=== PATIENT | male | born 1960 | race Caucasian/White ===

== ENCOUNTER → 2017-09-28 05:54 | Outpatient (CLI) | payer BC, SELFPAY ==
[2017-09-28 06:43] LABS: Absolute Lymphocyte Count 1.48 X10^3/ul (0.83-4.51); Absolute Neutrophil Count 1.9 X10^3/uL (2.0-7.7); Basophil# 0.04 X10^3/uL; Basophil% 0.9 % (0-1); Eosinophil# 0.52 X10^3/uL; Eosinophils% 11.8 % (0-5); Hematocrit 41.8 % (40-54); Hemoglobin 14.4 g/dl (13.0-16.5); Lymphocyte # 1.48 X10^3/ul (4.0); Lymphocyte % 33.6 % (19-41); Mean Corp Hgb Conc 34.4 g/gl (32-36); Mean Corpuscular Hgb 31.6 pg (27.0-32.0); Mean Corpuscular Volume 91.9 fL (80-94); Mean Platelet Vol. 9.8 fl (6.2-12.0); Monocyte# 0.46 X10^3/uL; Monocyte% 10.4 % (0-10); Neutrophil # 1.91 X10^3/uL (2.7-7.7); Neutrophil % 43.3 % (47-70); Platelet Count 203 K/mm3 (150-450); RBC Distribution Width CV 12.4 % (11.6-14.6); Red Blood Count 4.55 M/mm3 (4.6-6.2); White Blood Count 4.4 K/mm3 (4.4-11.0)
[2017-09-28 06:44] LABS: POSITIVE COUNT NO; POSITIVE DIFFERENTIAL NO; POSITIVE MORPHOLOGY NO
[2017-09-28 06:55] LABS: AST(SGOT) 21 U/L (15-37); Alanine Aminotransfer ALT/SGPT 24 U/L (16-61); Albumin, Serum 3.6 g/dL (3.2-5.0); Alkaline Phosphatase 63 U/L (45-117); Anion Gap 5 (5-15); BUN 13 mg/dL (7-18); BUN/Creat Ratio 14.8 RATIO (10-20); Calcium,Total 8.8 mg/dL (8.5-10.1); Chloride 106 mmol/L (98-107); Cholesterol 185 mg/dL (200); Creatinine, Serum 0.88 mg/dL (0.70-1.30); EST Glomerular Filtration Rate 95 mL/min (>60); Est Glom Filt Rate - Afr Amer 115 mL/min (>60); Globulin 3.7 g/dL (2.2-4.2); Glucose 95 mg/dL (74-106); High Density Lipoprotein 45 mg/dL; Potassium 4.4 mmol/L (3.5-5.1); Protein, Total 7.3 g/dL (6.4-8.2); Sodium Level 140 mmol/L (136-145); Triglycerides 119 mg/dL; Very Low Density Lipoprotein 24 mg/dL (5-40)
[2017-09-28 08:09] LABS: Hemoglobin A1c 5.6 % (4.2-6.3)
== END ==
PROVIDERS: Family Provider Family Medicine; PCP Family Medicine; Visit Provider Family Medicine
DX: E78.5 Hyperlipidemia, unspecified (principal); E11.9 Type 2 diabetes mellitus without complications
CPT/HCPCS: 36415; 80053; 80061; 83036; 85025

== ENCOUNTER → 2018-01-30 07:13 | Outpatient (CLI) | payer BC, SELFPAY ==
[2018-01-30 09:05] LABS: ALB/GLOB Ratio 0.9 RATIO (0.9-2.4); AST(SGOT) 21 U/L (15-37); Alanine Aminotransfer ALT/SGPT 26 U/L (16-61); Albumin, Serum 3.8 g/dL (3.2-5.0); Alkaline Phosphatase 61 U/L (45-117); Anion Gap 8 (5-15); BUN 16 mg/dL (7-18); BUN/Creat Ratio 20.4 RATIO (10-20); Chloride 103 mmol/L (98-107); Cholesterol 227 mg/dL (200); Creatinine, Serum 0.78 mg/dL (0.70-1.30); EST Glomerular Filtration Rate 108 mL/min (>60); Est Glom Filt Rate - Afr Amer 131 mL/min (>60); Globulin 4.4 g/dL (2.2-4.2); Glucose 115 mg/dL (74-106); High Density Lipoprotein 60 mg/dL; Potassium 4.3 mmol/L (3.5-5.1); Protein, Total 8.2 g/dL (6.4-8.2); Sodium Level 141 mmol/L (136-145); Triglycerides 72 mg/dL; Very Low Density Lipoprotein 14 mg/dL (5-40)
[2018-01-30 09:38] LABS: Hemoglobin A1c 5.5 % (4.2-6.3)
== END ==
PROVIDERS: Family Provider Family Medicine; PCP Family Medicine; Visit Provider Family Medicine
DX: E11.9 Type 2 diabetes mellitus without complications (principal); E78.5 Hyperlipidemia, unspecified
CPT/HCPCS: 36415; 80053; 80061; 83036

== ENCOUNTER 2018-05-08 12:10 | Emergency (ER) | payer BC, SELFPAY ==
[2018-05-08 12:13] VITALS: BP 148/70; PULSE 65; RESP 16; TEMP 36.9; O2SAT 100; BMI 29.5
--- NOTE | 2018-05-08 12:23 | EKG12_ITS ---
Test Reason : PALPATATIONS Blood Pressure : / mmHG Vent. Rate : 058 BPM Atrial Rate : 058 BPM P-R Int : 164 ms QRS Dur : 086 ms QT Int : 396 ms P-R-T Axes : 059 041 020 degrees QTc Int : 388 ms Sinus bradycardia with frequent Premature ventricular complexes Otherwise normal ECG Confirmed by RAN SUMNER, ROSARIO ([id number]), communications editor ISRAEL BARAJAS ([id number]) on 05/10/2018 1:41:03 PM Referred By: AUSTIN Confirmed By:ROSARIO TONG MD
--- NOTE | 2018-05-08 12:24 | ED.DCSUM_ITS ---
- ER Visit Summary Date of Service: 05/08/18 Chief Complaint: Palpitations History of Present Illness: The patient is a 57 M who is had 2 weeks of palpitations. He states he feels them intermittently. They have become more symptomatic today. He thinks that they are PVCs as he has had these in the past. He denies any dizziness, shortness of breath or chest pain. He states he gets worse when he is at work. Physical Examination: Vital signs reviewed. HEENT exam unremarkable. Heart is regular rate and rhythm without murmurs. PVCs noted on exam. Lungs are clear to auscultation. Abdomen is soft and nontender. Extremities reveal no edema. Skin exam normal. Neurologic exam normal. Test Results: EKG was sinus rhythm with a rate of 58. No ST changes. Laboratory studies normal Emergency Department Course and Treatment: On the monitor the patient's heart rate is now in the 70s with multiple PVCs. He is symptomatic with this. I will start him on a low dose of metoprolol, 12.5 mg daily for this. He will need to call his PCP for follow-up. He was educated on symptoms to return to the ED or to stop taking his medication. Treatment Plan: [] Disposition: Discharge Impression: PVCs This note was generated with [employer] dictation software. It may contain incorrect words, spelling, and punctuation that were not noted in review of the chart prior to signing ED Disposition - Plan for ED Patient: Chief Complaint: Palpitations Referrals: Aníbal Tapia MD [Primary Care Provider] -
[2018-05-08 12:30] VITALS: BP 145/64; PULSE 60; RESP 13; O2SAT 99
[2018-05-08 12:40] LABS: Absolute Lymphocyte Count 1.91 X10^3/ul (0.83-4.51); Absolute Neutrophil Count 1.8 X10^3/uL (2.0-7.7); Basophil# 0.08 X10^3/uL; Basophil% 1.7 % (0-1); Eosinophil# 0.34 X10^3/uL; Eosinophils% 7.2 % (0-5); Hematocrit 42.3 % (40-54); Hemoglobin 14.4 g/dl (13.0-16.5); Lymphocyte # 1.91 X10^3/ul (4.0); Lymphocyte % 40.6 % (19-41); Mean Corpuscular Hgb 31.6 pg (27.0-32.0); Mean Platelet Vol. 9.2 fl (6.2-12.0); Monocyte# 0.59 X10^3/uL; Monocyte% 12.6 % (0-10); Neutrophil # 1.78 X10^3/uL (2.7-7.7); Neutrophil % 37.9 % (47-70); POSITIVE COUNT NO; POSITIVE DIFFERENTIAL NO; POSITIVE MORPHOLOGY NO; Platelet Count 182 K/mm3 (150-450); RBC Distribution Width CV 12.3 % (11.6-14.6); RBC Distribution Width SD 41.5 fl (35.1-43.9); Red Blood Count 4.55 M/mm3 (4.6-6.2); White Blood Count 4.7 K/mm3 (4.4-11.0)
[2018-05-08 12:56] LABS: Anion Gap 8 (5-15); BUN 17 mg/dL (7-18); Calcium,Total 9.2 mg/dL (8.5-10.1); Chloride 105 mmol/L (98-107); Creatinine, Serum 0.95 mg/dL (0.70-1.30); EST Glomerular Filtration Rate 87 mL/min (>60); Est Glom Filt Rate - Afr Amer 105 mL/min (>60); Estimated Creatinine Clearance 79.24 ml/min; Glucose 103 mg/dL (74-106); Potassium 3.6 mmol/L (3.5-5.1); Sodium Level 142 mmol/L (136-145)
--- NOTE | 2018-05-08 13:26 | ED.DEP ---
ED Disposition - Plan for ED Patient: Disposition: Home or Assisted Living Chief Complaint: Palpitations Instructions: Premature Ventricular Contractions Prescriptions: Metoprolol Tartrate [Lopressor (beta clinton)] 12.5 mg PO DAILY #30 tab Referrals: Aníbal Tapia MD [Primary Care Provider] -
[2018-05-08 13:41] VITALS: BP 122/73; PULSE 60; RESP 14; O2SAT 97
== END 2018-05-08 13:42 | disposition home or self-care (01) ==
PROVIDERS: Emergency Provider Emergency Medicine; Family Provider Family Medicine; PCP Family Medicine
DX: I49.3 Ventricular premature depolarization (principal); E11.9 Type 2 diabetes mellitus without complications
CPT/HCPCS: 80048; 84484; 85025; 93005; 99285; A4216

== ENCOUNTER → 2018-06-07 06:02 | Outpatient (CLI) | payer BC, SELFPAY ==
[2018-06-03 10:14] VITALS: BMI 29.5
[2018-06-07 07:59] LABS: Hemoglobin A1c 5.9 % (4.2-6.3)
[2018-06-07 08:05] LABS: ALB/GLOB Ratio 0.9 RATIO (0.9-2.4); AST(SGOT) 16 U/L (15-37); Alanine Aminotransfer ALT/SGPT 25 U/L (16-61); Albumin, Serum 3.8 g/dL (3.2-5.0); Alkaline Phosphatase 64 U/L (45-117); Anion Gap 7 (5-15); BUN 16 mg/dL (7-18); Calcium,Total 9.1 mg/dL (8.5-10.1); Chloride 103 mmol/L (98-107); Cholesterol 254 mg/dL (200); Creatinine, Serum 0.84 mg/dL (0.70-1.30); EST Glomerular Filtration Rate 99 mL/min (>60); Est Glom Filt Rate - Afr Amer 120 mL/min (>60); Globulin 4.1 g/dL (2.2-4.2); Glucose 113 mg/dL (74-106); High Density Lipoprotein 62 mg/dL; Potassium 4.1 mmol/L (3.5-5.1); Protein, Total 7.9 g/dL (6.4-8.2); Sodium Level 138 mmol/L (136-145); Triglycerides 151 mg/dL; Very Low Density Lipoprotein 30 mg/dL (5-40)
== END ==
PROVIDERS: Family Provider Family Medicine; PCP Family Medicine; Referring Provider Family Medicine; Visit Provider Family Medicine
DX: E78.5 Hyperlipidemia, unspecified (principal); E11.9 Type 2 diabetes mellitus without complications
CPT/HCPCS: 36415; 80053; 80061; 83036

== ENCOUNTER → 2018-06-09 18:21 | Outpatient (CLI) | payer BC, SELFPAY ==
[2018-06-03 10:14] VITALS: BMI 29.5
[2018-06-09 18:41] LABS: Bacteria 0 SEEN /hpf (None Seen); Mucous, Urine 0 SEEN /hpf (<or=2+); Red Blood Cells-Urine 0 SEEN /hpf (0-5); Squamous Epithelial Cells - UA 0 SEEN /hpf (0-5)
[2018-06-09 18:57] LABS: Color, Urine Yellow (Yellow); Glucose, Dipstick Normal (Normal); Ketone-Dipstick Negative (Negative); Leukocyte Esterase-Dipstick 25 /ul (Negative); Nitrite-Dipstick Negative (Negative); Occult Blood-Urine Negative /ul (Negative); Protein-Dipstick Negative (Negative); Urine Bilirubin Dipstick Negative (Negative); Urine Clarity Clear (Clear); Urine Urobilinogen Normal (Normal)
[2018-06-09 19:08] LABS: White Blood Cells 0-5 SEEN /hpf (0-5)
[2018-06-09 21:46] LABS: Chlamydia Trachomatis by PCR POSITIVE (Negative); Neisserai gonorrhoeae by PCR Negative (Negative); Probe Check PASS; Sample Adequacy Control PASS; Specimen Processing Control PASS
== END ==
PROVIDERS: Family Provider Family Medicine; PCP Family Medicine; Referring Provider Family Medicine; Visit Provider Family Medicine
DX: N34.2 Other urethritis (principal)
CPT/HCPCS: 81001; 87086; 87491; 87591

== ENCOUNTER → 2018-06-22 09:42 | Outpatient (CLI) | payer BC, SELFPAY ==
[2018-06-03 10:14] VITALS: BMI 29.5
[2018-06-22 15:00] LABS: Chlamydia Trachomatis by PCR Negative (Negative); Neisserai gonorrhoeae by PCR Negative (Negative); Probe Check PASS; Sample Adequacy Control PASS; Specimen Processing Control PASS
--- OUTSIDE RECORDS SUMMARY | 2018-08-24 11:18 | XMS RPT_ITS ---
:1960 Author Organization OHIP Support Name Relationship Address Phone BENJI NICHOLS Unavailable [address] + [place] [address] TRUPTI MACHINE Unavailable [address] + [place] [address] BENJI NICHOLS Unavailable [address] + [place] [address] TRUPTI MACHINE Unavailable [address] + [place] [address] BENJI NICHOLS Unavailable [address] + [place] [address] TRUPTI MACHINE Unavailable [address] + [place] [address] BENJI NICHOLS Unavailable [address] + [place] [address] TRUPTI MACHINE Unavailable [address] + [place] [address] BENJI NICHOLS Unavailable [address] + [place] [address] TRUPTI MACHINE Unavailable [address] + [place] [address] TRUPTI MACHINE Unavailable [address] + [place] [address] TRUPTI MACHINE Unavailable [address] + [place] [address] BENJI NICHOLS Unavailable [address] + [place] [address] TRUPTI MACHINE Unavailable [address] + [place] [address] BENJI NICHOLS Unavailable [address] + [place] [address] TRUPTI MACHINE Unavailable [address] + [place] [address] BENJI NICHOLS Unavailable [address] + [place] [address] TRUPTI MACHINE Unavailable [address] + [place] [address] JEFFREY NICHOLSARA Unavailable [address] + [place] [address] TRUPTI MACHINE Unavailable [address] + [place] [address] Care Team Providers Name Role Phone Qian Brown Attending Unavailable MoodLul hutchison Attending Unavailable Schinner, Aníbal Martinez Referring Unavailable Schinner, Aníbal Martinez Attending Unavailable Schinner, Aníbal Martinez Referring Unavailable Schinner, Aníbal E Primary Care Unavailable Schinner, Aníbal Martinez Attending Unavailable Schinner, Aníbal Martinez Primary Care Unavailable Schinner, Aníbal Martinez Referring Unavailable Moodispamitchell, Lul Attending Unavailable Moodispaw, Lul Referring Unavailable Schinner, Aníbal Martinez Primary Care Unavailable Schinner, Aníbal Martinez Attending Unavailable Schinner, Aníbal Martinez Primary Care Unavailable Moodisalex, Lul Attending Unavailable Moodispamitchell, Lul Referring Unavailable Schinner, Aníbal Martinez Primary Care Unavailable Lul Chapman Consulting Unavailable Schinner, Aníbal Martinez Attending Unavailable Schinner, Aníbal Martinez Referring Unavailable Schinner, Aníbal Martinez Primary Care Unavailable Schinner, Aníbal Martinez Attending Unavailable Schinner, Aníbal Martinez Referring Unavailable Schinner, Aníbal Martinez Primary Care Unavailable Schinner, Aníbal Martinez Primary Care Unavailable Trenton Ernst Attending Unavailable PROBLEMS PROBLEMS DATE TYPE CONDITION / CODE ATTENDING STATUS SOURCE 06/22/2018 Unknown I49.3 - Ventricular Lul Chapman Active [place] [facility] depolarization / Hospital I49.3(ICD-10) Repository 06/10/2018 Unknown 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 / E Community N34.2(ICD-10) Hospital Repository 06/07/2018 Unknown E78.5 - Aníbal Tapia Hyperlipidemia, E Community unspecified / Hospital E78.5(ICD-10) Repository 06/07/2018 Unknown E11.9 - Type 2 Aníbal Tapia diabetes mellitus E Community without Hospital complications / Repository E11.9(ICD-10) PROCEDURES PROCEDURES No Procedure Records FoundRESULTS RESULTS STRESS REPORT Observed: 06/22/2018 Status: F Source: [place] 8:59 PM [facility] H[facility]PITAL REPOSITORY [facility] Cardiovascular Services [address] [place] [address] MR#: [id number] Acct: [id number] Name: CASEY NICHOLS Rep #: [id number] : 1960 57 From: Lul Chapman MD Primary Care: Aníbal Tapia MD Status: REG CLI Ordering Dr: Sex: M C Stress Test Report Date: 06/22/2018 Procedure: treadmill stress test Indications: Palpitations; PVCs Consent: Per the patient Procedure: The patient exercised on a Casey protocol for 10 minutes 30 seconds completing Stage III and 1 minute 30 seconds of Stage IV achieving a peak heart rate of 179 beats per minute (104% predicted maximal heart rate) with a peak blood pressure of 188/80 mmHg and a peak MET capacity of approximately 12 METS. Deemed baseline ECG demonstrated sinus bradycardia. The peak exercise ECG demonstrated somatic/motion artifact with no obvious ECG changes. There were no cardiac dysrhythmias pretest, during exercise, however, there were occasional PVCs in recovery. The functional status was considered good. The patient had no complaint of chest discomfort during exercise or recovery. The examination was discontinued secondary to dysrhythmia. Impression: 1. Technically adequate (percent predicted maximal heart rate greater than 85%) exercise tolerance test 2. Peak exercise ECG with semantic/motion artifact with no obvious ECG changes 3. Occasional PVCs and recovery This note was generated using a voice recognition system and there may be incorrect words, spelling or punctuation that were not noted when reviewing the office note prior to saving. 06/22/182058 <Electronically signed by Lul Chapman MD> Date Lul Chapman MD CC: Aníbal Tapia MD; Lul Chapman MD Date Dictated: 06/22/181426 Date Transcribed: 06/22/181426 Boating Safety Officer: PM Signed ECHOCARDIOGRAM COMPLETE Observed: 06/22/2018 Status: F Source: [place] 7:38 PM [facility] HOSPITAL REPOSITORY [facility] Cardiovascular Services [address] [place] [address] Echo Complete 06/22/18 1005 MR#: [id number] Acct: [id number] Name: CASEY NICHOLS Rep #: [id number] : 1960 57 From: Lul Chapman MD Attending Dr: Lul Chapman MD Status: REG CLI Ordering Dr: Lul Chapman MD Date: 06/22/18 Location: [facility] Sex: M C Admitted: Reason For Study: PALPITATIONS Procedure This was a 2D Doppler, Color Flow transthoracic echocardiogram. The exam was of adequate technical quality. Exam performed in department. Left Ventricle Normal LV size. Left ventricular systolic function is normal. The estimated ejection fraction is 60 %. No evidence for diastolic dysfunction. No regional wall motion abnormalities noted. Right Ventricle Normal RV size. Normal systolic function. Atria Normal left atrium. Normal right atrium. No doppler evidence for ASD. Mitral Valve There is no mitral annular calcification. Normal mitral valve. Trivial mitral valve insufficiency. Tricuspid Valve Normal tricuspid valve. Mild tricuspid valve insufficiency. Right ventricular systolic pressure estimated to be 25 mmHg. Aortic Valve Trisinus/trileaflet aortic valve. Normal aortic valve. Pulmonic Valve The pulmonic valve is not well visualized. Mild (1+) pulmonic valve insufficiency. Great Vessels Normal sized aortic root. Pericardium/Pleural No pericardial effusion. MMode/2D Measurements AND Calculations LVIDd: 4.6 cm IVSd: 1.1 cm Ao root diam: 2.9 cm LVIDs: 2.8 cm LVPWd: 1.1 cm RVDd: 3.5 cm FS: 40.3 % LAV(MOD-bp): 58.3 ml LA A4 area: 19.8 cm2 LA dimension(2D): 3.8 cm LAV(MOD-bp) Indexed: 29.8 ml/m2 LAV(MOD-sp2): 59.7 ml LAV(MOD-sp4): 56.9 ml RA A4 area: 16.7 cm2 Doppler Measurements AND Calculations MV E max umang: 97.8 cm/sec Lat Peak E' Umang: 11.2 cm/sec Med Peak E' Umang: 9.3 cm/sec MV A max umang: 58.5 cm/sec E/E' lat: 8.7 E/E' med: 10.5 MV E/A: 1.7 Ao V2 max: 116.2 cm/sec LV V1 max: 96.1 cm/sec PA V2 max: 99.2 cm/sec Ao max P.4 mmHg LV V1 max P.7 mmHg TR max umang: 234.0 cm/sec TR max P.9 mmHg Interpretation Summary Left ventricular systolic function is normal. The estimated ejection fraction is 60 %. Trivial mitral valve insufficiency. Mild tricuspid valve insufficiency. Mild (1+) pulmonic valve insufficiency. Right ventricular systolic pressure estimated to be 25 mmHg. No evidence for diastolic dysfunction. Ordering Physician: Lul Chapman Referring Physician: Aníbal Tapia Performed By: Lauren Reynolds, RDCS, RVT 06/22/181937 Date Lul Chapman MD CC: Aníbal Tapia MD; Lul Chapman MD Date Dictated: 06/22/18 1005 Date Transcribed: 06/22/181937 Boating Safety Officer: Signed CT/NG [facility] BY PCR Collected: 06/22/2018 Status: F Source: [place] 9:43 AM [facility] REPOSITORY TYPE CODE TESTS RESULT OUT OF RANGE REFERENCE UNITS LAB L8200.2100 Negative Normal Chlam Negative Trac PCR LAB L8200.2200 Negative Normal NG by Negative PCR Performed By: #### L8200.2000 #### [facility] [address] [place], [address] URINALYSIS, COMPLETE Collected: 06/09/2018 Status: F Source: [place] 6:39 PM [facility] REPOSITORY Order Comment: How was Urine Obtained? Urine, Random TYPE CODE TESTS RESULT OUT OF RANGE REFERENCE UNITS LAB L400.3000 Yellow COLOR Normal Yellow LAB L400.3050 Clear Normal CLARITY Clear LAB L400.3200 Normal mg/dl Normal GLUCOSE, UR Normal LAB L400.3300 Negative mg/dL Normal BILIRUBIN URINE Negative LAB L400.3400 Negative mg/dl Normal KETONE UR Negative LAB L400.3465 1.002-1.030 Normal SP.GR. DIPSTX 1.010 LAB L400.3550 5.0 - 8.0 pH UR Normal 6.0 LAB L400.3600 Negative mg/dl PROT Normal DIPSTX Negative LAB L400.3700 Normal mg/dl Normal UROBILI Normal LAB L400.3750 Negative Normal NITRITE UR Negative LAB L400.3780 Negative /ul Normal OCCULT BLOOD-UR Negative LAB L400.3800 Negative /ul High LEUK 25 ESTERASE LAB L400.4050 0-5 /hpf WBC Normal 0-5 SEEN LAB L400.4100 0-5 /hpf 0 Normal RBC-UA SEEN LAB L400.4150 0-5 /hpf SQUAM 0 Normal EPI SEEN LAB L400.4300 None Seen /hpf 0 Normal BACTERIA SEEN LAB L400.4350 <or=2+ /hpf 0 Normal MUCUS, URINE SEEN Performed By: #### L400.0001 #### [facility] [address] [place], [address] CT/NG [facility] BY PCR Collected: 06/09/2018 Status: F Source: [place] 6:39 PM [facility] REPOSITORY TYPE CODE TESTS RESULT OUT OF RANGE REFERENCE UNITS LAB L8200.2100 Negative High Chlam POSITIVE Trac PCR LAB L8200.2200 Negative Normal NG by Negative PCR Performed By: #### L8200.2000 #### [facility] [facility] [place], [address] Observed: 06/09/2018 Status: F Source: [place] CULTURE, URINE 6:39 PM [facility] REPOSITORY Urine Culture Culture exhibits no growth. Performed By: #### M100.0650 #### [facility] [address] [facility] [place], [address] HEMOGLOBIN A1C Collected: 06/07/2018 Status: F Source: [place] 6:09 AM [facility] REPOSITORY TYPE CODE TESTS RESULT OUT OF RANGE REFERENCE UNITS LAB L501.9985 4.2-6.3 % Normal HGB A1C 5.9 Performed By: #### L501.9985 #### [facility] [address] [place], [address] COMPREHENSIVE METABOLIC Collected: 06/07/2018 Status: F Source: [place] PROFIL 6:09 AM [facility] REPOSITORY TYPE CODE TESTS RESULT OUT OF RANGE REFERENCE UNITS LAB L501.0100 74-106 mg/dL High GLU 113 Result Comment: Fasting Glucose result from 100 to 125 mg/dL suggests IMPAIRED HOMEOSTASIS per A.D.A. criteria. Please note revised GLUCOSE reference range effective 2017. LAB L501.1000 7-18 mg/dL Normal BUN 16 LAB L501.1100 0.70-1.30 mg/dL Normal CREAT,SERUM 0.84 Result Comment: The validity of the calculated GFR AND GFRAA in patients over 70 years has not been determined. Clinical correlation is essential. LAB L501.1110 >60 mL/min Normal EST GFR 99 Result Comment: Non- GFR Calc LAB L501.1115 >60 mL/min Normal EST GFR - AA 120 Result Comment: GFR Calc LAB L501.1300 10-20 RATIO Normal BUN/CRE 19.0 LAB L501.1500 6.4-8.2 g/dL T Normal PROT 7.9 LAB L501.1800 3.2-5.0 g/dL Normal ALB 3.8 LAB L501.1950 2.2-4.2 g/dL Normal GLOB 4.1 LAB L501.2000 0.9-2.4 RATIO Normal A/G 0.9 LAB L501.2200 8.5-10.1 mg/dL CA Normal 9.1 LAB L501.4100 15-37 U/L Normal AST 16 LAB L501.4305 45-117 U/L Normal ALK P 64 LAB L501.4405 16-61 U/L Normal ALT 25 LAB L501.4600 0.20-1.00 mg/dL T Normal BILI 0.90 LAB L501.5300 136-145 mmol/L NA Normal 138 LAB L501.5600 3.5-5.1 mmol/L K Normal 4.1 LAB L501.5900 98-107 mmol/L CL Normal 103 LAB L501.6100 21.0-32.0 mmol/L Normal CO2 28.0 LAB L501.6200 5-15 Normal GAP 7 Performed By: #### L500.4050, L500.4100 #### [facility] [address] [place], [address] LIPID PROFILE Collected: 06/07/2018 Status: F Source: [place] 6:09 AM [facility] REPOSITORY TYPE CODE TESTS RESULT OUT OF RANGE REFERENCE UNITS LAB L501.4900 200 mg/dL High CHOL 254 Result Comment: <200 mg/dL Desirable 200-240 mg/dL Borderline >240 mg/dL High Risk LAB L501.5000 mg/dL Normal TRIG 151 Result Comment: The drugs N-Acetylcysteine and Metamizole may falsely depress this assay. Serum Triglycerides Reference Interval Normal <150 mg/dL Borderline high 150 - 199 mg/dL High 200 - 499 mg/dL Very High > or = 500 mg/dL LAB L501.6400 mg/dL Normal HDL 62 Result Comment: The drugs N-Acetylcysteine and Metamizole may falsely depress this assay. Reference Range HDL <40 mg/dL Low HDL Cholesterol HDL >or= 60 mg/dL High HDL Cholesterol LAB L501.6500 0-130 mg/dL High LDL 162 LAB L501.6600 5-40 mg/dL Normal VLDL 30 Performed By: #### L500.4050, L500.4100 #### [facility] [address] [place], [address] CARDIOLOGY VISIT Observed: 06/03/2018 Status: F Source: [place] REPORT 11:58 AM [facility] REPOSITORY [facility] [address] [place] [address] OFFICE VISIT Date of Service: 06/03/18 MR#: [id number] Acct: [id number] Name: CASEY NICHOLS Rep #: [id number] : 1960 Provider: Lul Chapman MD Age/Sex: 57/M [facility] Status: Signed HPI HPI Details: CASEY NICHOLS, is a 57 M who presents to the office today for outpatient cardiovascular consultation based on concerns of palpitations and PVCs. He states for a long time he has noted palpitations and occasional PVCs. However he notes over the last several months they appear to become more prominent. This was during a stressful time where he was overweight, denied life insurance based upon an elevated hemoglobin A1c level, and had to undergo lifestyle changes resulting in a 50 pound weight loss as well as decrease in his hemoglobin A1c level allowing him to obtain a life insurance policy. He notes that his palpitations were becoming more frequent. He did not have any other resting or exertional concerns of chest discomfort/sensations nor did he have any evidence of obvious CHF or pulmonary edema. There was no near syncope or syncope. He has been evaluated as an outpatient for his palpitations to his PCP. He has been evaluated in the emergency department. He had laboratory studies which were reportedly unrevealing. An ECG demonstrated sinus rhythm with PVCs. A remote chest x- ray from approximately 1 year ago demonstrated no acute findings. He states he has never had any other cardiovascular diagnostic studies. He was placed on medication with beta-blockers. His beta- clinton dose has been increased. Over time his ectopy appears to be somewhat less prominent to him. He had an ECG in the office today. He was in sinus bradycardia with no acute ECG changes. He also notes that he has decreased his caffeine intake. He denies any obvious alcohol intake. He states he has not been using [id number] decongestants. He has not had any other illicit substance use. 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 Intake Vital Signs06/03/18 Body Mass Index (BMI) 29.5 06/03/18 Height 5 ft 7 in 06/03/18 Weight: 189 lb 06/03/18 Body Mass Index (BMI) 29.6 06/03/18 Blood Pressure 116/60 Intake Visit Reasons: PVCs/Ref. Dr. Tapia Allergies poppyseed oil Allergy (Severe, Verified 06/03/18 10:02) cramping aspirin Allergy (Verified 06/03/18 10:02) Rash banana Allergy (Verified 06/03/18 10:02) Nausea/Vom/Diarrhea Medications metoprolol succinate ER 50 mg tablet,extended release 24 hr 50 mg PO DAILY 06/03/18 [History Confirmed 06/03/18] COUNTS INCLUDE 234 BEDS AT THE [facility] Medical History Premature ventricular contraction (Acute) Surgical History History of hernia repair (Resolved) Family History Father Cancer Prostate, Throat Hypertension COPD (chronic obstructive pulmonary disease) Congestive heart failure Mother Diabetes Sister Diabetes Breast cancer Social History Smoking Status: Never smoker alcohol intake: current details: occasional substance use type: does not use ROS Const Const: Negative for fatigue, weakness, weight gain, weight loss, frequent falls or excessive sweating Eyes Eyes: Negative for change in vision, blurry vision or transient loss of vision ENT ENT: Positive for dizziness (rare sitting to standing since medication); negative for balance problems Cardio Chest Pain: No Palpitations: Yes (past several months palpitations have increased; occasional at this time) feels like its: irregular (spasm) Edema: None Muscle aches with walking: None Resp Respiratory: Negative for SOB with activity or SOB at rest GI GI: Negative vomiting or vomiting blood/hematemesis : Negative for hematuria Musc Musc: Negative for balance problems, muscle aches/ myalgia, muscle weakness or joint pain Skin Skin: Negative non-healing lesions or rash Neuro Neuro: Positive for dizziness (rare sitting to standing since medication); negative for weakness, blurry vision, lightheadedness, frequent falls or orthostatic symptoms Tung Hematologic/Lymphatic: Negative for easy bleeding Endo Endo: Negative for fatigue or excessive sweating Psych Psych: Negative for anxiety or depression Allergy Allergy/Immunology: Negative for hives, Negative for rash Cardiology Exam Const Appearance: cooperative, healthy appearing, comfortable, no acute distress, well developed and well groomed Nutritional Appearance: average body habitus Orientation: alert, awake and oriented x3 Head Head: normal to inspection, normocephalic and atraumatic Ears: hearing grossly normal bilaterally Nose: external nose normal Eyes Eyelids: eyelids normal Conjunctivae: conjunctivae normal Pupils: PERRL EOM: EOM intact bilaterally Neck Neck: normal visual inspection and full ROM Carotids: normal carotid upstroke Chest Chest inspection: normal inspection of the chest, symmetric chest movement and normal respiratory effort Auscultation: Bilateral: Clear to Auscultation Cardio Palpation: normal PMI Rate: regular rate Rhythm: regular rhythm Heart sounds: S1 normal and S2 normal GI GI: normal to inspection, bowel sounds diminished and soft Neuro General: alert, awake, oriented x3, no focal sensory deficit, no focal motor deficits and moves all extremities Skin Skin: no rashes or lesions noted Extremities Pulses: Normal: Right Radial Pulse, Left Radial Pulse Lower Extremity Edema: None: Bilateral Psych Psychological: normal affect Assessment AND Plan 1. Premature ventricular beat I49.3 Plan At the present time he does have palpitations and PVCs. From a cardiac standpoint he will undergo further evaluation. This will include a 24-hour Holter monitor and attempt to further evaluate the quantity of his PVCs as well as any other cardiac dysrhythmias that may be present. He will have an echocardiogram to assess his left ventricular wall motion and systolic function which is important with respect to underlying cardiac ectopy and dysrhythmias. He will also have an exercise tolerance test, without his beta-clinton on board, to evaluate for any obvious stress-induced ventricular ectopy or dysrhythmias, etc. Depending upon his findings he may or may not need further cardiac evaluation and/or adjustment of his medications. In the meantime he was asked to continue to minimize his caffeine intake. Also hopefully as his stressful lifestyle is coming under better control this may have a better impact with respect to his underlying ectopy Orders Orders: 2. Palpitations R00.2 Plan Again he does have palpitations. Thus far he appears to correlate them with his underlying ventricular ectopy. He will continue evaluation as noted above. He does note that with his lifestyle changes coming under better control and his beta-clinton therapy his palpitations and ectopy appears to be under better control as well Plan Detail Additional Comments Thank you for allowing me to participate in the care of your patient. Please don't hesitate to call if any issues arise. This note was generated using a voice recognition system and there may be incorrect words, spelling or punctuation that were not noted when reviewing the office note prior to saving. Follow Up 6 Months (PFM) Coding Level of Care Code Off vis,new,level 3 Diagnoses Premature ventricular beat I49.3 Palpitations R00.2 Coding Level of Care Code Off vis,new,level 3 Diagnoses Premature ventricular beat I49.3 Palpitations R00.2 Supplemental Info Supplemental Information Labs LDL Cholesterol 153 mg/dL (0-130) H 01/30/18 HDL Cholesterol 60 mg/dL (40-) 01/30/18 Triglycerides 72 mg/dL (-199) 01/30/18 VLDL Cholesterol 14 mg/dL (5-40) 01/30/18 Diagnostics Electrocardiogram 06/03/18 Chest X-Ray 06/02/17 06/03/18 8258 <Electronically signed by Lul Chapman MD> Date Lul Chapman MD Cosigner Signature: Date (if applicable) CC: Aníbal Tapia MD 12 LEAD EKG PERFORMED Observed: 06/03/2018 Status: F Source: [place] BY BMS 9:58 AM [facility] REPOSITORY [facility] [address] [place] [address] 12 Lead EKG performed by [facility] 06/03/18 0957 MR#: [id number] Acct: [id number] Name: CASEY NICHOLS Rep #: [id number] : 1960 57 From: Lul Chapman MD Attending Dr: Lul Chapman MD Status: DEP AMB Ordering Dr: Lul Chapman MD Date: 06/03/18 [facility] [facility] Sex: M C Admitted: BMS/12 Lead EKG performed by [facility] ECG Report Interpretation Sinus Bradycardia Electronically signed on 06/03/2018 at 12:04 by Lul Chapman [employer] Version [id number] 06/03/18 1207 Date Lul Chapman MD CC: Aníbal Tapia MD Date Dictated: 06/03/18 0957 Date Transcribed: 06/03/1857 Boating Safety Officer: PM Signed 12 LEAD ELECTROCARDIOGRAM Observed: 05/10/2018 Status: F Source: [place] 1:41 PM [facility] Cardiovascular Services [address] [place] [address] 12 Lead EKG 05/08/18 1225 MR#: [id number] Acct: [id number] Name: CASEY NICHOLS Rep #: [id number] : 1960 57 From: Terry Villalta MD Attending Dr: Status: DEP ER Ordering Dr: Trenton Ernst MD Date: 05/08/18 Location: ED Sex: M C Admitted: Test Reason : PALPATATIONS Blood Pressure : / mmHG Vent. Rate : 058 BPM Atrial Rate : 058 BPM P-R Int : 164 ms QRS Dur : 086 ms QT Int : 396 ms P-R-T Axes : 059 041 020 degrees QTc Int : 388 ms Sinus bradycardia with frequent Premature ventricular complexes Otherwise normal ECG Confirmed by RAN SUMNER, TERRY ([id number]), metropolitan editor ISRAEL BARAJAS ([id number]) on 05/10/2018 1:41:03 PM Referred By: A[place]IN Confirmed By:TERRY VILLALTA MD 05/10/18 1341 Date [place] MD CC: Aníbal Tapia MD; Trenton Ernst MD Signed DISCHARGE INSTRUCTION Observed: 05/08/2018 Status: F Source: [place] 1:27 PM [facility] Medical Records Department [address] [place] [address] Discharge Instruction 05/08/18 1326 MR#: [id number] Acct: [id number] Name: CASEY NICHOLS Rep #: [id number] : 1960 57 From: Trenton Ernst MD PCP: Aníbal Tapia MD Status: REG ER ED Disposition - Plan for ED Patient: Disposition: Home or Assisted Living Chief Complaint: Palpitations Instructions: Premature Ventricular Contractions Prescriptions: Metoprolol Tartrate [Lopressor (beta clinton)] 12.5 mg PO DAILY #30 tab Referrals: Aníbal Tapia MD [Primary Care Provider] - What to do if you have Problems For any increased pain, shortness of breath, bleeding, nausea or vomiting, chest pain, or any unexpected problems, contact your Primary Care Provider. Call [facility] ([phone]) or report to the closest Emergency Room. Call 911 if necessary. 05/08/18 1327 <Electronically signed by Trenton Ernst MD> Date Trenton Ernst MD Cosigner Signature (If Indicated): Date CC: Aníbal Tapia MD EMERGENCY DEPARTMENT Observed: 05/08/2018 Status: F Source: [place] SUMMARY 1:26 PM [facility] REPOSITORY [facility] Medical Records Department [address] [place] [address] Emergency Department Summary 05/08/18 1223 MR#: [id number] Acct: [id number] Name: CASEY NICHOLS Rep #: [id number] : 1960 57 From: Trenton Ernst MD PCP: Aníbal Tapia MD Status: REG ER - ER Visit Summary Date of Service: 05/08/18 Chief Complaint: Palpitations History of Present Illness: The patient is a 57 M who is had 2 weeks of palpitations. He states he feels them intermittently. They have become more symptomatic today. He thinks that they are PVCs as he has had these in the past. He denies any dizziness, shortness of breath or chest pain. He states he gets worse when he is at work. Physical Examination: Vital signs reviewed. HEENT exam unremarkable. Heart is regular rate and rhythm without murmurs. PVCs noted on exam. Lungs are clear to auscultation. Abdomen is soft and nontender. Extremities reveal no edema. Skin exam normal. Neurologic exam normal. Test Results: EKG was sinus rhythm with a rate of 58. No ST changes. Laboratory studies normal Emergency Department Course and Treatment: On the monitor the patient's heart rate is now in the 70s with multiple PVCs. He is symptomatic with this. I will start him on a low dose of metoprolol, 12.5 mg daily for this. He will need to call his PCP for follow-up. He was educated on symptoms to return to the ED or to stop taking his medication. Treatment Plan: [] Disposition: Discharge Impression: PVCs This note was generated with S*Bioation software. It may contain incorrect words, spelling, and punctuation that were not noted in review of the chart prior to signing ED Disposition - Plan for ED Patient: Chief Complaint: Palpitations Referrals: Aníbal Tapia MD [Primary Care Provider] - What to do if you have Problems For any increased pain, shortness of breath, bleeding, nausea or vomiting, chest pain, or any unexpected problems, contact your Primary Care Provider. Call [facility] ([phone]) or report to the closest Emergency Room. Call 911 if necessary. 05/08/18 1326 <Electronically signed by Trenton Ernst MD> Date Trenton Ernst MD Cosigner Signature (If Indicated): Date CC: Aníbal Tapia MD CBC W/DIFF, AUTOMATED Collected: 05/08/2018 Status: F Source: JAZMINE 12:31 PM [facility] REPOSITORY TYPE CODE TESTS RESULT OUT OF RANGE REFERENCE UNITS LAB L100.1000 4.4-11.0 K/mm3 Normal WBC 4.7 LAB L100.1200 4.6-6.2 M/mm3 Low RBC 4.55 LAB L100.1300 13.0-16.5 g/dl Normal HGB 14.4 LAB L100.1400 40-54 % Normal HCT 42.3 LAB L100.1500 80-94 fL Normal MCV 93.0 LAB L100.1600 27.0-32.0 pg Normal MCH 31.6 LAB L100.1700 32-36 g/gl Normal MCHC 34.0 LAB L100.1810 11.6-14.6 % Normal RDW CV 12.3 LAB L100.1820 35.1-43.9 fl Normal RDW SD 41.5 LAB L100.1900 150-450 K/mm3 Normal PLT 182 LAB L100.2000 6.2-12.0 fl Normal MPV 9.2 LAB L100.2100 47-70 % Low NEUT% 37.9 LAB L100.2200 19-41 % Normal LY% 40.6 LAB L100.2300 0-10 % High MONO% 12.6 LAB L100.2400 0-5 % High EO% 7.2 LAB L100.2500 0-1 % High BASO% 1.7 LAB L100.2550 0.0-0.9 % Normal IM GRAN % 0.000 Result Comment: IG% - Immature Granulocytes (promyelocytes, myelocytes and metamyelocytes) > 1% indicates that a LEFT SHIFT is Present. LAB L100.2620 2.0-7.7 X10 3/uL Low Absolute Neut 1.8 LAB L100.2720 0.83-4.51 X10 3/ul Normal Absolute Lymph 1.91 Performed By: #### L100.0100 #### [facility] [address] [place], [place], [address] BASIC METABOLIC Collected: 05/08/2018 Status: F Source: TROY PROFILE (BMP) 12:31 PM [facility] REPOSITORY TYPE CODE TESTS RESULT OUT OF RANGE REFERENCE UNITS LAB L501.0100 74-106 mg/dL Normal GLU 103 Result Comment: Fasting Glucose result from 100 to 125 mg/dL suggests IMPAIRED HOMEOSTASIS per A.D.A. criteria. Please note revised GLUCOSE reference range effective 2017. LAB L501.1000 7-18 mg/dL Normal BUN 17 LAB L501.1100 0.70-1.30 mg/dL Normal CREAT,SERUM 0.95 Result Comment: The validity of the calculated GFR AND GFRAA in patients over 70 years has not been determined. Clinical correlation is essential. LAB L501.1110 >60 mL/min Normal EST GFR 87 Result Comment: Non- GFR Calc LAB L501.1115 >60 mL/min Normal EST GFR - AA 105 Result Comment: GFR Calc LAB L501.1255 ml/min Normal Estimated CRCL 79.24 LAB L501.1300 10-20 RATIO Normal BUN/CRE 18.0 LAB L501.2200 8.5-10 mg/dL Normal .1 CA 9.2 LAB L501.5300 136-14 mmol/L Normal 5 NA 142 LAB L501.5600 3.5-5. mmol/L Normal 1 K 3.6 LAB L501.5900 98-107 mmol/L Normal CL 105 LAB L501.6100 21.0-3 mmol/L Normal 2.0 CO2 29.0 LAB L501.6200 5-15 Normal GAP 8 Performed By: #### L500.2500, L501.4010 #### [facility] [address] [place], [address] TROPONIN-I Collected: 05/08/2018 Status: F Source: JAZMINE 12:31 PM [facility] REPOSITORY TYPE CODE TESTS RESULT OUT OF RANGE REFERENCE UNITS LAB L501.4010 <0.045 ng/mL Normal < 0.015 TROPONIN-I Result Comment: TROPONIN-I EXPECTED VALUES <0.045 Negative 0.045 - 0.590 Consistent with Cardiac Damage > OR = 0.600 Critical Value Not every elevated troponin is indicative of IL. These values should be used with clinical judgement in examining the patient's clinical picture for diagnosis. To establish a diagnosis of IL versus myocardial injury, there must be a demonstrated rise and/or fall in the troponin values, in addition to ischemic symptoms, EKG changes, new regional wall motion abnormality, and/or angiographical evidence. PLEASE NOTE: REFERENCE RANGES EDITED 17 Performed By: #### L500.2500, L501.4010 #### [facility] [address] [place], [address] COMPREHENSIVE METABOLIC Collected: 01/30/2018 Status: F [facility] REPOSITORY TYPE CODE TESTS RESULT OUT OF RANGE REFERENCE UNITS LAB L501.0100 74-106 mg/dL High GLU 115 Result Comment: Fasting Glucose result from 100 to 125 mg/dL suggests IMPAIRED HOMEOSTASIS per A.D.A. criteria. Please note revised GLUCOSE reference range effective 2017. LAB L501.1000 7-18 mg/dL Normal BUN 16 LAB L501.1100 0.70-1.30 mg/dL Normal CREAT,SERUM 0.78 Result Comment: The validity of the calculated GFR AND GFRAA in patients over 70 years has not been determined. Clinical correlation is essential. LAB L501.1110 >60 mL/min Normal EST GFR 108 Result Comment: Non- GFR Calc LAB L501.1115 >60 mL/min Normal EST GFR - AA 131 Result Comment: GFR Calc LAB L501.1300 10-20 RATIO High BUN/CRE 20.4 LAB L501.1500 6.4-8.2 g/dL T Normal PROT 8.2 LAB L501.1800 3.2-5.0 g/dL Normal ALB 3.8 LAB L501.1950 2.2-4.2 g/dL High GLOB 4.4 LAB L501.2000 0.9-2.4 RATIO Normal A/G 0.9 LAB L501.2200 8.5-10.1 mg/dL CA Normal 9.0 LAB L501.4100 15-37 U/L Normal AST 21 LAB L501.4305 45-117 U/L Normal ALK P 61 LAB L501.4405 16-61 U/L Normal ALT 26 LAB L501.4600 0.20-1.00 mg/dL T Normal BILI 0.60 LAB L501.5300 136-145 mmol/L NA Normal 141 LAB L501.5600 3.5-5.1 mmol/L K Normal 4.3 LAB L501.5900 98-107 mmol/L CL Normal 103 LAB L501.6100 21.0-32.0 mmol/L Normal CO2 30.0 LAB L501.6200 5-15 Normal GAP 8 Performed By: #### L500.4050, L500.4100 #### [facility] [address] [place], [address] LIPID PROFILE Collected: 01/30/2018 Status: F Source: JAZMINE 7:53 AM [facility] REPOSITORY TYPE CODE TESTS RESULT OUT OF RANGE REFERENCE UNITS LAB L501.4900 200 mg/dL High CHOL 227 Result Comment: <200 mg/dL Desirable 200-240 mg/dL Borderline >240 mg/dL High Risk LAB L501.5000 mg/dL Normal TRIG 72 Result Comment: The drugs N-Acetylcysteine and Metamizole may falsely depress this assay. Serum Triglycerides Reference Interval Normal <150 mg/dL Borderline high 150 - 199 mg/dL High 200 - 499 mg/dL Very High > or = 500 mg/dL LAB L501.6400 mg/dL Normal HDL 60 Result Comment: The drugs N-Acetylcysteine and Metamizole may falsely depress this assay. Reference Range HDL <40 mg/dL Low HDL Cholesterol HDL >or= 60 mg/dL High HDL Cholesterol LAB L501.6500 0-130 mg/dL High LDL 153 LAB L501.6600 5-40 mg/dL Normal VLDL 14 Performed By: #### L500.4050, L500.4100 #### [facility] [address] [place], [address] HEMOGLOBIN A1C Collected: 01/30/2018 Status: F Source: [place]OY 7:53 AM [facility] REPOSITORY TYPE CODE TESTS RESULT OUT OF RANGE REFERENCE UNITS LAB L501.9985 4.2-6.3 % Normal HGB A1C 5.5 Performed By: #### L501.9985 #### [facility] [address] [place], [address] CBC W/DIFF, AUTOMATED Collected: 09/28/2017 Status: F Source: TROY 5:58 AM [facility] REPOSITORY Order Comment: Order Date: 09/23/17 Order Info: 0184-1 - CBCD TYPE CODE TESTS RESULT OUT OF RANGE REFERENCE UNITS LAB L100.1000 4.4-11.0 K/mm3 Normal WBC 4.4 LAB L100.1200 4.6-6.2 M/mm3 Low RBC 4.55 LAB L100.1300 13.0-16.5 g/dl Normal HGB 14.4 LAB L100.1400 40-54 % Normal HCT 41.8 LAB L100.1500 80-94 fL Normal MCV 91.9 LAB L100.1600 27.0-32.0 pg Normal MCH 31.6 LAB L100.1700 32-36 g/gl Normal MCHC 34.4 LAB L100.1810 11.6-14.6 % Normal RDW CV 12.4 LAB L100.1820 35.1-43.9 fl Normal RDW SD 41.0 LAB L100.1900 150-450 K/mm3 Normal PLT 203 LAB L100.2000 6.2-12.0 fl Normal MPV 9.8 LAB L100.2100 47-70 % Low NEUT% 43.3 LAB L100.2200 19-41 % Normal LY% 33.6 LAB L100.2300 0-10 % High MONO% 10.4 LAB L100.2400 0-5 % High EO% 11.8 LAB L100.2500 0-1 % Normal BASO% 0.9 LAB L100.2550 0.0-0.9 % Normal IM GRAN % 0.000 Result Comment: IG% - Immature Granulocytes (promyelocytes, myelocytes and metamyelocytes) > 1% indicates that a LEFT SHIFT is Present. LAB L100.2620 2.0-7.7 X10 3/uL Low Absolute Neut 1.9 LAB L100.2720 0.83-4.51 X10 3/ul Normal Absolute Lymph 1.48 Performed By: #### L100.0100, L500.4050, L500.4100, L501.9985 #### [facility] [address] [place], [address] COMPREHENSIVE METABOLIC Collected: 09/28/2017 Status: F Source: [facility] 5:58 AM [facility] REPOSITORY Order Comment: Order Date: 09/23/17 Order Info: 0786-1 - CMP Order Info: 16611-6 - LIPID TYPE CODE TESTS RESULT OUT OF RANGE REFERENCE UNITS LAB L501.0100 74-106 mg/dL Normal GLU 95 Result Comment: Please note revised GLUCOSE reference range effective 2017. LAB L501.1000 7-18 mg/dL Normal BUN 13 LAB L501.1100 0.70-1.30 mg/dL Normal CREAT,SERUM 0.88 Result Comment: The validity of the calculated GFR AND GFRAA in patients over 70 years has not been determined. Clinical correlation is essential. LAB L501.1110 >60 mL/min Normal EST GFR 95 Result Comment: Non- GFR Calc LAB L501.1115 >60 mL/min Normal EST GFR - AA 115 Result Comment: GFR Calc LAB L501.1300 10-20 RATIO Normal BUN/CRE 14.8 LAB L501.1500 6.4-8.2 g/dL T Normal PROT 7.3 LAB L501.1800 3.2-5.0 g/dL Normal ALB 3.6 LAB L501.1950 2.2-4.2 g/dL Normal GLOB 3.7 LAB L501.2000 0.9-2.4 RATIO Normal A/G 1.0 LAB L501.2200 8.5-10.1 mg/dL CA Normal 8.8 LAB L501.4100 15-37 U/L Normal AST 21 LAB L501.4305 45-117 U/L Normal ALK P 63 LAB L501.4405 16-61 U/L Normal ALT 24 LAB L501.4600 0.20-1.00 mg/dL T Normal BILI 0.40 LAB L501.5300 136-145 mmol/L NA Normal 140 LAB L501.5600 3.5-5.1 mmol/L K Normal 4.4 LAB L501.5900 98-107 mmol/L CL Normal 106 LAB L501.6100 21.0-32.0 mmol/L Normal CO2 29.0 LAB L501.6200 5-15 Normal GAP 5 Performed By: #### L100.0100, L500.4050, L500.4100, L501.9985 #### [facility] [address] [facility] [place], [place], [address] LIPID PROFILE Collected: 09/28/2017 Status: F Source: TROY 5:58 AM [facility] REPOSITORY Order Comment: Order Date: 09/23/17 Order Info: [id number] - CMP Order Info: [id number] - LIPID TYPE CODE TESTS RESULT OUT OF RANGE REFERENCE UNITS LAB L501.4900 200 mg/dL Normal CHOL 185 Result Comment: <200 mg/dL Desirable 200-240 mg/dL Borderline >240 mg/dL High Risk LAB L501.5000 mg/dL Normal TRIG 119 Result Comment: The drugs N-Acetylcysteine and Metamizole may falsely depress this assay. Serum Triglycerides Reference Interval Normal <150 mg/dL Borderline high 150 - 199 mg/dL High 200 - 499 mg/dL Very High > or = 500 mg/dL LAB L501.6400 mg/dL Normal HDL 45 Result Comment: The drugs N-Acetylcysteine and Metamizole may falsely depress this assay. Reference Range HDL <40 mg/dL Low HDL Cholesterol HDL >or= 60 mg/dL High HDL Cholesterol LAB L501.6500 0-130 mg/dL Normal LDL 116 LAB L501.6600 5-40 mg/dL Normal VLDL 24 Performed By: #### L100.0100, L500.4050, L500.4100, L501.9985 #### [facility] [address] [place], [place], [address] HEMOGLOBIN A1C Collected: 09/28/2017 Status: F Source: JAZMINE 5:58 AM [facility] REPOSITORY Order Comment: Order Date: 09/23/17 Order Info: 4548-4 - A1C TYPE CODE TESTS RESULT OUT OF RANGE REFERENCE UNITS LAB L501.9985 4.2-6.3 % Normal HGB A1C 5.6 Performed By: #### L100.0100, L500.4050, L500.4100, L501.9985 #### [facility] [address] [place], [address] ALLERGIES ALLERGIES DATE TYPE / CODE NAME / CODE REACTION SEVERITY SOURCE 06/03/2018 Drug aspirin/[id number] Rash Unknown [facility] Allergy/416 87(RXNORM) [facility] 064176(SNOM Repository ED CT) 06/03/2018 Drug banana/[id number] Nausea/Vom/Diar Unknown [facility] Allergy/416 7(RXNORM) [facility] 133296(SNOM Repository ED CT) 06/03/2018 Drug poppyseed cramping SV [facility] Allergy/416 oil/[id number]( Hospital 337660(SNOM XNORM) Repository ED CT) ENCOUNTERS ENCOUNTERS ADMIT/DISCHARGE ACCOUNT ADMITTING ENCOUNTER LOCATION SOURCE NUMBER CLASS 06/22/2018 [id number] Ambulatory BMSBuilding:B [place] 2 MS.CF.[facility] Repository 06/22/2018 [id number] Ambulatory [place] Jazmine 6 [facility] ing:[facility] Repository 06/22/2018 [id number] Ambulatory [place] Jazmine 8 [facility] ing:MFPLAB Repository 06/09/2018 [id number] Ambulatory [place] Jazmine 0 [facility] ing:LABSPEC Repository 06/07/2018 [id number] Ambulatory Jazmine [place] 5 [facility] ing:LAB Repository 06/03/2018/ [id number] Ambulatory BMSBuilding:B Jazmine 9 5 MS.[facility] Repository 05/26/2018 [id number] Ambulatory BMSBuilding:B [place] 1 MS.[facility] Repository 05/08/2018/ [id number] Emergency Jazmine Jazmine 8 4 [facility] ing:ED Repository 01/30/2018 [id number] Ambulatory [place] 3 [facility] ing:LAB Repository 09/28/2017 [id number] Ambulatory [place] Jazmine 4 [facility] ing:LAB Repository PAYERS PAYERS ENCOUNTER GUARANTOR PAYER SUBSCRIBER SOURCE 06/22/2018 CASEY Killian [id number] Primary CASEY A St[place] JAQUAN Insurance:ANTHEMPolic BYLERDOB: [facility] angelica MOE y Number: [id number] 61839Xrs: 330 [id number] Repository [phone] () Date:9675-38-19OO [address] [place] [address] 51535OO: 06/22/2018 Secondary CASEY A Jazmine Insurance:[facility] BYLERDOB: [facility] Number: [id number] Hospital [id number] Repository Date:2018-06-03 06/22/2018 Tertiary NOT GIVENUNK Jazmine Insurance:SELF PAY [facility] Number: Effective Repository Date:2018-06-22 06/22/2018 CASEY A [id number] Primary CASEY A [place] JAQUAN Insurance:ANTHEMPolic BYLERDOB: [facility] angelica MOE y Number: [id number] Hospital 74238Ucs: [phone]) [id number] Repository [phone] () Date:4960-81-57MG [address] [place] [address] 05812MX: 06/22/2018 Secondary CASEY A Stigler Insurance:[facility] P[facility] BYLERDOB: [facility] Number: [id number] Hospital [id number] Repository Date:2018-06-03 06/22/2018 Tertiary NOT GIVENUNK [place] Insurance:SELF PAY [facility] Number: Effective Repository Date:2018-06-03 06/22/2018 CASEY A [id number] Primary CASEY A St[place] JAQUAN Insurance:ANTHEMPolic BYLERDOB: [facility] angelica MOE y Number: [id number] Hospital 22273Vrb: (258) [id number] Repository [phone] () Date:8941-39-12WZ [address] [place] [address] 49564AA: 06/22/2018 Secondary NOT GIVENUNK Jazmine Insurance:SELF PAY [facility] Number: Effective Repository Date:2018-06-22 06/09/2018 CASEY HAMPTON Primary CASEY A St[place] JAQUAN Insurance:ANTHEMPolic BYLERDOB: [facility] ABHIangelica y Number: [id number] Hospital 63389Yme: (330) [id number] Repository [phone] () Date:3720-13-25WT [address] [place] [address] 62275UE: 06/09/2018 Secondary NOT GIVENUNK Jazmine Insurance:SELF PAY [facility] Number: Effective Repository Date:2018-06-09 06/07/2018 CASEY Maria D [id number] Primary CASEY A [place] JAQUAN Insurance:ANTHEMPolic BYLERDOB: [facility] ABHI angelica y Number: [id number] Hospital [id number]: (330 [id number] Repository [phone] () Date:2456-92-97XZ [address] [place] [address] 96966LC: 06/07/2018 Secondary NOT GIVENUNK [place] Insurance:SELF PAY [facility] Number: Effective Repository Date:2018-06-07 06/03/2018 CASEY Maria D [id number] Primary CASEY A Stig[place] JAQUAN Insurance:ANTHEMPolic BYLERDOB: [facility] ABHIangelica y Number: [id number] Hospital [id number]: (330 [id number] Repository [phone] () Date:0418-44-58TG [address] [place] [address] 70010CD: 06/03/2018 Secondary NOT GIVENUNK Jazmine Insurance:SELF PAY [facility] Number: Effective Repository Date:2018-06-03 05/26/2018 CASEY Maria D [id number] Primary CASEY A St[place] JAQUAN Insurance:ANTHEMPolic BYLERDOB: [facility] angelica MOE y Number: [id number] Hospital [id number]: (330 [id number] Repository [phone] () Date:4540-01-62CQ [address] [place] [address] 87616WC: 05/26/2018 Secondary NOT GIVENUNK [place] Insurance:SELF PAY [facility] Number: Effective Repository Date:2018-05-26 05/08/2018 CASEY [id number] Primary CASEY A Stig[place] JAQUAN Insurance:ANTHEMPolic BYLERDOB: [facility] MOE y Number: [id number] Hospital 99275Oww: (330) [id number] Repository [phone] () Date:4808-12-88LX [address] [place] [address] 30336YZ: 05/08/2018 Secondary NOT GIVENUNK Jazmine Insurance:SELF PAY [facility] Number: Effective Repository Date:2018-05-08 01/30/2018 CASEY Maria D [id number] Primary CASEY A St[place] JAQUAN Insurance:ANTHEMPolic BYLERDOB: [facility] angelica MOE y Number: [id number] Hospital [id number]: (330) [id number] Repository [phone] () Date:6373-61-52CU [address] [place] [address] 13513TT: 01/30/2018 Secondary NOT GIVENUNK [place] Insurance:SELF PAY [facility] Number: Effective Repository Date:2018-01-29 09/28/2017 CASEY A [id number] Primary CASEY A Stig[place] JAQUAN Insurance:ANTHEMPolic BYLERDOB: [facility] angelica MOE y Number: [id number] Hospital [id number]: (330) [id number] Repository [phone] () Date:3287-67-29NJ [address] [place] [address] 97213OS: 09/28/2017 Secondary NOT GIVENUNK Jazmine Insurance:SELF PAY [facility] Number: Effective Repository Date:2017-09-28
== END ==
PROVIDERS: Family Provider Family Medicine; PCP Family Medicine; Visit Provider Family Medicine
DX: A74.9 Chlamydial infection, unspecified (principal)
CPT/HCPCS: 87491; 87591

== ENCOUNTER → 2018-06-22 09:57 | Outpatient (CLI) | payer BC, SELFPAY ==
[2018-06-03 10:14] VITALS: BMI 29.5
--- NOTE | 2018-06-22 10:00 | ECHOD_ITS ---
Reason For Study: PALPITATIONS Procedure This was a 2D Doppler, Color Flow transthoracic echocardiogram. The exam was of adequate technical quality. Exam performed in department. Left Ventricle Normal LV size. Left ventricular systolic function is normal. The estimated ejection fraction is 60 %. No evidence for diastolic dysfunction. No regional wall motion abnormalities noted. Right Ventricle Normal RV size. Normal systolic function. Atria Normal left atrium. Normal right atrium. No doppler evidence for ASD. Mitral Valve There is no mitral annular calcification. Normal mitral valve. Trivial mitral valve insufficiency. Tricuspid Valve Normal tricuspid valve. Mild tricuspid valve insufficiency. Right ventricular systolic pressure estimated to be 25 mmHg. Aortic Valve Trisinus/trileaflet aortic valve. Normal aortic valve. Pulmonic Valve The pulmonic valve is not well visualized. Mild (1+) pulmonic valve insufficiency. Great Vessels Normal sized aortic root. Pericardium/Pleural No pericardial effusion. MMode/2D Measurements & Calculations LVIDd: 4.6 cm IVSd: 1.1 cm Ao root diam: 2.9 cm LVIDs: 2.8 cm LVPWd: 1.1 cm RVDd: 3.5 cm FS: 40.3 % LAV(MOD-bp): 58.3 ml LA A4 area: 19.8 cm2 LA dimension(2D): 3.8 cm LAV(MOD-bp) Indexed: 29.8 ml/m2 LAV(MOD-sp2): 59.7 ml LAV(MOD-sp4): 56.9 ml RA A4 area: 16.7 cm2 Doppler Measurements & Calculations MV E max umang: 97.8 cm/sec Lat Peak E' Umang: 11.2 cm/sec Med Peak E' Umang: 9.3 cm/sec MV A max umang: 58.5 cm/sec E/E' lat: 8.7 E/E' med: 10.5 MV E/A: 1.7 Ao V2 max: 116.2 cm/sec LV V1 max: 96.1 cm/sec PA V2 max: 99.2 cm/sec Ao max P.4 mmHg LV V1 max P.7 mmHg TR max umang: 234.0 cm/sec TR max P.9 mmHg Interpretation Summary Left ventricular systolic function is normal. The estimated ejection fraction is 60 %. Trivial mitral valve insufficiency. Mild tricuspid valve insufficiency. Mild (1+) pulmonic valve insufficiency. Right ventricular systolic pressure estimated to be 25 mmHg. No evidence for diastolic dysfunction. Ordering Physician: Lul Chapman Referring Physician: Aníbal Tapia Performed By: Lauren Reynolds, CLAIRE, RVT
--- NOTE | 2018-06-22 14:27 | STRESSREP ---
Stress Test Report Date: 06/22/2018 Procedure: treadmill stress test Indications: Palpitations; PVCs Consent: Per the patient Procedure: The patient exercised on a Casey protocol for 10 minutes 30 seconds completing Stage III and 1 minute 30 seconds of Stage IV achieving a peak heart rate of 179 beats per minute (104% predicted maximal heart rate) with a peak blood pressure of 188/80 mmHg and a peak MET capacity of approximately 12 METS. Deemed baseline ECG demonstrated sinus bradycardia. The peak exercise ECG demonstrated somatic/motion artifact with no obvious ECG changes. There were no cardiac dysrhythmias pretest, during exercise, however, there were occasional PVCs in recovery. The functional status was considered good. The patient had no complaint of chest discomfort during exercise or recovery. The examination was discontinued secondary to dysrhythmia. Impression: 1. Technically adequate (percent predicted maximal heart rate greater than 85%) exercise tolerance test 2. Peak exercise ECG with semantic/motion artifact with no obvious ECG changes 3. Occasional PVCs and recovery This note was generated using a voice recognition system and there may be incorrect words, spelling or punctuation that were not noted when reviewing the office note prior to saving.
--- OUTSIDE RECORDS SUMMARY | 2018-08-24 12:13 | XMS RPT_ITS ---
:1960 Author Organization OHIP Support Name Relationship Address Phone BENJI NICHOLS Unavailable [address] + [place] [address] TRUPTI MACHINE Unavailable [address] + [place] [address] BENJI NICHOLS Unavailable [address] + [place] [address] TRUPTI MACHINE Unavailable [address] + [place] [address] BENJI NICHOLS Unavailable [address] + [place] [address] TRUPTI MACHINE Unavailable [address] + [place] [address] BENJI NICHOLS Unavailable [address] + [place] [address] TRUPTI MACHINE Unavailable [address] + [place] [address] BENJI NICHOLS Unavailable [address] + [place] [address] TRUPTI MACHINE Unavailable [address] + [place] [address] TRUPTI MACHINE Unavailable [address] + [place] [address] TRUPTI MACHINE Unavailable [address] + [place] [address] BENJI NICHOLS Unavailable [address] + [place] [address] TRUPTI MACHINE Unavailable [address] + [place] [address] BENJI NICHOLS Unavailable [address] + [place] [address] TRUPTI MACHINE Unavailable [address] + [place] [address] BENJI NICHOLS Unavailable [address] + [place] [address] TRUPTI MACHINE Unavailable [address] + [place] [address] JEFFREY NICHOLSARA Unavailable [address] + [place] [address] TRUPTI MACHINE Unavailable [address] + [place] [address] Care Team Providers Name Role Phone Qian [...] 06/22/2018 Status: F Source: [place] 8:59 PM [facility] HOSPITAL REPOSITORY [facility] Cardiovascular Services [address] [place] [address] MR#: [id number] Acct: [id number] Name: CASEY NICHOLS Rep #: [id number] : 1960 57 From: Lul Chapman MD [...] MD Date Dictated: 06/22/181426 Date Transcribed: 06/22/181426 Telephone Appointment Clerk: PM Signed ECHOCARDIOGRAM COMPLETE Observed: 06/22/2018 Status: F Source: [place] 7:38 PM [facility] HOSPITAL REPOSITORY [facility] Cardiovascular Services [address] [place] [address] Echo Complete 06/22/18 1005 MR#: [id number] Acct: [id number] Name: CASEY NICHOLS Rep #: [id number] : 1960 57 From: Lul Chapman MD Attending Dr: Lul Chapman MD Status: REG CLI Ordering Dr: Lul Chapman MD Date: 06/22/18 Location: [facility] Sex: M C Admitted: Reason For Study: [...] Date Dictated: 06/22/18 1005 Date Transcribed: 06/22/181937 Telephone Appointment Clerk: Signed CT/NG [facility] BY PCR Collected: 06/22/2018 Status: F Source: [place] 9:43 AM [facility] REPOSITORY TYPE CODE TESTS RESULT OUT OF RANGE REFERENCE UNITS LAB L8200.2100 Negative Normal Chlam Negative Trac PCR LAB L8200.2200 Negative Normal NG by Negative PCR Performed By: #### L8200.2000 #### [facility] [address] [place], [address] URINALYSIS, COMPLETE Collected: 06/09/2018 Status: F Source: [place] 6:39 PM [facility] REPOSITORY Order Comment: How was Urine Obtained? [...] URINE SEEN Performed By: #### L400.0001 #### [facility] [address] [place], [address] CT/NG WCH BY PCR Collected: 06/09/2018 Status: F Source: [place] 6:39 PM [facility] REPOSITORY TYPE CODE TESTS RESULT OUT OF RANGE REFERENCE UNITS LAB L8200.2100 Negative High Chlam POSITIVE Trac PCR LAB L8200.2200 Negative Normal NG by Negative PCR Performed By: #### L8200.2000 #### [facility] [facility], [address] Observed: 06/09/2018 Status: F Source: [place] CULTURE, URINE 6:39 PM [facility] REPOSITORY Urine Culture Culture exhibits no growth. Performed By: #### M100.0650 #### [facility] [address] [place], [address] HEMOGLOBIN A1C Collected: 06/07/2018 Status: F Source: [place] 6:09 AM [facility] REPOSITORY TYPE CODE TESTS RESULT OUT OF RANGE REFERENCE UNITS LAB L501.9985 4.2-6.3 % Normal HGB A1C 5.9 Performed By: #### L501.9985 #### [facility] [address] [place], [address] COMPREHENSIVE METABOLIC Collected: 06/07/2018 Status: F Source: [place] PROFIL 6:09 AM [facility] REPOSITORY TYPE CODE TESTS RESULT OUT OF [...] 7 Performed By: #### L500.4050, L500.4100 #### [facility] [address] [place], [address] LIPID PROFILE Collected: 06/07/2018 Status: F Source: [place] 6:09 AM [facility] REPOSITORY TYPE CODE TESTS RESULT OUT OF [...] 30 Performed By: #### L500.4050, L500.4100 #### [facility] [address] [place], [address] CARDIOLOGY VISIT Observed: 06/03/2018 Status: F Source: [place] REPORT 11:58 AM [facility] REPOSITORY [facility] [address] [place] [address] OFFICE VISIT Date of Service: 06/03/18 MR#: [id number] Acct: [id number] Name: CASEY NICHOLS Rep #: [id number] : 1960 Provider: Lul Chapman MD Age/Sex: 57/M [place] [facility] [place]: Signed HPI HPI Details: CASEY NICHOLS, [...] He states he has not been using hryk-jub-ucpjptu decongestants. He has not had any other illicit substance use. 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 Intake Vital Signs06/03/18 Body Mass Index (BMI) [...] mg PO DAILY 06/03/18 [History Confirmed 06/03/18] [facility] Medical History Premature ventricular contraction (Acute) [...] Diagnostics Electrocardiogram 06/03/18 Chest X-Ray 06/02/17 06/03/18 1528 <Electronically signed by Lul Chapman MD> Date Lul Chapman MD Cosigner Signature: Date (if applicable) CC: Aníbal Tapia MD 12 LEAD EKG PERFORMED Observed: 06/03/2018 Status: F Source: [place] BY BMS 9:58 AM [facility] REPOSITORY [facility] [address] [place] [address] 12 Lead EKG performed by [facility] 06/03/18 0957 MR#: [id number] Acct: [id number] Name: CASEY NICHOLS Rep #: [id number] : 1960 57 From: Lul Chapman MD Attending Dr: Lul Chapman MD Status: DEP AMB Ordering Dr: Lul Chapman MD Date: 06/03/18 [place] [facility] [place]: M C Admitted: BMS/12 Lead EKG performed by [facility] ECG Report Interpretation Sinus Bradycardia Electronically signed on 06/03/2018 at 12:04 by Lul Chapman [employer] Version [id number] 06/03/18 1207 Date Lul Chapman MD CC: Aníbal Tapia MD Date Dictated: 06/03/18 0957 Date Transcribed: 06/03/1857 Telephone Appointment Clerk: PM Signed 12 LEAD ELECTROCARDIOGRAM Observed: 05/10/2018 Status: F Source: [place] 1:41 PM [facility] Cardiovascular Services [address] [place] [address] 12 Lead EKG 05/08/18 1225 MR#: [id number] Acct: [id number] Name: CASEY NICHOLS Rep #: [id number] : 1960 57 From: Terry Villalta MD [...] ECG Confirmed by RAN SUMNER, TERRY ([id number]), online content editor ISRAEL BARAJAS ([id number]) on 05/10/2018 1:41:03 PM Referred By: [place] Confirmed By:TERRY VILLALTA MD 05/10/18 1341 Date [place] Villalta MD CC: Aníbal Tapia MD; [place] MD Signed DISCHARGE INSTRUCTION Observed: 05/08/2018 Status: F Source: [place] 1:27 PM [facility] Medical Records Department [address] [place] [address] Discharge Instruction 05/08/18 1326 MR#: [id number] Acct: [id number] Name: CASEY NICHOLS Rep #: [id number] : 1960 57 From: [place] Ernst MD [...] your Primary Care Provider. Call [facility] ([phone]) or report to the closest Emergency Room. Call 911 if necessary. 05/08/18 1327 <Electronically signed by [place] MD> Date [place] MD Cosigner Signature (If Indicated): Date CC: Aníbal Tapia MD EMERGENCY DEPARTMENT Observed: 05/08/2018 Status: F Source: [place] SUMMARY 1:26 PM [facility] REPOSITORY [facility] Medical Records Department [address] [place] [address] Emergency Department Summary 05/08/18 1223 MR#: [id number] Acct: [id number] Name: CASEY NICHOLS Rep #: [id number] : 1960 57 From: [place] Ernst MD [...] Impression: PVCs This note was generated with [employer] software. It may contain incorrect words, spelling, [...] your Primary Care Provider. Call [facility] ([phone]) or report to the closest Emergency Room. Call 911 if necessary. 05/08/18 1326 <Electronically signed by [place] MD> Date [place] MD Cosigner Signature (If Indicated): Date CC: Aníbal Tapia MD CBC W/DIFF, AUTOMATED Collected: 05/08/2018 Status: F Source: [place] 12:31 PM [facility] REPOSITORY TYPE CODE TESTS RESULT OUT OF [...] Lymph 1.91 Performed By: #### L100.0100 #### [facility] [address] [place], [place], [address] BASIC METABOLIC Collected: 05/08/2018 Status: F Source: [place] PROFILE (BMP) 12:31 PM [facility] REPOSITORY TYPE CODE TESTS RESULT OUT OF [...] 8 Performed By: #### L500.2500, L501.4010 #### [facility] [address] [place], [address] TROPONIN-I Collected: 05/08/2018 Status: F Source: [place] 12:31 PM [facility] REPOSITORY TYPE CODE TESTS RESULT OUT OF RANGE REFERENCE UNITS LAB L501.4010 <0.045 ng/mL Normal < 0.015 TROPONIN-I Result Comment: TROPONIN-I EXPECTED VALUES <0.045 Negative 0.045 - 0.590 Consistent with Cardiac Damage > OR = 0.600 Critical Value Not every elevated troponin is indicative of DC. These values should be used with clinical judgement in examining the patient's clinical picture for diagnosis. To establish a diagnosis of DC versus myocardial injury, there must be a demonstrated rise and/or fall in the troponin values, in addition to ischemic symptoms, EKG changes, new regional wall motion abnormality, and/or angiographical evidence. PLEASE NOTE: REFERENCE RANGES EDITED 17 Performed By: #### L500.2500, L501.4010 #### [facility] [address] [place], [address] COMPREHENSIVE METABOLIC Collected: 01/30/2018 Status: F [facility] 7:53 AM [facility] REPOSITORY TYPE CODE TESTS RESULT OUT OF [...] 8 Performed By: #### L500.4050, L500.4100 #### [facility] [address] [place], [address] LIPID PROFILE Collected: 01/30/2018 Status: F Source: [place] 7:53 AM [facility] REPOSITORY TYPE CODE TESTS RESULT OUT OF [...] 14 Performed By: #### L500.4050, L500.4100 #### [facility] [address] [place], [address] HEMOGLOBIN A1C Collected: 01/30/2018 Status: F Source: [place] 7:53 AM [facility] REPOSITORY TYPE CODE TESTS RESULT OUT OF RANGE REFERENCE UNITS LAB L501.9985 4.2-6.3 % Normal HGB A1C 5.5 Performed By: #### L501.9985 #### [facility] [address] [place], [address] CBC W/DIFF, AUTOMATED Collected: 09/28/2017 Status: F Source: [place] 5:58 AM [facility] REPOSITORY Order Comment: Order Date: 09/23/17 Order [...] By: #### L100.0100, L500.4050, L500.4100, L501.9985 #### [facility] [address] [place], [address] COMPREHENSIVE METABOLIC Collected: 09/28/2017 Status: F Source: [facility] 5:58 AM [facility] REPOSITORY Order Comment: Order Date: 09/23/17 Order Info: 0786-1 - CMP Order Info: 64572-4 - LIPID TYPE CODE TESTS RESULT OUT [...] By: #### L100.0100, L500.4050, L500.4100, L501.9985 #### [facility] [address] [facility] [place], [place], [address] LIPID PROFILE Collected: 09/28/2017 Status: F Source: [place] 5:58 AM [facility] REPOSITORY Order Comment: Order Date: 09/23/17 Order Info: 0786-1 - CMP Order Info: 52398-5 - LIPID TYPE CODE TESTS RESULT OUT [...] By: #### L100.0100, L500.4050, L500.4100, L501.9985 #### [facility] [address] [place], [place], [address] HEMOGLOBIN A1C Collected: 09/28/2017 Status: F Source: [place] 5:58 AM [facility] REPOSITORY Order Comment: Order Date: 09/23/17 Order Info: 4548-4 - A1C TYPE CODE TESTS RESULT OUT OF RANGE REFERENCE UNITS LAB L501.9985 4.2-6.3 % Normal HGB A1C 5.6 Performed By: #### L100.0100, L500.4050, L500.4100, L501.9985 #### [facility] [address] [place], [address] ALLERGIES ALLERGIES DATE TYPE / CODE NAME / CODE REACTION SEVERITY SOURCE 06/03/2018 Drug aspirin/[id number] Rash Unknown [facility] Allergy/416 87(RXNORM) [facility] 788187(SNOM Repository ED CT) 06/03/2018 Drug banana/[id number] Nausea/Vom/Diar Unknown [facility] Allergy/416 7(RXNORM) [facility] 836427(SNOM Repository ED CT) 06/03/2018 Drug poppyseed cramping SV [facility] Allergy/416 oil/[id number]( Hospital 149873(SNOM XNORM) Repository ED CT) ENCOUNTERS ENCOUNTERS ADMIT/DISCHARGE ACCOUNT ADMITTING ENCOUNTER LOCATION SOURCE NUMBER CLASS 06/22/2018 [id number] Ambulatory BMSBuilding:[place] 2 [place].CF.[facility] Repository 06/22/2018 [id number] Ambulatory [place] 6 [facility] ing:CVS Repository 06/22/2018 [id number] Ambulatory [place] 8 [facility] ing:MFPLAB Repository 06/09/2018 [id number] Ambulatory [place] 0 [facility] ing:LABSPEC Repository 06/07/2018 [id number] Ambulatory [place] 5 [facility] ing:LAB Repository 06/03/2018/ [id number] Ambulatory BMSBuilding:B [place] 5 MS.[facility] Repository 05/26/2018 [id number] Ambulatory BMSBuilding:B [place] 1 [place].[facility] Repository 05/08/2018/ [id number] Emergency [place] 4 [facility] ing:ED Repository 01/30/2018 [id number] Ambulatory [place] 3 [facility] ing:LAB Repository 09/28/2017 [id number] Ambulatory [place] 4 [facility] ing:LAB Repository PAYERS PAYERS ENCOUNTER GUARANTOR PAYER SUBSCRIBER SOURCE 06/22/2018 CASEY Killian [id number] Primary CASEY A [place] Insurance:ANTHEMPolic BYLERDOB: [facility] angelica MOE y Number: [id number] Hospital [address]Rud: 330 [id number] Repository [phone] () Date:1283-55-61IC [address] [place] [address] 32925SQ: 06/22/2018 Secondary CASEY A [place] Insurance:[facility] PACKAGE BYLERDOB: [facility] Number: [id number] Hospital [id number] Repository Date:2018-06-03 06/22/2018 Tertiary NOT GIVENUNK [place] Insurance:SELF PAY [facility] Number: Effective Repository Date:2018-06-22 06/22/2018 CASEY A [id number] Primary CASEY A [place] Insurance:ANTHEMPolic BYLERDOB: [facility] angelica MOE y Number: [id number] Hospital 744[address]Rzr: (309) [id number] Repository [phone] () Date:6237-85-12RV [address] [place] [address] 67541UM: 06/22/2018 Secondary CASEY A [place] Insurance:[facility] PACKAGE BYLERDOB: [facility] Number: [id number] Hospital [id number] Repository Date:2018-06-03 06/22/2018 Tertiary NOT GIVENUNK [place] Insurance:SELF PAY [facility] Number: Effective Repository Date:2018-06-03 06/22/2018 CASEY A [id number] Primary CASEY A [place] Insurance:ANTHEMPolic BYLERDOB: [facility] angelica MOE y Number: [id number] Hospital 96[address]Voy: (417) [id number] Repository [phone] () Date:5576-55-40BG [address] [place] [address] 59436UX: 06/22/2018 Secondary NOT GIVENUNK [place] Insurance:SELF PAY [facility] Number: Effective Repository Date:2018-06-22 06/09/2018 CASEY [place] Primary CASEY A [place] Insurance:ANTHEMPolic BYLERDOB: [facility] ABHIangelica y Number: [id number] Hospital 44563Xvi: (330) [id number] Repository [phone] () Date:6536-55-79NH [address] [place] [address] 31929ML: 06/09/2018 Secondary NOT GIVENUNK [place] Insurance:SELF PAY [facility] Number: Effective Repository Date:2018-06-09 06/07/2018 CASEY Maria D [id number] Primary CASEY A [place] Insurance:ANTHEMPolic BYLERDOB: [facility] ABHI angelica y Number: [id number] Hospital 90874Nbt: (330 [id number] Repository [phone] () Date:7403-96-57IO [address] [place] [address] 18496QA: 06/07/2018 Secondary NOT GIVENUNK [place] Insurance:SELF PAY [facility] Number: Effective Repository Date:2018-06-07 06/03/2018 CASEY Maria D [id number] Primary CASEY A [place] Insurance:ANTHEMPolic BYLERDOB: [facility] ABHIangelica y Number: [id number] Hospital 11095Fvd: (330 [id number] Repository [phone] () Date:3307-07-26PK [address] [place] [address] 38606VQ: 06/03/2018 Secondary NOT GIVENUNK [place] Insurance:SELF PAY [facility] Number: Effective Repository Date:2018-06-03 05/26/2018 CASEY Maria D [id number] Primary CASEY A [place] Insurance:ANTHEMPolic BYLERDOB: [facility] angelica MOE y Number: [id number] Hospital 86702Ete: (330 [id number] Repository [phone] () Date:2035-84-91EP [address] [place] [address] 48665UO: 05/26/2018 Secondary NOT GIVENUNK [place] Insurance:SELF PAY [facility] Number: Effective Repository Date:2018-05-26 05/08/2018 CASEY NICHOLS239 Primary CASEY A [place] Insurance:ANTHEMPolic BYLERDOB: [facility] MOE y Number: [id number] Hospital 195[address]Oig: (330) [id number] Repository [phone] () Date:5845-08-28JP [address] [place] [address] 52990HY: 05/08/2018 Secondary NOT GIVENUNK [place] Insurance:SELF PAY [facility] Number: Effective Repository Date:2018-05-08 01/30/2018 CASEY Maria D [id number] Primary CASEY A [place] Insurance:ANTHEMPolic BYLERDOB: [facility] angelica MOE y Number: [id number] Hospital 21228Tat: (330) [id number] Repository [phone] () Date:0417-29-13TJ [address] [place] [address] 66650FC: 01/30/2018 Secondary NOT GIVENUNK [place] Insurance:SELF PAY [facility] Number: Effective Repository Date:2018-01-29 09/28/2017 CASEY A [id number] Primary CASYE A [place] Insurance:ANTHEMPolic BYLERDOB: [facility] angelica MOE y Number: [id number] Hospital 462[address]Ief: (330) [id number] Repository [phone] () Date:1976-12-07EQ [address] [place] [address] 19255NX: 09/28/2017 Secondary NOT GIVENUNK [place] Insurance:SELF PAY [facility] Number: Effective Repository Date:2017-09-28
== END ==
PROVIDERS: Family Provider Family Medicine; PCP Family Medicine; Referring Provider Internal Medicine Cardiovascular Disease; Visit Provider Internal Medicine Cardiovascular Disease
DX: I49.3 Ventricular premature depolarization (principal)
CPT/HCPCS: 93017; 93225; 93226; 93306

== ENCOUNTER → 2018-10-05 06:02 | Outpatient (CLI) | payer OTHER, SELFPAY ==
[2018-06-03 10:14] VITALS: BMI 29.5
[2018-10-05 07:07] LABS: Absolute Lymphocyte Count 1.66 X10^3/ul (0.83-4.51); Basophil# 0.04 X10^3/uL; Basophil% 0.8 % (0-1); Eosinophil# 0.49 X10^3/uL; Eosinophils% 10.4 % (0-5); Hematocrit 42.7 % (40-54); Hemoglobin 14.9 g/dl (13.0-16.5); Lymphocyte # 1.66 X10^3/ul (4.0); Lymphocyte % 35.1 % (19-41); Mean Corp Hgb Conc 34.9 g/gl (32-36); Mean Corpuscular Hgb 31.4 pg (27.0-32.0); Mean Corpuscular Volume 90.1 fL (80-94); Mean Platelet Vol. 9.5 fl (6.2-12.0); Monocyte% 10.6 % (0-10); Neutrophil # 2.03 X10^3/uL (2.7-7.7); Neutrophil % 42.9 % (47-70); POSITIVE COUNT NO; POSITIVE DIFFERENTIAL NO; POSITIVE MORPHOLOGY NO; Platelet Count 210 K/mm3 (150-450); RBC Distribution Width CV 12.4 % (11.6-14.6); RBC Distribution Width SD 40.4 fl (35.1-43.9); Red Blood Count 4.74 M/mm3 (4.6-6.2); White Blood Count 4.7 K/mm3 (4.4-11.0)
[2018-10-05 07:30] LABS: ALB/GLOB Ratio 0.8 RATIO (0.9-2.4); AST(SGOT) 21 U/L (15-37); Alanine Aminotransfer ALT/SGPT 30 U/L (16-61); Albumin, Serum 3.7 g/dL (3.2-5.0); Alkaline Phosphatase 85 U/L (45-117); Anion Gap 7 (5-15); BUN 18 mg/dL (7-18); BUN/Creat Ratio 20.4 RATIO (10-20); Calcium,Total 9.1 mg/dL (8.5-10.1); Chloride 103 mmol/L (98-107); Cholesterol 214 mg/dL (200); Creatinine, Serum 0.88 mg/dL (0.70-1.30); EST Glomerular Filtration Rate 94 mL/min (>60); Est Glom Filt Rate - Afr Amer 114 mL/min (>60); Globulin 4.4 g/dL (2.2-4.2); Glucose 125 mg/dL (74-106); High Density Lipoprotein 45 mg/dL; Magnesium 2.2 mg/dL (1.6-2.6); Potassium 4.2 mmol/L (3.5-5.1); Protein, Total 8.1 g/dL (6.4-8.2); Sodium Level 139 mmol/L (136-145); Triglycerides 239 mg/dL; Very Low Density Lipoprotein 48 mg/dL (5-40)
[2018-10-05 08:19] LABS: Hemoglobin A1c 5.8 % (4.2-6.3)
== END ==
PROVIDERS: Family Provider Family Medicine; PCP Family Medicine; Referring Provider Family Medicine; Visit Provider Family Medicine
DX: I49.3 Ventricular premature depolarization (principal); E11.9 Type 2 diabetes mellitus without complications; E78.5 Hyperlipidemia, unspecified
CPT/HCPCS: 36415; 80053; 80061; 83036; 83735; 85025

== ENCOUNTER → 2019-04-12 06:13 | Outpatient (CLI) | payer OTHER, SELFPAY ==
[2019-04-12 07:22] LABS: Microalbumin:Creatinine Ratio 4.4 mg/g CRE (<30 mg/g CRE)
[2019-04-12 07:24] LABS: ALB/GLOB Ratio 0.8 RATIO (0.9-2.4); AST(SGOT) 31 U/L (15-37); Alanine Aminotransfer ALT/SGPT 44 U/L (16-61); Albumin, Serum 3.6 g/dL (3.2-5.0); Alkaline Phosphatase 65 U/L (45-117); Anion Gap 9 (5-15); BUN 17 mg/dL (7-18); Calcium,Total 8.8 mg/dL (8.5-10.1); Chloride 103 mmol/L (98-107); Cholesterol 251 mg/dL (200); EST Glomerular Filtration Rate 92 mL/min (>60); Est Glom Filt Rate - Afr Amer 111 mL/min (>60); Globulin 4.4 g/dL (2.2-4.2); Glucose 153 mg/dL (74-106); High Density Lipoprotein 54 mg/dL; Potassium 3.9 mmol/L (3.5-5.1); Sodium Level 137 mmol/L (136-145); Triglycerides 151 mg/dL; Very Low Density Lipoprotein 30 mg/dL (5-40)
[2019-04-12 07:37] LABS: Hemoglobin A1c 6.1 % (4.2-6.3)
== END ==
PROVIDERS: Family Provider Family Medicine; PCP Family Medicine; Referring Provider Family Medicine; Visit Provider Family Medicine
DX: E11.9 Type 2 diabetes mellitus without complications (principal); E78.5 Hyperlipidemia, unspecified
CPT/HCPCS: 36415; 80053; 80061; 82043; 82570; 83036

== ENCOUNTER → 2019-07-12 06:28 | Outpatient (CLI) | payer OTHER, SELFPAY ==
[2019-06-16 15:57] VITALS: BMI 32.9
[2019-07-12 07:41] LABS: Albumin, Serum 3.9 g/dL (3.2-5.0); BUN 16 mg/dL (7-18); BUN/Creat Ratio 17.4 RATIO (10-20); Creatinine, Serum 0.92 mg/dL (0.70-1.30); EST Glomerular Filtration Rate 89 mL/min (>60); Est Glom Filt Rate - Afr Amer 108 mL/min (>60); Glucose 125 mg/dL (74-106)
[2019-07-12 07:42] LABS: AST(SGOT) 35 U/L (15-37); Alanine Aminotransfer ALT/SGPT 58 U/L (16-61); Alkaline Phosphatase 55 U/L (45-117); Anion Gap 6 (5-15); Calcium,Total 8.9 mg/dL (8.5-10.1); Chloride 104 mmol/L (98-107); Cholesterol 183 mg/dL (200); Globulin 4.1 g/dL (2.2-4.2); High Density Lipoprotein 50 mg/dL; Potassium 3.8 mmol/L (3.5-5.1); Sodium Level 138 mmol/L (136-145); Triglycerides 186 mg/dL; Very Low Density Lipoprotein 37 mg/dL (5-40)
[2019-07-12 08:02] LABS: Hemoglobin A1c 6.5 % (4.2-6.3)
== END ==
PROVIDERS: PCP Family Medicine; Referring Provider Family Medicine; Visit Provider Family Medicine
DX: E11.9 Type 2 diabetes mellitus without complications (principal); E78.5 Hyperlipidemia, unspecified
CPT/HCPCS: 36415; 80053; 80061; 83036

== ENCOUNTER → 2019-11-08 11:52 | Outpatient (CLI) | payer OTHER, SELFPAY ==
[2019-06-16 15:57] VITALS: BMI 32.9
[2019-11-08 15:12] LABS: Absolute Lymphocyte Count 1.28 X10^3/uL (0.83-4.51); Absolute Neutrophil Count 1.9 X10^3/uL (2.0-7.7); Basophil# 0.08 X10^3/uL; Basophil% 1.9 % (0-1); Eosinophil# 0.42 X10^3/uL; Eosinophils% 9.9 % (0-5); Hematocrit 43.3 % (40-54); Hemoglobin 14.6 g/dL (13.0-16.5); Lymphocyte # 1.28 X10^3/ul (4.0); Lymphocyte % 30.1 % (19-41); Mean Corp Hgb Conc 33.7 g/dL (32-36); Mean Corpuscular Hgb 31.3 pg (27.0-32.0); Mean Corpuscular Volume 92.7 fL (80-94); Monocyte# 0.53 X10^3/uL; Monocyte% 12.5 % (0-10); NRBC Flagged by Analyzer 0 % (0-5); Neutrophil # 1.93 X10^3/uL (2.7-7.7); Neutrophil % 45.4 % (47-70); Platelet Count 210 K/mm3 (150-450); RBC Distribution Width CV 12.2 % (11.6-14.6); RBC Distribution Width SD 41.6 fl (35.1-43.9); Red Blood Count 4.67 M/mm3 (4.6-6.2); White Blood Count 4.3 K/mm3 (4.4-11.0)
[2019-11-08 15:51] LABS: AST(SGOT) 33 U/L (15-37); Alanine Aminotransfer ALT/SGPT 58 U/L (16-61); Alkaline Phosphatase 61 U/L (45-117); Anion Gap 6 (5-15); BUN 14 mg/dL (7-18); BUN/Creat Ratio 15.2 RATIO (10-20); Calcium,Total 9.4 mg/dL (8.5-10.1); Chloride 104 mmol/L (98-107); Cholesterol 273 mg/dL (200); Creatinine, Serum 0.92 mg/dL (0.70-1.30); EST Glomerular Filtration Rate 89 mL/min (>60); Est Glom Filt Rate - Afr Amer 108 mL/min (>60); Globulin 4.2 g/dL (2.2-4.2); Glucose 143 mg/dL (74-106); High Density Lipoprotein 52 mg/dL; Magnesium 2.3 mg/dL (1.6-2.6); Potassium 4.2 mmol/L (3.5-5.1); Protein, Total 8.2 g/dL (6.4-8.2); Sodium Level 137 mmol/L (136-145); Triglycerides 75 mg/dL; Very Low Density Lipoprotein 15 mg/dL (5-40)
[2019-11-08 16:16] LABS: Hemoglobin A1c 6.4 % (3.8-5.6)
== END ==
PROVIDERS: PCP Family Medicine; Referring Provider Family Medicine; Visit Provider Family Medicine
DX: I49.3 Ventricular premature depolarization (principal); E78.5 Hyperlipidemia, unspecified; E11.9 Type 2 diabetes mellitus without complications
CPT/HCPCS: 36415; 80053; 80061; 83036; 83735; 85025

== ENCOUNTER 2019-11-16 08:30 | Outpatient (RCR) | payer OTHER, SELFPAY ==
[2019-06-16 15:57] VITALS: BMI 32.9
== END 2019-11-16 23:59 | disposition home or self-care (01) ==
LOC: DC 08:30
PROVIDERS: PCP Family Medicine; Visit Provider Family Medicine
DX: Z71.3 Dietary counseling and surveillance (principal); E11.9 Type 2 diabetes mellitus without complications; E66.3 Overweight; Z68.32 Body mass index [BMI] 32.0-32.9, adult
CPT/HCPCS: 97802; G0108

== ENCOUNTER → 2020-02-09 07:19 | Outpatient (CLI) | payer OTHER, SELFPAY ==
[2019-12-27 14:29] VITALS: BMI 32.4
[2020-02-09 10:12] LABS: Hemoglobin A1c 6.5 % (3.8-5.6)
[2020-02-09 10:14] LABS: ALB/GLOB Ratio 0.9 RATIO (0.9-2.4); AST(SGOT) 34 U/L (15-37); Alanine Aminotransfer ALT/SGPT 53 U/L (16-61); Albumin, Serum 3.7 g/dL (3.2-5.0); Alkaline Phosphatase 58 U/L (45-117); Anion Gap 7 (5-15); BUN 11 mg/dL (7-18); BUN/Creat Ratio 12.6 RATIO (10-20); Calcium,Total 8.7 mg/dL (8.5-10.1); Chloride 104 mmol/L (98-107); Cholesterol 184 mg/dL (200); Creatinine, Serum 0.87 mg/dL (0.70-1.30); EST Glomerular Filtration Rate 95 mL/min (>60); Est Glom Filt Rate - Afr Amer 115 mL/min (>60); Globulin 4.2 g/dL (2.2-4.2); Glucose 158 mg/dL (74-106); High Density Lipoprotein 49 mg/dL; Protein, Total 7.9 g/dL (6.4-8.2); Sodium Level 138 mmol/L (136-145); Triglycerides 205 mg/dL; Very Low Density Lipoprotein 41 mg/dL (5-40)
[2020-02-09 10:19] LABS: Microalbumin,Random Urine 5.2 mg/L (NO RANGE EST.); Microalbumin:Creatinine Ratio 5.2 mg/g CRE (<30 mg/g CRE)
== END ==
PROVIDERS: PCP Family Medicine; Referring Provider Family Medicine; Visit Provider Family Medicine
DX: E78.5 Hyperlipidemia, unspecified (principal); E11.9 Type 2 diabetes mellitus without complications
CPT/HCPCS: 36415; 80053; 80061; 82043; 82570; 83036

== ENCOUNTER → 2020-04-16 16:26 | Outpatient (CLI) | payer OTHER, SELFPAY ==
[2019-12-27 14:29] VITALS: BMI 32.4
== END ==
PROVIDERS: PCP Family Medicine; Visit Provider Family Medicine
DX: U07.1 COVID-19 (principal)
CPT/HCPCS: 87635; U0003

== ENCOUNTER → 2020-05-30 07:06 | Outpatient (CLI) | payer OTHER, SELFPAY ==
[2019-12-27 14:29] VITALS: BMI 32.4
[2020-05-30 10:37] LABS: ALB/GLOB Ratio 0.9 RATIO (0.9-2.4); AST(SGOT) 17 U/L (15-37); Alanine Aminotransfer ALT/SGPT 36 U/L (16-61); Albumin, Serum 3.6 g/dL (3.2-5.0); Alkaline Phosphatase 54 U/L (45-117); Anion Gap 4 (5-15); BUN 14 mg/dL (7-18); BUN/Creat Ratio 16.6 RATIO (10-20); Calcium,Total 8.9 mg/dL (8.5-10.1); Chloride 108 mmol/L (98-107); Cholesterol 201 mg/dL (200); Creatinine, Serum 0.84 mg/dL (0.70-1.30); EST Glomerular Filtration Rate 98 mL/min (>60); Est Glom Filt Rate - Afr Amer 119 mL/min (>60); Globulin 4.1 g/dL (2.2-4.2); Glucose 146 mg/dL (74-106); High Density Lipoprotein 58 mg/dL; Magnesium 2.2 mg/dL (1.6-2.6); Potassium 4.1 mmol/L (3.5-5.1); Protein, Total 7.7 g/dL (6.4-8.2); Sodium Level 140 mmol/L (136-145); Triglycerides 81 mg/dL; Very Low Density Lipoprotein 16 mg/dL (5-40)
[2020-05-30 10:46] LABS: Hemoglobin A1c 6.4 % (3.8-5.6)
== END ==
PROVIDERS: PCP Family Medicine; Referring Provider Family Medicine; Visit Provider Family Medicine
DX: E78.5 Hyperlipidemia, unspecified (principal); E11.9 Type 2 diabetes mellitus without complications; I49.3 Ventricular premature depolarization
CPT/HCPCS: 36415; 80053; 80061; 83036; 83735

== ENCOUNTER → 2020-10-01 07:05 | Outpatient (CLI) | payer OTHER, SELFPAY ==
[2020-09-14 10:59] VITALS: BMI 32.3
[2020-10-01 10:19] LABS: Hemoglobin A1c 6.3 % (3.8-5.6); Microalbumin,Random Urine 10.1 mg/L (NO RANGE EST.); Microalbumin:Creatinine Ratio 5.9 mg/g CRE (<30 mg/g CRE)
[2020-10-01 10:30] LABS: ALB/GLOB Ratio 0.9 RATIO (0.9-2.4); AST(SGOT) 30 U/L (15-37); Alanine Aminotransfer ALT/SGPT 47 U/L (16-61); Albumin, Serum 3.9 g/dL (3.2-5.0); Alkaline Phosphatase 64 U/L (45-117); Anion Gap 10 (5-15); BUN 16 mg/dL (7-18); BUN/Creat Ratio 17.9 RATIO (10-20); Calcium,Total 9.1 mg/dL (8.5-10.1); Chloride 102 mmol/L (98-107); Cholesterol 193 mg/dL (200); Creatinine, Serum 0.89 mg/dL (0.70-1.30); EST Glomerular Filtration Rate 92 mL/min (>60); Est Glom Filt Rate - Afr Amer 111 mL/min (>60); Globulin 4.4 g/dL (2.2-4.2); Glucose 148 mg/dL (74-106); High Density Lipoprotein 53 mg/dL; Potassium 3.9 mmol/L (3.5-5.1); Protein, Total 8.3 g/dL (6.4-8.2); Sodium Level 138 mmol/L (136-145); Triglycerides 156 mg/dL; Very Low Density Lipoprotein 31 mg/dL (5-40)
== END ==
PROVIDERS: PCP Family Medicine; Referring Provider Family Medicine; Visit Provider Family Medicine
DX: E78.5 Hyperlipidemia, unspecified (principal); E11.9 Type 2 diabetes mellitus without complications
CPT/HCPCS: 36415; 80053; 80061; 82043; 82570; 83036

== ENCOUNTER → 2020-10-03 16:15 | Outpatient (CLI) | payer OTHER, SELFPAY ==
[2020-09-14 10:59] VITALS: BMI 32.3
--- NOTE | 2020-10-03 16:17 | RAD_ITS ---
STUDY: X-RAY - PELVIS AND BILATERAL HIPS REASON FOR EXAM: Bilateral hip pain, greater on the left. TECHNIQUE: AP view of the pelvis.? 2 views of the right hip, and 2 views of the left hip were obtained. COMPARISON: None. FINDINGS: There are small pelvic phleboliths. Normal bilateral iliac wings, sacroiliac joints and visualized sacrum. Normal bilateral superior and inferior pubic rami. Normal pubic symphysis. Normal bilateral ischial tuberosities. Normal visualized right femoral head. Normal right acetabulum. There is mild joint space narrowing of the right hip joint. Normal visualized left femoral head. Normal left acetabulum. There is mild to moderate joint space narrowing of the left hip joint. RAD/Hips B/L min 2 views w/ Pelvis IMPRESSION: Bilateral hip arthrosis. Electronically Signed: Wilberto Sandy MD at 12:24 EDT Tel , Service support ,
== END ==
PROVIDERS: PCP Family Medicine; Referring Provider Family Medicine; Visit Provider Family Medicine
DX: M25.551 Pain in right hip (principal); M25.552 Pain in left hip
CPT/HCPCS: 73521

== ENCOUNTER → 2022-04-08 | Outpatient (CLI) | payer OTHER, SELFPAY ==
[2022-04-08 07:28] LABS: Absolute Lymphocyte Count 1.31 X10^3/uL (0.83-4.51); Basophil# 0.07 X10^3/uL; Basophil% 1.6 % (0-1); Eosinophil# 0.53 X10^3/uL; Eosinophils% 11.8 % (0-5); Hematocrit 41.2 % (40-54); Hemoglobin 14.2 g/dL (13.0-16.5); Lymphocyte # 1.31 X10^3/ul (0.83-4.51); Lymphocyte % 29.1 % (19-41); Mean Corp Hgb Conc 34.5 g/dL (32-36); Mean Corpuscular Hgb 31.7 pg (27.0-32.0); Mean Platelet Vol. 10.2 fl (6.2-12.0); Monocyte# 0.57 X10^3/uL; Monocyte% 12.7 % (0-10); NRBC Flagged by Analyzer 0 % (0-5); Neutrophil # 2.01 X10^3/uL (2.7-7.7); Neutrophil % 44.6 % (47-70); Platelet Count 197 K/mm3 (150-450); RBC Distribution Width CV 11.9 % (11.6-14.6); RBC Distribution Width SD 39.9 fl (35.1-43.9); Red Blood Count 4.48 M/mm3 (4.6-6.2); White Blood Count 4.5 K/mm3 (4.4-11.0)
[2022-04-08 08:14] LABS: Hemoglobin A1c 8.8 % (3.8-5.6)
[2022-04-08 08:17] LABS: ALB/GLOB Ratio 0.9 RATIO (0.9-2.4); AST(SGOT) 27 U/L (15-37); Alanine Aminotransfer ALT/SGPT 47 U/L (16-61); Albumin, Serum 3.6 g/dL (3.2-5.0); Alkaline Phosphatase 57 U/L (45-117); Anion Gap 6 (5-15); BUN 16 mg/dL (7-18); BUN/Creat Ratio 17.4 RATIO (10-20); Chloride 102 mmol/L (98-107); Cholesterol 202 mg/dL (200); Creatinine, Serum 0.92 mg/dL (0.70-1.30); EST Glomerular Filtration Rate 89 mL/min (>60); Est Glom Filt Rate - Afr Amer 107 mL/min (>60); Globulin 3.9 g/dL (2.2-4.2); Glucose 226 mg/dL (74-106); High Density Lipoprotein 45 mg/dL; Potassium 3.9 mmol/L (3.5-5.1); Protein, Total 7.5 g/dL (6.4-8.2); Sodium Level 137 mmol/L (136-145); Triglycerides 251 mg/dL; Very Low Density Lipoprotein 50 mg/dL (5-40)
== END | disposition home or self-care (01) ==
LOC: LAB 05:53
PROVIDERS: PCP Family Medicine; Referring Provider Family Medicine; Visit Provider Family Medicine
DX: E11.9 Type 2 diabetes mellitus without complications (principal)
CPT/HCPCS: 36415; 80053; 80061; 82043; 82570; 83036; 85025

== ENCOUNTER → 2022-07-09 | Outpatient (CLI) | payer OTHER, SELFPAY ==
[2022-07-09 07:39] LABS: Absolute Lymphocyte Count 1.53 X10^3/uL (0.83-4.51); Absolute Neutrophil Count 2.8 X10^3/uL (2.0-7.7); Basophil# 0.08 X10^3/uL; Basophil% 1.5 % (0-1); Eosinophil# 0.34 X10^3/uL; Eosinophils% 6.4 % (0-5); Hematocrit 42.5 % (40-54); Hemoglobin 14.9 g/dL (13.0-16.5); Lymphocyte # 1.53 X10^3/ul (0.83-4.51); Lymphocyte % 28.8 % (19-41); Mean Corp Hgb Conc 35.1 g/dL (32-36); Mean Corpuscular Hgb 31.5 pg (27.0-32.0); Mean Corpuscular Volume 89.9 fL (80-94); Mean Platelet Vol. 9.7 fl (6.2-12.0); Monocyte# 0.58 X10^3/uL; Monocyte% 10.9 % (0-10); NRBC Flagged by Analyzer 0 % (0-5); Neutrophil # 2.78 X10^3/uL (2.7-7.7); Neutrophil % 52.2 % (47-70); Platelet Count 201 K/mm3 (150-450); RBC Distribution Width CV 11.7 % (11.6-14.6); RBC Distribution Width SD 37.9 fl (35.1-43.9); Red Blood Count 4.73 M/mm3 (4.6-6.2); White Blood Count 5.3 K/mm3 (4.4-11.0)
[2022-07-09 07:52] LABS: Microalbumin,Random Urine 5.8 mg/L (NO RANGE EST.); Microalbumin:Creatinine Ratio 5.8 mg/g CRE (<30 mg/g CRE)
[2022-07-09 08:03] LABS: AST(SGOT) 25 U/L (15-37); Alanine Aminotransfer ALT/SGPT 41 U/L (16-61); Alkaline Phosphatase 49 U/L (45-117); Anion Gap 9 (5-15); BUN 11 mg/dL (7-18); BUN/Creat Ratio 12.9 RATIO (10-20); Calcium,Total 9.5 mg/dL (8.5-10.1); Chloride 103 mmol/L (98-107); Cholesterol 145 mg/dL (200); Creatinine, Serum 0.85 mg/dL (0.70-1.30); EST Glomerular Filtration Rate 96 mL/min (>60); Est Glom Filt Rate - Afr Amer 117 mL/min (>60); Globulin 3.9 g/dL (2.2-4.2); Glucose 131 mg/dL (74-106); High Density Lipoprotein 61 mg/dL; Magnesium 2.1 mg/dL (1.6-2.6); Potassium 3.8 mmol/L (3.5-5.1); Protein, Total 7.9 g/dL (6.4-8.2); Sodium Level 138 mmol/L (136-145); Triglycerides 96 mg/dL; Very Low Density Lipoprotein 19 mg/dL (5-40)
[2022-07-09 10:10] LABS: Hemoglobin A1c 6.4 % (3.8-5.6)
== END | disposition home or self-care (01) ==
LOC: LAB 06:00
PROVIDERS: PCP Family Medicine; Referring Provider Family Medicine; Visit Provider Family Medicine
DX: I49.3 Ventricular premature depolarization (principal); E11.69 Type 2 diabetes mellitus with other specified complication
CPT/HCPCS: 36415; 80053; 80061; 82043; 82570; 83036; 83735; 85025

== ENCOUNTER → 2022-10-29 | Outpatient (CLI) | payer OTHER, SELFPAY ==
[2022-10-29 12:53] LABS: Absolute Lymphocyte Count 1.02 X10^3/uL (0.83-4.51); Absolute Neutrophil Count 6.7 X10^3/uL (2.0-7.7); Basophil# 0.06 X10^3/uL; Basophil% 0.7 % (0-1); Eosinophil# 0.04 X10^3/uL; Eosinophils% 0.5 % (0-5); Hematocrit 44.6 % (40-54); Lymphocyte # 1.02 X10^3/ul (0.83-4.51); Lymphocyte % 11.8 % (19-41); Mean Corp Hgb Conc 33.6 g/dL (32-36); Mean Corpuscular Hgb 31.5 pg (27.0-32.0); Mean Corpuscular Volume 93.7 fL (80-94); Mean Platelet Vol. 10.4 fl (6.2-12.0); Monocyte# 0.77 X10^3/uL; Monocyte% 8.9 % (0-10); NRBC Flagged by Analyzer 0 % (0-5); Neutrophil # 6.71 X10^3/uL (2.7-7.7); Neutrophil % 77.9 % (47-70); Platelet Count 179 K/mm3 (150-450); RBC Distribution Width CV 12.1 % (11.6-14.6); RBC Distribution Width SD 41.9 fl (35.1-43.9); Red Blood Count 4.76 M/mm3 (4.6-6.2); White Blood Count 8.6 K/mm3 (4.4-11.0)
[2022-10-29 13:11] LABS: Hemoglobin A1c 6.3 % (3.8-5.6)
[2022-10-29 13:16] LABS: Microalbumin:Creatinine Ratio 507.5 mg/g CRE (<30 mg/g CRE)
[2022-10-29 13:32] LABS: ALB/GLOB Ratio 0.8 RATIO (0.9-2.4); AST(SGOT) 16 U/L (15-37); Alanine Aminotransfer ALT/SGPT 20 U/L (16-61); Albumin, Serum 3.8 g/dL (3.2-5.0); Alkaline Phosphatase 50 U/L (45-117); Anion Gap 8 (5-15); BUN 12 mg/dL (7-18); BUN/Creat Ratio 12.9 RATIO (10-20); Calcium,Total 9.9 mg/dL (8.5-10.1); Chloride 98 mmol/L (98-107); Cholesterol 187 mg/dL (200); Creatinine, Serum 0.93 mg/dL (0.70-1.30); EST Glomerular Filtration Rate 87 mL/min (>60); Est Glom Filt Rate - Afr Amer 105 mL/min (>60); Globulin 4.6 g/dL (2.2-4.2); Glucose 157 mg/dL (74-106); High Density Lipoprotein 73 mg/dL; Magnesium 2.5 mg/dL (1.6-2.6); Potassium 4.1 mmol/L (3.5-5.1); Protein, Total 8.4 g/dL (6.4-8.2); Sodium Level 134 mmol/L (136-145); Triglycerides 88 mg/dL; Very Low Density Lipoprotein 18 mg/dL (5-40)
== END | disposition home or self-care (01) ==
PROVIDERS: PCP Family Medicine; Referring Provider Family Medicine; Visit Provider Family Medicine
DX: I49.3 Ventricular premature depolarization (principal); E11.9 Type 2 diabetes mellitus without complications
CPT/HCPCS: 36415; 80053; 80061; 82043; 82570; 83036; 83735; 85025

== ENCOUNTER → 2022-11-06 | Outpatient (CLI) | payer OTHER, SELFPAY ==
[2022-11-06 10:38] LABS: Microalbumin,Random Urine 8.9 mg/L (NO RANGE EST.); Microalbumin:Creatinine Ratio 9.6 mg/g CRE (<30 mg/g CRE)
[2022-11-06 10:52] LABS: AST(SGOT) 20 U/L (15-37); Alanine Aminotransfer ALT/SGPT 32 U/L (16-61); Albumin, Serum 3.9 g/dL (3.2-5.0); Alkaline Phosphatase 47 U/L (45-117); Bilirubin, Direct 0.13 mg/dL (0.00-0.30); Globulin 3.7 g/dL (2.2-4.2); Protein, Total 7.6 g/dL (6.4-8.2)
== END | disposition home or self-care (01) ==
LOC: MFPLAB 08:19
PROVIDERS: PCP Family Medicine; Visit Provider Family Medicine
DX: E80.6 Other disorders of bilirubin metabolism (principal); E11.9 Type 2 diabetes mellitus without complications
CPT/HCPCS: 36415; 80076; 82043; 82570

== ENCOUNTER → 2023-03-09 | Outpatient (CLI) | payer SELFPAY ==
[2023-03-09 08:05] LABS: Absolute Lymphocyte Count 1.91 X10^3/uL (0.83-4.51); Absolute Neutrophil Count 2.5 X10^3/uL (2.0-7.7); Basophil# 0.06 X10^3/uL; Basophil% 1.1 % (0-1); Eosinophil# 0.49 X10^3/uL; Eosinophils% 8.9 % (0-5); Hematocrit 43.1 % (40-54); Hemoglobin 14.1 g/dL (13.0-16.5); Lymphocyte # 1.91 X10^3/ul (0.83-4.51); Lymphocyte % 34.5 % (19-41); Mean Corp Hgb Conc 32.7 g/dL (32-36); Mean Corpuscular Hgb 30.7 pg (27.0-32.0); Mean Corpuscular Volume 93.7 fL (80-94); Mean Platelet Vol. 9.9 fl (6.2-12.0); Monocyte# 0.53 X10^3/uL; Monocyte% 9.6 % (0-10); NRBC Flagged by Analyzer 0 % (0-5); Neutrophil # 2.52 X10^3/uL (2.7-7.7); Neutrophil % 45.5 % (47-70); Platelet Count 197 K/mm3 (150-450); RBC Distribution Width CV 12.2 % (11.6-14.6); RBC Distribution Width SD 41.6 fl (35.1-43.9); White Blood Count 5.5 K/mm3 (4.4-11.0)
[2023-03-09 08:26] LABS: Hemoglobin A1c 6.2 % (3.8-5.6)
[2023-03-09 08:36] LABS: ALB/GLOB Ratio 0.9 RATIO (0.9-2.4); AST(SGOT) 18 U/L (15-37); Alanine Aminotransfer ALT/SGPT 25 U/L (16-61); Albumin, Serum 3.6 g/dL (3.2-5.0); Alkaline Phosphatase 55 U/L (45-117); Anion Gap 5 (5-15); BUN 14 mg/dL (7-18); BUN/Creat Ratio 15.4 RATIO (10-20); Calcium,Total 9.2 mg/dL (8.5-10.1); Chloride 102 mmol/L (98-107); Cholesterol 174 mg/dL (200); Creatinine, Serum 0.91 mg/dL (0.70-1.30); EST Glomerular Filtration Rate 89 mL/min (>60); Est Glom Filt Rate - Afr Amer 108 mL/min (>60); Globulin 4.2 g/dL (2.2-4.2); Glucose 153 mg/dL (74-106); High Density Lipoprotein 61 mg/dL; Magnesium 2.2 mg/dL (1.6-2.6); Potassium 4.7 mmol/L (3.5-5.1); Protein, Total 7.8 g/dL (6.4-8.2); Sodium Level 139 mmol/L (136-145); Thyroid Stim Hormone (TSH) 3.75 uIU/mL (0.358-3.74); Triglycerides 127 mg/dL; Very Low Density Lipoprotein 25 mg/dL (5-40)
[2023-03-10 16:22] LABS: T4 Free Direct 0.92 ng/dL (0.76-1.46)
== END | disposition home or self-care (01) ==
PROVIDERS: PCP Family Medicine; Referring Provider Family Medicine; Visit Provider Family Medicine
DX: I49.3 Ventricular premature depolarization (principal); E11.9 Type 2 diabetes mellitus without complications
CPT/HCPCS: 36415; 80053; 80061; 83036; 83735; 84439; 84443; 85025

== ENCOUNTER → 2023-09-24 | Outpatient (CLI) | payer SELFPAY ==
[2023-09-24 07:26] LABS: Absolute Lymphocyte Count 1.79 X10^3/uL (0.83-4.51); Absolute Neutrophil Count 1.8 X10^3/uL (2.0-7.7); Basophil# 0.07 X10^3/uL; Basophil% 1.5 % (0-1); Eosinophil# 0.46 X10^3/uL; Eosinophils% 9.6 % (0-5); Hematocrit 40.6 % (40-54); Hemoglobin 13.6 g/dL (13.0-16.5); Lymphocyte # 1.79 X10^3/ul (0.83-4.51); Lymphocyte % 37.4 % (19-41); Mean Corp Hgb Conc 33.5 g/dL (32-36); Mean Corpuscular Hgb 30.4 pg (27.0-32.0); Mean Corpuscular Volume 90.8 fL (80-94); Mean Platelet Vol. 9.9 fl (6.2-12.0); Monocyte# 0.65 X10^3/uL; Monocyte% 13.6 % (0-10); NRBC Flagged by Analyzer 0 % (0-5); Neutrophil % 37.7 % (47-70); Platelet Count 204 K/mm3 (150-450); RBC Distribution Width CV 12.1 % (11.6-14.6); RBC Distribution Width SD 40.3 fl (35.1-43.9); Red Blood Count 4.47 M/mm3 (4.6-6.2); White Blood Count 4.8 K/mm3 (4.4-11.0)
[2023-09-24 08:02] LABS: AST(SGOT) 18 U/L (15-37); Alanine Aminotransfer ALT/SGPT 25 U/L (16-61); Albumin, Serum 3.8 g/dL (3.2-5.0); Alkaline Phosphatase 47 U/L (45-117); Anion Gap 8 (5-15); BUN 18 mg/dL (7-18); BUN/Creat Ratio 20.5 RATIO (10-20); Calcium,Total 9.6 mg/dL (8.5-10.1); Chloride 105 mmol/L (98-107); Cholesterol 156 mg/dL (200); Creatinine, Serum 0.88 mg/dL (0.70-1.30); EST Glomerular Filtration Rate 93 mL/min (>60); Est Glom Filt Rate - Afr Amer 112 mL/min (>60); Globulin 3.9 g/dL (2.2-4.2); Glucose 115 mg/dL (74-106); High Density Lipoprotein 55 mg/dL; Magnesium 2.3 mg/dL (1.6-2.6); Potassium 4.1 mmol/L (3.5-5.1); Protein, Total 7.7 g/dL (6.4-8.2); Sodium Level 141 mmol/L (136-145); T4 Free Direct 0.78 ng/dL (0.76-1.46); Thyroid Stim Hormone (TSH) 2.93 uIU/mL (0.358-3.74); Triglycerides 161 mg/dL; Very Low Density Lipoprotein 32 mg/dL (5-40)
== END | disposition home or self-care (01) ==
LOC: LAB 06:06
PROVIDERS: PCP Family Medicine; Referring Provider Family Medicine; Visit Provider Family Medicine
DX: R79.89 Other specified abnormal findings of blood chemistry (principal); E11.9 Type 2 diabetes mellitus without complications; I49.3 Ventricular premature depolarization
CPT/HCPCS: 36415; 80053; 80061; 83036; 83735; 84439; 84443; 85025

== ENCOUNTER → 2024-08-23 | Outpatient (CLI) | payer MEDICARE, SELFPAY ==
[2024-08-23 07:49] LABS: Absolute Lymphocyte Count 1.89 X10^3/uL (0.83-4.51); Absolute Neutrophil Count 2.1 X10^3/uL (2.0-7.7); Basophil# 0.09 X10^3/uL; Basophil% 1.8 % (0-1); Eosinophil# 0.47 X10^3/uL; Eosinophils% 9.3 % (0-5); Hematocrit 38.4 % (40-54); Lymphocyte # 1.89 X10^3/ul (0.83-4.51); Lymphocyte % 37.2 % (19-41); Mean Corp Hgb Conc 33.9 g/dL (32-36); Mean Corpuscular Hgb 31.3 pg (27.0-32.0); Mean Corpuscular Volume 92.3 fL (80-94); Mean Platelet Vol. 9.5 fl (6.2-12.0); Monocyte# 0.54 X10^3/uL; Monocyte% 10.6 % (0-10); NRBC Flagged by Analyzer 0 % (0-5); Neutrophil # 2.08 X10^3/uL (2.7-7.7); Neutrophil % 40.9 % (47-70); Platelet Count 175 K/mm3 (150-450); RBC Distribution Width CV 12.4 % (11.6-14.6); RBC Distribution Width SD 42.5 fl (35.1-43.9); Red Blood Count 4.16 M/mm3 (4.6-6.2); White Blood Count 5.1 K/mm3 (4.4-11.0)
[2024-08-23 08:21] LABS: ALB/GLOB Ratio 1.3 RATIO (0.9-2.4); AST(SGOT) 26 U/L (<=37); Alanine Aminotransfer ALT/SGPT 29 U/L (<=46); Albumin, Serum 4.1 g/dL (3.4-4.8); Alkaline Phosphatase 55 U/L (40-129); Anion Gap 11 (5-15); BUN 15 mg/dL (4-19); BUN/Creat Ratio 17.7 RATIO (10-20); Calcium,Total 9.3 mg/dL (7.6-11.0); Carbon Dioxide 25.7 mmol/L (21.0-32.0); Chloride 100 mmol/L (98-108); Creatinine, Serum 0.84 mg/dL (0.70-1.20); EST Glomerular Filtration Rate 97 (>60); Globulin 3.1 g/dL (2.2-4.2); Glucose 163 mg/dL (70-99); Potassium 4.3 mmol/L (3.3-5.1); Protein, Total 7.2 g/dL (5.9-8.4); Sodium Level 137 mmol/L (133-145); Total Bilirubin 0.65 mg/dL (0.00-1.30)
[2024-08-23 12:21] LABS: Hemoglobin A1c 6.3 % (<=5.6)
[2024-08-23 15:21] LABS: Cholesterol 173 mg/dL (<=200); High Density Lipoprotein 58 mg/dL; Low Density Lipoprotein Calc. 92 mg/dL; Triglycerides 119 mg/dL; Very Low Density Lipoprotein 24 mg/dL (5-40)
[2024-08-24 13:52] LABS: PSA,Total - Annual Screen 0.86 ng/mL (0.02-4.00)
== END | disposition home or self-care (01) ==
LOC: LAB 07:16
PROVIDERS: PCP Family Medicine; Referring Provider Family Medicine; Visit Provider Family Medicine
DX: I49.3 Ventricular premature depolarization (principal); E11.8 Type 2 diabetes mellitus with unspecified complications; Z12.5 Encounter for screening for malignant neoplasm of prostate
CPT/HCPCS: 36415; 80053; 80061; 83036; 84153; 85025; G0103

== ENCOUNTER → 2025-02-13 | Outpatient (CLI) | payer MEDICARE, SELFPAY ==
--- OUTSIDE RECORDS SUMMARY | 2025-02-13 06:30 | XMS RPT_ITS | CCD ---
Author Organization [facility] Care Team Providers Care Measurement Advisor Name Role Phone Dr. Aníbal Tapia Primary Care Provider Dr. Aníbal Tapia Referring Provider Dr. Lul Chapman Attending Provider [phone] Dr. Aníbal Tapia Primary Care Provider Dr. Aníbal Tapia Referring Provider Jason RHOADES, KATHLEEN Russell Attending Provider Unavailable Primary Care Provider UnavailDr. Aníbal Cee MD Primary Care Provider Dr. Aníbal Tapia MD Attending Provider Dr. Aníbal Tapia MD Referring Provider Aníbal Tapia Attending Unavailable Aníbal Tapia Referring Unavailable Aníbal Tapia Primary Care Unavailable Aníbal Tapia Attending Unavailable Aníbal Tapia Referring Unavailable Aníbal Tapia Primary Care Unavailable Allergies Allergy Classification Reported Allergen(s) Allergy Type Date of Onset Reaction(s) Facility (7 sources) Aspirin Drug Allergy 2 Hives [facility] (5 sources) Banana Extract Drug Allergy 2 Nausea/Vom/Diar brandon [facility] (5 sources) poppyseed oil Allergy to substance 2 cramping [facility] (1 source) Aspirin Drug Allergy 4 [facility] (1 source) Banana Extract Drug Allergy 4 [facility] (1 source) poppy seed allergenic extract Drug Allergy 4 [facility] Medications Current Medications Medication Drug Class(es) Dates Sig (Normalized) Sig (Original) metFORMIN hydrochloride 500 mg oral tablet (7 sources) Biguanide Start: 05-16-2022 take 1 tablet by mouth twice daily Metformin 500 mg tablet Active 500 mg PO TWICE A DAY May 16, 2022 1:00am take 1 tablet by mouth twice rosa isela ly metFORMIN ER (FORTAMET) 500 mg 24 hr tablet Take 500 mg by mouth two times a day. Active 24 hr metoprolol succinate 100 mg extended release oral tablet (20 sources) beta-Adrenergic Tommie Start: 11-05-2020 End: 10-29-2021 take 1 tablet by mouth once daily Metoprolol Succinate 100 mg tablet extended release 24 hr Active 100 mg PO DAILY October 29, 2021 4:46pm Start: 09-27-2020 End: 11-05-2020 Metoprolol Succinate 50 mg t ablet extended release 24 hr Discontinued 100 mg PO DAILY September 27, 2020 5:16pm November 05, 2020 4:42pm Start: 09-27-2020 End: 11-05-2020 take 100 mg by mouth once daily Metoprolol Succinate Discontinued 100 MG PO DAILY September 27, 2020 5:16pm November 05, 2020 4:42pm Start: 06-03-2018 End: 09-27-2020 take 1 tablet by mouth once daily Metoprolol Succinate 50 mg tablet extended release 24 hr Discontinued 50 mg PO DAILY June 03, 2018 1:00am September 27, 2020 5:17pm Start: 05-26-2018 End: 06-03-2018 take 1 tablet by mouth once daily Metoprolol Succinate 25 mg tablet extended release 24 hr Discontinued 25 mg PO DAILY May 26, 2018 1:00am June 03, 2018 11:02am Start: 05-08-2018 End: 05-26-2018 Metoprolol Tartrate 25 MG ta blet Discontinued 12.5 mg PO DAILY May 08, 2018 1:00am May 26, 2018 11:57am Start: 05-08-2018 End: 05-26-2018 take 12.5 mg by mouth once daily Metoprolol Tartrate Discontinued 12.5 MG PO DAILY May 08, 2018 1:00am May 26, 2018 11:57am take 1 tablet by elizabeth th twice daily metoprolol tartrate, short acting, (LOPRESSOR) 50 mg tablet Take 50 mg by mouth two times a day. Active nitrofurantoin, macrocrystals 25 mg / nitrofurantoin, monohydrate 75 mg oral capsule (2 sources) Nitrofuran Antibacterial Start: 01-23-2024 End: 01-30-2024 take 1 capsule by mouth twice daily nitrofurantoin monohydrate and macrocrystal (MACROBID) 100 mg capsule Indications: Dysuria Take 1 capsule by mouth two times a day for 7 days. 14 capsule 01/23/2024 01/30/2024 Active rosuvastatin calcium 20 mg oral tablet (12 sources) HMG-CoA Reductase Inhibitor Start: 10-28-2023 take 1 tablet by mouth once daily rosuvastatin (CRESTOR) 20 mg tablet Take 20 mg by mouth once daily. 10/28/2023 Active Start: 05-16-2022 take 2 tablets by mo uth at bedtime Rosuvastatin 10 mg tablet Active 20 mg PO AT BEDTIME May 16, 2022 3:23pm Start: 05-16-2022 take 20 mg by mouth at bedtime Rosuvastatin Active 20 MG PO AT BEDTIME May 16, 2022 3:23pm Start: 06-16-2019 End: 05-16-2022 take 1 tablet by mouth at bedtime Rosuvastatin 10 mg tablet Discontinued 10 mg PO AT BEDTIME June 16, 2019 1:00am May 16, 2022 3:23pm Completed/Discontinued Medications Medication Drug Class(es) Dates Sig (Normalized) Sig (Original) naproxen 500 mg oral tablet (5 sources) Nonsteroidal Anti-inflammatory Drug Start: 11-13-2015 End: 05-26-2018 take 1 tablet by mouth twice daily as needed Naproxen 500 MG tablet Discontinued 500 mg PO TWICE DAILY NEEDED November 13, 2015 12:00am May 26, 2018 11:57am red yeast rice 600 mg oral capsule (10 sources) Start: 06-16-2019 End: 09-14-2020 take 1200 mg by mouth once daily Red Yeast Rice Discontinued 1200 MG PO DAILY June 16, 2019 4:58pm September 14, 2020 10:59am Start: 12-09-2018 End: 09-14-2020 take 1 capsule by mouth once daily Red Yeast Rice 600 mg capsule Discontinued 1200 mg PO DAILY June 16, 2019 4:58pm September 14, 2020 10:59am Problems Active Problems Problem Classification Problem Date Documented Da te Episodic/Chronic Cardiac dysrhythmias (8 sources) Multiple premature ventricular complexes; Translations: [Ventricular premature depolarization] Onset: 08-29-2024 12-09-2018 Chronic Diabetes mellitus without complication (6 sources) Hyperglycemia; Translations: [Hyperglycemia, unspecified] 05-16-2022 Episodic Disorders of lipid metabolism (7 sources) Mixed hyperlipidemia; Translations: [Mixed hyperlipidemia] 08-21-2020 Chronic Genitourinary symptoms and ill-defined conditions (1 source) Dysuria; Translations: [Dysuria] 01-23-2024 Episodic Past or Other Problems Problem Classification Problem Date Documented Da te Episodic/Chronic Other screening for suspected conditions (not mental disorders or infectious disease) (1 source) Other specified abnormal findings of blood chemistry; Translations: [Other specified abnormal findings of blood chemistry] Onset: 09-29-2023 Episodic Results Test Name Value Interpretation Reference Range Facility PSA,Total - Annual Screenon 08-24-2024 PSA,TOT SCREEN 0.86 ng/mL Normal 0.02-4.00 [facility] Comment on above: Order Comment: Order Date: 03/10/23 Order Info: [id number] - A1C Result Comment: This test was performed using the [employer] tPSA method. Measured values of a patient??sample can vary depending on the testing procedure used. PSA values determined on patient samples by different testing procedures cannot be used interchangeably. If there is a change in PSA assays while monitoring therapy, sequential testing should be performed to confirm baseline values. Performed By: #### L 501.9985, L500.4050, L100.0100, L501.5200, L500.4100, L501.9520 #### [facility] [address] [place], [place], [id number] Absolute neutrophil countOrd ered By: Aníbal Tapia on 08-23-2024 Neutrophils (Bld) [#/Vol] 2.1 10*3/uL 2.0-7.7 [facility] Anion gap in Serum or Plasma Ordered By: Aníbal Tapia on 08-23-2024 Anion gap [Moles/Vol] 11 mmol/L 5- [facility] BUN/creatinine ratioOrdered By: Aníbal Blairosbaldo on 08-23-2024 Urea nitrogen/Creatinine [Mass ratio] 17.7 mg/mg 10- [facility] Basophil percentageOrdered B y: Aníbal Batemandayron on 08-23-2024 Basophils/100 WBC (Bld) 1.8 % High 0-1 [facility] Bilirubin, totalOrdered By: Aníbal Regina on 08-23-2024 Bilirubin [Mass/Vol] 0.65 mg/dL 0.00-1.30 [facility] CBC W/Diff, Automatedon 07-31 Absolute Lymph 1.89 X10 3/uL Normal 0.83-4.51 [facility] Comment on above: Order Comment: Order Date: 09/25/23 Order Info: [id number] - CBCD Performed By: #### L [id number], L500.4050, L100.0100, L500.4100 #### [facility] [address] [place], [address] Absolute Neut 2.1 X10 3/uL Normal 2.0-7.7 [facility] Comment on above: Order Comment: Order Date: 09/25/23 Order Info: [id number] - CBCD Performed By: #### L [id number], L500.4050, L100.0100, L500.4100 #### [facility] [address] [place], [address] Basophils/100 WBC (Bld) 1.8 % High 0-1 [facility] Comment on above: Order Comment: Order Date: 09/25/23 Order Info: [id number] - CBCD Performed By: #### L [id number], L500.4050, L100.0100, L500.4100 #### [facility] [address] [place], [address] Eosinophils/100 WBC (Bld) 9.3 % High 0-5 [facility] Comment on above: Order Comment: Order Date: 09/25/23 Order Info: [id number] - CBCD Performed By: #### L [id number], L500.4050, L100.0100, L500.4100 #### [facility] [address] [place], [address] Erythrocyte distribution width (RBC) [Ratio] 12.4 % Normal 11.6-14.6 [facility] Comment on above: Order Comment: Order Date: 09/25/23 Order Info: 018- - CBCD Performed By: #### L 501.9985, L500.4050, L100.0100, L500.4100 #### [facility] [address] [place], [address] Hematocrit (Bld) [Volume fraction] 38.4 % Low 40-54 [facility] Comment on above: Order Comment: Order Date: 09/25/23 Order Info: [id number]- - CBCD Performed By: #### L [id number], L500.4050, L100.0100, L500.4100 #### [facility] [address] [place], [address] Hemoglobin (Bld) [Mass/Vol] 13.0 g/dL Normal 13.0-16.5 [facility] Comment on above: Order Comment: Order Date: 09/25/23 Order Info: 0184- - CBCD Performed By: #### L 501.9985, L500.4050, L100.0100, L500.4100 #### [facility] [address] [place], [address] IG% 0.200 Normal 0.0-0.9 [facility] Comment on above: Order Comment: Order Date: 09/25/23 Order Info: [id number]- - CBCD Result Comment: IG% - Immature Granulocytes (promyelocytes, myelocytes and metamyelocytes) > 1% indicates that a LEFT SHIFT is Present. Performed By: #### L 501.9985, L500.4050, L100.0100, L500.4100 #### [facility] [address] [place], [address] Lymphocytes/100 WBC (Bld) 37.2 % Normal 19-41 [facility] Comment on above: Order Comment: Order Date: 09/25/23 Order Info: [id number] - CBCD Performed By: #### L 501.9985, L500.4050, L100.0100, L500.4100 #### [facility] [address] [place], [address] MCH (RBC) [Entitic mass] 31.3 pg Normal 27.0-32.0 [facility] Comment on above: Order Comment: Order Date: 09/25/23 Order Info: 018- - CBCD Performed By: #### L 501.9985, L500.4050, L100.0100, L500.4100 #### [facility] [address] [place], [address] MCHC (RBC) [Mass/Vol] 33.9 g/dL Normal 32-36 [facility] Comment on above: Order Comment: Order Date: 09/25/23 Order Info: [id number]- - CBCD Performed By: #### L 501.9985, L500.4050, L100.0100, L500.4100 #### [facility] [address] [place], [address] MCV (RBC) [Entitic vol] 92.3 fL Normal 80-94 [facility] Comment on above: Order Comment: Order Date: 09/25/23 Order Info: [id number] - CBCD Performed By: #### L 501.9985, L500.4050, L100.0100, L500.4100 #### [facility] [address] [place], [address] Monocytes/100 WBC (Bld) 10.6 % High 0-10 [facility] Comment on above: Order Comment: Order Date: 09/25/23 Order Info: [id number] - CBCD Performed By: #### L 501.9985, L500.4050, L100.0100, L500.4100 #### [facility] [address] [place], [address] Neutrophils/100 WBC (Bld) 40.9 % Low 47-70 [facility] Comment on above: Order Comment: Order Date: 09/25/23 Order Info: [id number] - CBCD Performed By: #### L 501.9985, L500.4050, L100.0100, L500.4100 #### [facility] [address] [place], [address] Nucleated RBC (Bld) [#/Vol] 0 10*3/uL Normal 0-5 [facility] Comment on above: Order Comment: Order Date: 09/25/23 Order Info: [id number] - CBCD Performed By: #### L 501.9985, L500.4050, L100.0100, L500.4100 #### [facility] [address] [place], [address] Platelet mean volume (Bld) [Entitic vol] 9.5 fL Normal 6.2-12.0 [facility] Comment on above: Order Comment: Order Date: 09/25/23 Order Info: [id number] - CBCD Performed By: #### L 501.9985, L500.4050, L100.0100, L500.4100 #### [facility] [address] [place], [address] Platelets (Bld) [#/Vol] 175 10*3/uL Normal 150-450 [facility] Comment on above: Order Comment: Order Date: 09/25/23 Order Info: [id number] - CBCD Performed By: #### L 501.9985, L500.4050, L100.0100, L500.4100 #### [facility] [address] [place], [address] RBC (Bld) [#/Vol] 4.16 10*6/uL Low 4.6-6.2 [facility] Comment on above: Order Comment: Order Date: 09/25/23 Order Info: [id number] - CBCD Performed By: #### L 501.9985, L500.4050, L100.0100, L500.4100 #### [facility] [address] [place], [address] RDW SD 42.5 fl Normal 35.1-43.9 [facility] Comment on above: Order Comment: Order Date: 09/25/23 Order Info: [id number]- - CBCD Performed By: #### L 501.9985, L500.4050, L100.0100, L500.4100 #### [facility] [address] [place], [address] WBC (Bld) [#/Vol] 5.1 10*3/uL Normal 4.4-11.0 [facility] Comment on above: Order Comment: Order Date: 09/25/23 Order Info: [id number]- - CBCD Performed By: #### L 501.9985, L500.4050, L100.0100, L500.4100 #### [facility] [address] [place], [address] Calculated very low density lipoprotein (VLDL) cholesterol measurementOrdered By: Aníbal Tapia on 08-23-2024 VLDL Cholesterol 24 mg/dL 5-40 [facility] Carbon dioxide, total [Moles /volume] in Central venous bloodOrdered By: Aníbal Tapia on 08-23-2024 CO2 [Moles/Vol] 25.7 mmol/L 21.0-32.0 [facility] Chloride assayOrdered By: Shima Tapia on 08-23-2024 Chloride [Moles/Vol] 100 mmol/L 98-108 [facility] Comprehensive Metabolic Prof ilon 08-23-2024 Albumin [Mass/Vol] 4.1 g/dL Normal 3.4-4.8 [facility] Comment on above: Order Comment: Order Date: 09/25/23 Order Info: [id number] - CMP Order Info: [id number] - LIPID Performed By: #### L 501.9985, L500.4050, L100.0100, L500.4100 #### [facility] [address] [place], [address] Albumin/Globulin [Mass ratio] 1.3 {ratio} Normal 0.9-2.4 [facility] Comment on above: Order Comment: Order Date: 09/25/23 Order Info: [id number] - CMP Order Info: [id number] - LIPID Performed By: #### L 501.9985, L500.4050, L100.0100, L500.4100 #### [facility] [address] [place], [address] ALK PHOS 55 U/L Normal 40-129 [facility] Comment on above: Order Comment: Order Date: 09/25/23 Order Info: [id number] - CMP Order Info: [id number] - LIPID Performed By: #### L 501.9985, L500.4050, L100.0100, L500.4100 #### [facility] [address] [place], [address] ALT [Catalytic activity/Vol] 29 U/L Normal <=46 [facility] Comment on above: Order Comment: Order Date: 09/25/23 Order Info: [id number] - CMP Order Info: [id number] - LIPID Performed By: #### L 501.9985, L500.4050, L100.0100, L500.4100 #### [facility] [address] [place], [address] AST [Catalytic activity/Vol] 26 U/L Normal <=37 [facility] Comment on above: Order Comment: Order Date: 09/25/23 Order Info: [id number] - CMP Order Info: [id number] - LIPID Performed By: #### L 501.9985, L500.4050, L100.0100, L500.4100 #### [facility] [address] [place], [address] Bilirubin [Mass/Vol] 0.65 mg/dL Normal 0.00-1.30 [facility] Comment on above: Order Comment: Order Date: 09/25/23 Order Info: [id number] - CMP Order Info: [id number] - LIPID Performed By: #### L 501.9985, L500.4050, L100.0100, L500.4100 #### [facility] [address] [place], [address] BUN/CRE 17.7 RATIO Normal 10-20 [facility] Comment on above: Order Comment: Order Date: 09/25/23 Order Info: 0786- - CMP Order Info: [id number] - LIPID Performed By: #### L 501.9985, L500.4050, L100.0100, L500.4100 #### [facility] [address] [place], [address] Calcium [Mass/Vol] 9.3 mg/dL Normal 7.6-11.0 [facility] Comment on above: Order Comment: Order Date: 09/25/23 Order Info: 0786- - CMP Order Info: [id number] - LIPID Performed By: #### L 501.9985, L500.4050, L100.0100, L500.4100 #### [facility] [address] [place], [address] Chloride [Moles/Vol] 100 mmol/L Normal 98-108 [facility] Comment on above: Order Comment: Order Date: 09/25/23 Order Info: [id number] - CMP Order Info: [id number] - LIPID Performed By: #### L 501.9985, L500.4050, L100.0100, L500.4100 #### [facility] [address] [place], [address] CO2 [Moles/Vol] 25.7 mmol/L Normal 21.0-32.0 [facility] Comment on above: Order Comment: Order Date: 09/25/23 Order Info: [id number] - CMP Order Info: [id number] - LIPID Performed By: #### L 501.9985, L500.4050, L100.0100, L500.4100 #### [facility] [address] [place], [address] Creatinine [Mass/Vol] 0.84 mg/dL Normal 0.70-1.20 [facility] Comment on above: Order Comment: Order Date: 09/25/23 Order Info: [id number] - CMP Order Info: [id number] - LIPID Performed By: #### L 501.9985, L500.4050, L100.0100, L500.4100 #### [facility] [address] [place], [address] GAP 11 Normal 5-15 [facility] Comment on above: Order Comment: Order Date: 09/25/23 Order Info: [id number]- - CMP Order Info: [id number] - LIPID Performed By: #### L 501.9985, L500.4050, L100.0100, L500.4100 #### [facility] [address] [place], [address] GFR/1.73 sq M.predicted among non-blacks MDRD (S/P/Bld) [Vol rate/Area] 97 mL/min/{1.73_m2} Normal >60 [facility] Comment on above: Order Comment: Order Date: 09/25/23 Order Info: [id number] - CMP Order Info: [id number] - LIPID Result Comment: mL/m in/1.73m2 CKD-EPI Creatinine Equation (2020) Performed By: #### L 501.9985, L500.4050, L100.0100, L500.4100 #### [facility] [address] [place], [address] Globulin (S) [Mass/Vol] 3.1 g/dL Normal 2.2-4.2 [facility] Comment on above: Order Comment: Order Date: 09/25/23 Order Info: [id number] - CMP Order Info: [id number] - LIPID Performed By: #### L 501.9985, L500.4050, L100.0100, L500.4100 #### [facility] [address] [place], [address] Glucose [Mass/Vol] 163 mg/dL High 70-99 [facility] Comment on above: Order Comment: Order Date: 09/25/23 Order Info: [id number] - CMP Order Info: [id number] - LIPID Performed By: #### L 501.9985, L500.4050, L100.0100, L500.4100 #### [facility] [address] [place], [address] Potassium [Moles/Vol] 4.3 mmol/L Normal 3.3-5.1 [facility] Comment on above: Order Comment: Order Date: 09/25/23 Order Info: [id number]- - CMP Order Info: [id number] - LIPID Performed By: #### L 501.9985, L500.4050, L100.0100, L500.4100 #### [facility] [address] [place], [address] Sodium [Moles/Vol] 137 mmol/L Normal 133-145 [facility] Comment on above: Order Comment: Order Date: 09/25/23 Order Info: [id number] - CMP Order Info: [id number] - LIPID Performed By: #### L 501.9985, L500.4050, L100.0100, L500.4100 #### [facility] [address] [place], [place], [address] T PROT 7.2 g/dL Normal 5.9-8.4 [facility] Comment on above: Order Comment: Order Date: 09/25/23 Order Info: [id number] - CMP Order Info: [id number] - LIPID Performed By: #### L 501.9985, L500.4050, L100.0100, L500.4100 #### [facility] [address] [place], [place], [address] Urea nitrogen [Mass/Vol] 15 mg/dL Normal 4-19 [facility] Comment on above: Order Comment: Order Date: 09/25/23 Order Info: [id number] - CMP Order Info: [id number] - LIPID Performed By: #### L 501.9985, L500.4050, L100.0100, L500.4100 #### [facility] [address] [place], [place], [address] Eosinophil percentageOrdered By: Aníbal Tapia on 08-23-2024 Eosinophils/100 WBC (Bld) 9.3 % High 0-5 [facility] Erythrocyte distribution wid th ratioOrdered By: Aníbal Tapia on 08-23-2024 Erythrocyte distribution width (RBC) [Ratio] 12.4 % 11.6-14.6 [facility] Erythrocyte distribution wid th standard deviationOrdered By: Aníbal Tapia on 08-23-2024 Erythrocyte distribution width (RBC) [Entitic vol] 42.5 fL 35.1-43.9 [facility] GFR/1.73 sq M.predicted thania g non-blacks MDRD (S/P/Bld) [Vol rate/Area]Ordered By: Aníbal Tapia on 08-23-2024 Estimated GFR (MDRD) Non-Af Amer 97 >60 [facility] Comment on above: mL/min/1.73m2 CKD-EP I Creatinine Equation (2020) Hematocrit Auto (Bld) [Volum e fraction]Ordered By: Aníbal Tapia on 08-23-2024 Hematocrit (Bld) [Volume fraction] 38.4 % Low 40-54 [facility] Hemoglobin A1con 08-23-2024 HbA1c (Bld) [Mass fraction] 6.3 % Normal <=5.6 [facility] Comment on above: Order Comment: Order Date: 09/25/23 Order Info: [id number] - A1C Performed By: #### L 501.9985, L500.4050, L100.0100, L500.4100 #### [facility] [address] [place], [place], [address] Hemoglobin A1c percentageOrd ered By: Aníbal Tapia on 08-23-2024 HbA1c (Bld) [Mass fraction] 6.3 % >5.7 [facility] Hemoglobin measurementOrdere d By: Aníbal Tapia on 08-23-2024 Hemoglobin (Bld) [Mass/Vol] 13.0 g/dL 13.0-16.5 [facility] Immature granulocytes/100 WB C Auto (Bld)Ordered By: Aníbal Tapia on 08-23-2024 Immature granulocytes/100 WBC (Bld) 0.200 % 0.0-0.9 [facility] Comment on above: IG% - Immature Granu locytes (promyelocytes, myelocytes and metamyelocytes) > 1% indicates that a LEFT SHIFT is Present. LDL calc ser/plasOrdered By: Aníbal Tapia on 08-23-2024 LDL Cholesterol, Calculated 92 mg/dL [facility] Comment on above: Jqqcsjmccf=531-929 m g/dL & Higher Lwhc=968 mg/dL or greater Laboratory - Chemistry and C hemistry - challengeOrdered By: Aníbal Tapia on 08-23-2024 AST [Catalytic activity/Vol] 26 U/L <38 [facility] Lipid Profileon 08-23-2024 CHOL:HDL 3.00 Normal [facility] Comment on above: Order Comment: Order Date: 09/25/23 Order Info: [id number] - CMP Order Info: [id number] - LIPID Performed By: #### L 501.9985, L500.4050, L100.0100, L500.4100 #### [facility] [address] [place], [address] Cholesterol [Mass/Vol] 173 mg/dL Normal <=200 [facility] Comment on above: Order Comment: Order Date: 09/25/23 Order Info: [id number] - CMP Order Info: [id number] - LIPID Result Comment: Chol esterol level, Desirable <200 mg/dL Borderline high cholesterol 200-239 mg/dL High cholesterol >=240 mg/dL Recommendations of the NCEP Adult Treatment Panel for the following risk-cutoff thresholds for the [place] population. Performed By: #### L 501.9985, L500.4050, L100.0100, L500.4100 #### [facility] [address] [place], [address] Cholesterol in HDL [Mass/Vol] 58 mg/dL Normal [facility] Comment on above: Order Comment: Order Date: 09/25/23 Order Info: [id number] - CMP Order Info: [id number] - LIPID Result Comment: Lou onal Cholesterol Education Program (NCEP) guidelines: <40 mg/dL: Low HDL-cholesterol (major risk factor for CHD) >= 60 mg/dL: High HDL-cholesterol (negative risk factor for CHD) HDL-cholesterol is affected by a number of factors, e.g. smoking, exercise, hormones, sex and age. Performed By: #### L 501.9985, L500.4050, L100.0100, L500.4100 #### [facility] [address] [place], [address] Cholesterol in LDL [Mass/Vol] 92 mg/dL Normal [facility] Comment on above: Order Comment: Order Date: 09/25/23 Order Info: [id number] - CMP Order Info: [id number] - LIPID Result Comment: Bord pkeyzt=225-130 mg/dL Higher Ahoz=206 mg/dL or greater Performed By: #### L 501.9985, L500.4050, L100.0100, L500.4100 #### [facility] [address] [place], [address] Cholesterol in VLDL [Mass/Vol] 24 mg/dL Normal 5-40 [facility] Comment on above: Order Comment: Order Date: 09/25/23 Order Info: [id number] - CMP Order Info: [id number] - LIPID Performed By: #### L 501.9985, L500.4050, L100.0100, L500.4100 #### [facility] [address] [place], [address] Triglyceride [Mass/Vol] 119 mg/dL Normal [facility] Comment on above: Order Comment: Order Date: 09/25/23 Order Info: [id number] - CMP Order Info: [id number] - LIPID Result Comment: The drugs N-Acetylcysteine and Metamizole may falsely depress this assay. Normal range: <150 mg/dL Borderline High: 150-199 mg/dL High: 200-499 mg/dL Very High: >500 mg/dL Performed By: #### L 501.9985, L500.4050, L100.0100, L500.4100 #### [facility] [address] [place], [address] Lymphocytes Auto (Unsp spec) [#/Vol]Ordered By: Aníbal Tapia on 08-23-2024 Lymphocytes (Bld) [#/Vol] 1.89 10*3/uL 0.83-4.5 1 [facility] Lymphocytes/100 WBC Auto (Un sp spec)Ordered By: Aníbal Tapia on 08-23-2024 Lymphocytes/100 WBC (Bld) 37.2 % 19-41 [facility] MCV (mean corpuscular volume ) determinationOrdered By: Aníbal Tapia on 08-23-2024 MCV (RBC) [Entitic vol] 92.3 fL 80-94 [facility] Mean corpuscular hemoglobin (MCH) determinationOrdered By: Aníbal Tapia on 08-23-2024 MCH (RBC) [Entitic mass] 31.3 pg 27.0-32.0 [facility] Mean corpuscular hemoglobin concentration (MCHC) determinationOrdered By: Aníbal Tapia on 08-23-2024 MCHC (RBC) [Mass/Vol] 33.9 g/dL 32-36 [facility] Mean platelet volume determi nationOrdered By: Aníbal Tapia on 08-23-2024 Platelet mean volume (Bld) [Entitic vol] 9.5 fL 6.2-12.0 [facility] Monocyte percentageOrdered B y: Aníbal Tapia on 08-23-2024 Monocytes/100 WBC (Bld) 10.6 % High 0-10 [facility] Neutrophil percentageOrdered By: Aníbal Tapia on 08-23-2024 Neutrophils/100 WBC (Bld) 40.9 % Low 47-70 [facility] Nucleated red blood cell per centageOrdered By: Aníbal Tapia on 08-23-2024 Nucleated RBC/100 WBC (Bld) [Ratio] 0 % 0-5 [facility] PSA, total screeningOrdered By: Aníbal Tapia on 08-23-2024 Prostate Specific Antigen Screen 0.86 ng/mL 0.02-4.00 [facility] Comment on above: This test was perfor med using the [employer] tPSA method. Measured values of a patient sample can vary depending on the testing procedure used. PSA values determined on patient samples by different testing procedures cannot be used interchangeably. If there is a change in PSA assays while monitoring therapy, sequential testing should be performed to confirm baseline values. Platelet countOrdered By: Shima Tapia on 08-23-2024 Platelets (Bld) [#/Vol] 175 10*3/uL 150-450 [facility] Potassium (Unsp spec) [Mass/ Vol]Ordered By: Aníbal Tapia on 08-23-2024 Potassium [Moles/Vol] 4.3 mmol/L 3.3-5.1 [facility] RBC Auto (Bld) [#/Vol]Ordere d By: Aníbal Tapia on 08-23-2024 RBC (Bld) [#/Vol] 4.16 10*6/uL Low 4.6-6.2 [facility] Screening total cholesterol/ high density lipoprotein (HDL) cholesterol ratioOrdered By: Aníbal Tapia on 08-23-2024 Cholesterol.total/Cholest pooja in HDL [Mass ratio] 3.00 {ratio} [facility] Serum creatinine measurement (mass/volume)Ordered By: Aníbal Tapia on 08-23-2024 Creatinine [Mass/Vol] 0.84 mg/dL 0.70-1.20 [facility] Serum globulin measurementOr dered By: Aníbal Tapia on 08-23-2024 Globulin (S) [Mass/Vol] 3.1 g/dL 2.2-4.2 [facility] Serum glucose measurement (m ass/volume)Ordered By: Aníbal Tapia on 08-23-2024 Glucose [Mass/Vol] 163 mg/dL High 70-99 [facility] Serum or plasma alanine vásquez otransferase (ALT) measurementOrdered By: Aníbal Tapia on 08-23-2024 ALT [Catalytic activity/Vol] 29 U/L <47 [facility] Serum or plasma albumin robert urement (mass/volume)Ordered By: Aníbal Tapia on 08-23-2024 Albumin [Mass/Vol] 4.1 g/dL 3.4-4.8 [facility] Serum or plasma albumin/glob ulin mass ratioOrdered By: Aníbal Tapia on 08-23-2024 Albumin/Globulin [Mass ratio] 1.3 {ratio} 0.9-2.4 [facility] Serum or plasma alkaline mesha sphatase measurementOrdered By: Aníbal Tapia on 08-23-2024 ALP [Catalytic activity/Vol] 55 U/L 40-129 [facility] Serum or plasma calcium robert urement (mass/volume)Ordered By: Aníbal Tapia on 08-23-2024 Calcium [Mass/Vol] 9.3 mg/dL 7.6-11.0 [facility] Serum or plasma cholesterol in HDL measurement (mass/volume)Ordered By: Aníbal Tapia on 08-23-2024 Cholesterol in HDL [Mass/Vol] 58 mg/dL >40 [facility] Comment on above: National Cholesterol Education Program (NCEP) guidelines:<40 mg/dL: Low HDL-cholesterol (major risk factor for CHD)>= 60 mg/dL: High HDL-cholesterol (negative risk factor for CHD)HDL-cholesterol is affected by a number of factors, e.g. smoking, exercise, hormones, sex and age. Serum or plasma cholesterol measurement (mass/volume)Ordered By: Aníbal Tapia on 08-23-2024 Cholesterol [Mass/Vol] 173 mg/dL <201 [facility] Comment on above: Cholesterol level, D esirable <200 mg/dLBorderline high cholesterol 200-239 mg/dLHigh cholesterol >=240 mg/dLRecommendations of the NCEP Adult Treatment Panel for the following risk-cutoff thresholds for the [place] population. Serum or plasma urea nitroge n measurement (mass/volume)Ordered By: Aníbal Tapia on 08-23-2024 Urea nitrogen [Mass/Vol] 15 mg/dL 4-19 [facility] Sodium levelOrdered By: Aníbal Tapia on 08-23-2024 Sodium [Moles/Vol] 137 mmol/L 133-145 [facility] Total proteinOrdered By: Jose Tapia on 08-23-2024 Protein [Mass/Vol] 7.2 g/dL 5.9-8.4 [facility] Triglycerides measurementOrd ered By: Aníbal Tapia on 08-23-2024 Triglyceride [Mass/Vol] 119 mg/dL <199 [facility] Comment on above: The drugs N-Acetylcy steine and Metamizole may falsely depress this assay. Normal range: <150 mg/dLBorderline High: 150-199 mg/dLHigh: 200-499 mg/dLVery High: >500 mg/dL White blood cell (WBC) count Ordered By: Aníbal Tapia on 08-23-2024 WBC (Bld) [#/Vol] 5.1 10*3/uL 4.4-11.0 [facility] CNPEstrella 01-25-2024 [facility] Telephone ([facility]) ---- RUBENS NICHOLS ([id number]) 1960 M Date Time Provider Department 01/25/24 ASHUTOSH RIVERA [facility] During your visit today, we recorded the following information about you: Little Ahumada LPN 01/25/2024 9:52 AM Signed ----- Message from Ashutosh Rivera MD sent at 01/25/2024 8:38 AM EDT ----- Urine culture showed an infection with a bacteria that should respond to the antibiotic prescribed. Little Ahumada LPN 01/25/2024 9:53 AM Signed Left message for patient to return call for results and recommendations.GLENN Larkin M Robin, RN 01/25/2024 10:03 AM Signed Pt returned call and given provider's message below with verbalized understanding. Allergies As of Date: 01/25/2024 Noted Allergy Reaction ASA (ASPIRIN) 01/23/2024 4 - Hives Date Reviewed: 01/23/2024 Reviewed by: Le Manuel MA - Fully Assessed Reason for Visit: Results [95] Prescriptions as of 01/25/2024 - metFORMIN ER (FORTAMET) 500 mg 24 hr tablet Take 500 mg by mouth two times a day. - metoprolol tartrate, short acting, (LOPRESSOR) 50 mg tablet Take 50 mg by mouth two times a day. - nitrofurantoin monohydrate and macrocrystal (MACROBID) 100 mg capsule Take 1 capsule by mouth two times a day for 7 days. - rosuvastatin (CRESTOR) 20 mg tablet Take 20 mg by mouth once daily. Problem List As Of Date: 01/25/2024 (None) Encounter Status:Closed by Harpreet OTT on 01/25/24 Normal [facility] Bacteria Ur Culton 4 Bacteria identified Cx Nom (U) ORGANISM ID: 1 >=100,000 CFU/ml Escherichia coli ORGANISM ID: 1 (ESCHERICHIA COLI) ANTIBIOTIC INTERPRETATION DAVID STATUS REFERENCE RANGE Ampicillin R >=32 F Susceptible <=8 , Intermediate >8 , Resistant >16 Cefazolin S <=4 F Susceptible 0-16 , Intermediate <0 or >16 , Resistant >16 For uncomplicated urinary tract infections, cefazolin results can be used to predict susceptibility or resistance to cephalexin. Ceftriaxone S <=1 F Susceptible <=1 , Intermediate >1 , Resistant >=4 Cefepime S <=1 F Susceptible <=2 , Susceptible-Dose Dependent >2 , Resistant >=16 Ertapenem S <=0.5 F Susceptible <=0.5 , Intermediate >.5 , Resistant >1 Meropenem S <=0.25 F Susceptible <=1 , Intermediate >1 , Resistant >2 Ampicillin/Sulbact I 16 F Susceptible <=8 , Intermediate >8 , Resistant >16 Piperacillin/Tazoba c S <=4 F Susceptible <16 , Susceptible-Dose Dependent >=16 , Resistant >=32 Gentamicin S <=1 F Susceptible <=2 , Intermediate >2 , Resistant >=8 Tobramycin S <=1 F Susceptible <4 , Intermediate >=4 , Resistant >=8 Trimeth sulfameth S <=20 F Susceptible <=40 , Resistant >40 Ciprofloxacin S <=0.25 F Susceptible <0.5 , Intermediate >=.5 , Resistant >=1 Nitrofurantoin S <=16 F Susceptible <=32 , Intermediate >32 , Resistant >64 Abnormal [facility] Comment on above: Performed By: #### 6 30-4 #### [facility] CLIA [id number] [address] [place] [address] [place] Heidi 01-23-2024 [facility] Office Visit ([facility]) ---- RUBENS NICHOLS ([id number]) 1960 M Date Time Provider Department 01/23/24 11:30 AM ASHUTOSH RIVERA [facility] During your visit today, we recorded the following information about you: Temperature Pulse Respiration Blood pressure 98 degrees 74/minute 16/minute 132/80 Weight 80 kg Ashutosh Rivera MD 01/23/2024 11:50 AM Signed Patient presents with: Urinary Tract Infection: Entered by patient UTI: X 4 days HPI: Symptoms for about 4 days. Dysuria: Yes Frequency: Yes Hematuria: No. Urine is cloudy with odor. Discharge: No Nausea: No Fever or chills: No Back pain: unchanged low back pain Abdominal pain: No Prior UTI: Yes, treated by PCP a few years ago and feels similar. Suspicion for hot tub cause, used hot tub again last week. PHx of chlamydia. Denies concern for current exposure. Personal history of kidney stones: No Family history of kidney stones: father PAST MEDICAL HISTORY No date: Diabetes mellitus (HCC) No date: PVC (premature ventricular contraction) PAST SURGICAL HISTORY No date: INGUINAL HERNIA REPAIR HX; Left MEDICATIONS: Current Outpatient Medications Medication Sig metFORMIN ER (FORTAMET) 500 mg 24 hr tablet Take 500 mg by mouth two times a day. metoprolol tartrate, short acting, (LOPRESSOR) 50 mg tablet Take 50 mg by mouth two times a day. No current facility-administer ed medications for this visit. ALLERGIES: ALLERGIES Allergen Reactions Asa [Aspirin] Hives VITALS: BP 132/80 Pulse 74 Temp 36.7 ?C (98 ?F) (Tympanic) Resp 16 Wt 80 kg (176 lb 5.9 oz) SpO2 98% PHYSICAL EXAM: GEN: NAD HEENT: EOMI, conjunctiva clear, HEART: regular rate and rhythm, no murmurs LUNGS: clear to auscultation, no wheezes or crackles, no increased WOB ABDOMEN: Soft, nondistended, no masses, no suprapubic tenderness BACK: No CVA tenderness ASSESSMENT/PLAN: 1. Dysuria - ICD9: 788.1, ICD10: R30.0 - UA positive for jarrett esterase, hematuria, and proteinuria. Probable UTI - UA DIP, URINE (POC) - URINE CULTURE - advised follow up for blood on UA if no clear infection on culture. - NITROFURANTOIN MONOHYDRATE AND MACROCRYSTAL 100 MG ORAL CAP Ashutosh Rivera MD Allergies As of Date: 01/23/2024 Noted Allergy Reaction ASA (ASPIRIN) 01/23/2024 4 - Hives Date Reviewed: 01/23/2024 Reviewed by: Le Manuel MA - Fully Assessed Reason for Visit: Urinary Tract Infection [4236] Cmt: Entered by patient UTI [116] Cmt: X 4 days Primary Visit Diagnosis:Dysuria [R30.0] Order(s):UA DIP, URINE (POC) [4090727] Order #: [id number]. #:[id number] URINE CULTURE [SQURCUL] Order #: [id number]. #:[id number] nitrofurantoin monohydrate and macrocrystal (MACROBID) 100 mg capsuleTake 1 capsule by mouth two times a day for 7 days.Disp: 14 capsuleRfl: 0 Prescriptions as of 01/23/2024 - metFORMIN ER (FORTAMET) 500 mg 24 hr tablet Take 500 mg by mouth two times a day. - metoprolol tartrate, short acting, (LOPRESSOR) 50 mg tablet Take 50 mg by mouth two times a day. - nitrofurantoin monohydrate and macrocrystal (MACROBID) 100 mg capsule Take 1 capsule by mouth two times a day for 7 days. - rosuvastatin (CRESTOR) 20 mg tablet Take 20 mg by mouth once daily. Problem List As Of Date: 01/23/2024 (None) Prescriptions ordered this encounter Disp Refills Start End NITROFURANTOIN MONOHYDRATE AND MACROCR* 14 c* 0 01/23/2024 01/30/2024 Route: ORAL Sig: Take 1 capsule by mouth two times a day for 7 days. Level of Service: OFFICE/OUTPATIENT [facility] 30 MINUTES [71432] Encounter Status:Closed by ASHUTOSH RIVERA on 01/23/24 Normal [facility] UA DIP, URINE (POC)on 2023 BILIRUBIN UA (POCT) Negative Negative [facility] CLARITY UA (POCT) Clear [facility] COLOR UA (POCT) Yellow [facility] GLUCOSE UA (POCT) Negative Negative mg/dL [facility] Hemoglobin Ql (U) Moderate Abnormal Negative [facility] Interpretation and review of laboratory results Abnormal [facility] KETONE UA (POCT) Negative Negative mg/dL [facility] LEUKOCYTES UA (POCT) Moderate Abnormal Negative [facility] NITRITE UA (POCT) Negative Negative [facility] PH UA (POCT) 6.0 4.5 - 8.0 [facility] Protein Ql (U) 100 mg/dL Abnormal Negative [facility] SPECIFIC GRAVITY UA (POCT) 1.010 1.005 - 1.030 [facility] UROBILINOGEN UA (POCT) 0.2 Joanna l E.U./dL [facility] Location:[address], [place], [place], [id number] [place] [address] POINT OF CARE [facility] Absolute lymphocyte countOrd ered By: Aníbal Tapia on 09-24-2023 Lymphocytes Auto (Unsp spec) [#/Vol] 1.79 10*3/uL 0.83-4.51 [facility] Automated lymphocyte count a s percentage of total leukocytesOrdered By: Aníbal Tapia on 09-24-2023 Lymphocytes/100 WBC Auto (Unsp spec) 37.4 % 19-41 [facility] Basophil percentageOrdered B y: Aníbal Tapia on 09-24-2023 Basophils/100 WBC (Bld) 1.5 % 0-1 [facility] Bilirubin [Mass/Vol] 0.50 mg/dL 0.20-1.00 [facility] Comment on above: For patients on eltr ombopag therapy, use of Dimension [place] TBIL is not recommended. Chloride [Moles/Vol] 105 mmol/L 98-107 [facility] Cholesterol [Mass/Vol] 156 mg/dL <200 [facility] Comment on above: <200 mg/dL Desirable 200-240 mg/dL Borderline >240 mg/dL High Risk Eosinophils/100 WBC (Bld) 9.6 % 0-5 [facility] Glucose [Mass/Vol] 115 mg/dL 74-106 [facility] Comment on above: Fasting Glucose resu lt from 100 to 125 mg/dL suggests IMPAIRED HOMEOSTASIS per A.D.A. criteria. Hemoglobin (Bld) [Mass/Vol] 13.6 g/dL 13.0-16.5 [facility] Monocytes/100 WBC (Bld) 13.6 % 0-10 [facility] Neutrophils (Bld) [#/Vol] 1.8 10*3/uL 2.0-7.7 [facility] Neutrophils/100 WBC (Bld) 37.7 % 47-70 [facility] Potassium [Moles/Vol] 4.1 mmol/L 3.5-5.1 [facility] Protein [Mass/Vol] 7.7 g/dL 6.4-8.2 [facility] Sodium [Moles/Vol] 141 mmol/L 136-145 [facility] Triglyceride [Mass/Vol] 161 mg/dL <199 [facility] Comment on above: The drugs N-Acetylcy steine and Metamizole may falsely depress this assay.Serum Triglycerides Reference Interval Normal <150 mg/dL Borderline high 150 - 199 mg/dL High 200 - 499 mg/dL Very High > or = 500 mg/dL WBC (Bld) [#/Vol] 4.8 10*3/uL 4.4-11.0 [facility] CBC W/Diff, Automatedon 08-31 Absolute Lymph 1.79 X10 3/uL Normal 0.83-4.51 [facility] Comment on above: Order Comment: Order Date: 03/10/23 Order Info: [id number] - CBCD Performed By: #### L 501.9985, L500.4050, L100.0100, L501.5200, L500.4100, L501.9520 #### [facility] [address] [facility] [place], [address] Absolute Neut 1.8 X10 3/uL Low 2.0-7.7 [facility] Comment on above: Order Comment: Order Date: 03/10/23 Order Info: [id number] - CBCD Performed By: #### L 501.9985, L500.4050, L100.0100, L501.5200, L500.4100, L501.9520 #### [facility] [address] [place], [address] Basophils/100 WBC (Bld) 1.5 % High 0-1 [facility] Comment on above: Order Comment: Order Date: 03/10/23 Order Info: 018- - CBCD Performed By: #### L 501.9985, L500.4050, L100.0100, L501.5200, L500.4100, L501.9520 #### [facility] [address] [place], [address] Eosinophils/100 WBC (Bld) 9.6 % High 0-5 [facility] Comment on above: Order Comment: Order Date: 03/10/23 Order Info: 018- - CBCD Performed By: #### L 501.9985, L500.4050, L100.0100, L501.5200, L500.4100, L501.9520 #### [facility] [address] [place], [address] Erythrocyte distribution width (RBC) [Ratio] 12.1 % Normal 11.6-14.6 [facility] Comment on above: Order Comment: Order Date: 03/10/23 Order Info: 018- - CBCD Performed By: #### L 501.9985, L500.4050, L100.0100, L501.5200, L500.4100, L501.9520 #### [facility] [address] [place], [address] Hematocrit (Bld) [Volume fraction] 40.6 % Normal 40-54 [facility] Comment on above: Order Comment: Order Date: 03/10/23 Order Info: 018- - CBCD Performed By: #### L 501.9985, L500.4050, L100.0100, L501.5200, L500.4100, L501.9520 #### [facility] [address] [place], [place], [id number] Hemoglobin (Bld) [Mass/Vol] 13.6 g/dL Normal 13.0-16.5 [facility] Comment on above: Order Comment: Order Date: 03/10/23 Order Info: [id number] - CBCD Performed By: #### L 501.9985, L500.4050, L100.0100, L501.5200, L500.4100, L501.9520 #### [facility] [address] [place], [address] IG% 0.200 Normal 0.0-0.9 [facility] Comment on above: Order Comment: Order Date: 03/10/23 Order Info: [id number] - CBCD Result Comment: IG% - Immature Granulocytes (promyelocytes, myelocytes and metamyelocytes) > 1% indicates that a LEFT SHIFT is Present. Performed By: #### L 501.9985, L500.4050, L100.0100, L501.5200, L500.4100, L501.9520 #### [facility] [address] [place], [address] Lymphocytes/100 WBC (Bld) 37.4 % Normal 19-41 [facility] Comment on above: Order Comment: Order Date: 03/10/23 Order Info: 0184- - CBCD Performed By: #### L 501.9985, L500.4050, L100.0100, L501.5200, L500.4100, L501.9520 #### [facility] [address] [place], [address] MCH (RBC) [Entitic mass] 30.4 pg Normal 27.0-32.0 [facility] Comment on above: Order Comment: Order Date: 03/10/23 Order Info: [id number] - CBCD Performed By: #### L 501.9985, L500.4050, L100.0100, L501.5200, L500.4100, L501.9520 #### [facility] [address] [place], [address] MCHC (RBC) [Mass/Vol] 33.5 g/dL Normal 32-36 [facility] Comment on above: Order Comment: Order Date: 03/10/23 Order Info: 018- - CBCD Performed By: #### L 501.9985, L500.4050, L100.0100, L501.5200, L500.4100, L501.9520 #### [facility] [address] [place], [address] MCV (RBC) [Entitic vol] 90.8 fL Normal 80-94 [facility] Comment on above: Order Comment: Order Date: 03/10/23 Order Info: 018- - CBCD Performed By: #### L 501.9985, L500.4050, L100.0100, L501.5200, L500.4100, L501.9520 #### [facility] [address] [place], [address] Monocytes/100 WBC (Bld) 13.6 % High 0-10 [facility] Comment on above: Order Comment: Order Date: 03/10/23 Order Info: 018- - CBCD Performed By: #### L 501.9985, L500.4050, L100.0100, L501.5200, L500.4100, L501.9520 #### [facility] [address] [place], [address] Neutrophils/100 WBC (Bld) 37.7 % Low 47-70 [facility] Comment on above: Order Comment: Order Date: 03/10/23 Order Info: 018- - CBCD Performed By: #### L 501.9985, L500.4050, L100.0100, L501.5200, L500.4100, L501.9520 #### [facility] [address] [place], [address] Nucleated RBC (Bld) [#/Vol] 0 10*3/uL Normal 0-5 [facility] Comment on above: Order Comment: Order Date: 03/10/23 Order Info: [id number] - CBCD Performed By: #### L 501.9985, L500.4050, L100.0100, L501.5200, L500.4100, L501.9520 #### [facility] [address] [place], [address] Platelet mean volume (Bld) [Entitic vol] 9.9 fL Normal 6.2-12.0 [facility] Comment on above: Order Comment: Order Date: 03/10/23 Order Info: [id number] - CBCD Performed By: #### L 501.9985, L500.4050, L100.0100, L501.5200, L500.4100, L501.9520 #### [facility] [address] [place], [address] Platelets (Bld) [#/Vol] 204 10*3/uL Normal 150-450 [facility] Comment on above: Order Comment: Order Date: 03/10/23 Order Info: [id number] - CBCD Performed By: #### L 501.9985, L500.4050, L100.0100, L501.5200, L500.4100, L501.9520 #### [facility] [address] [place], [address] RBC (Bld) [#/Vol] 4.47 10*6/uL Low 4.6-6.2 [facility] Comment on above: Order Comment: Order Date: 03/10/23 Order Info: [id number] - CBCD Performed By: #### L 501.9985, L500.4050, L100.0100, L501.5200, L500.4100, L501.9520 #### [facility] [address] [place], [place], [id number] RDW SD 40.3 fl Normal 35.1-43.9 [facility] Comment on above: Order Comment: Order Date: 03/10/23 Order Info: 0184-1 - CBCD Performed By: #### L 501.9985, L500.4050, L100.0100, L501.5200, L500.4100, L501.9520 #### [facility] [address] [place], [place], [address] WBC (Bld) [#/Vol] 4.8 10*3/uL Normal 4.4-11.0 [facility] Comment on above: Order Comment: Order Date: 03/10/23 Order Info: 0184- - CBCD Performed By: #### L 501.9985, L500.4050, L100.0100, L501.5200, L500.4100, L501.9520 #### [facility] [address] [place], [place], [id number] Comprehensive Metabolic Prof [facility] 09-24-2023 Albumin [Mass/Vol] 3.8 g/dL Normal 3.2-5.0 [facility] Comment on above: Order Comment: Order Date: 03/10/23 Order Info: [id number] - CMP Order Info: [id number] - LIPID Order Info: [id number] - MG Order Info: [id number] - TSH Order Info: [id number] - T4F elevated TSH Performed By: #### L 501.9985, L500.4050, L100.0100, L501.5200, L500.4100, L501.9520 #### [facility] [address] [place], [place], [id number] Albumin/Globulin [Mass ratio] 1.0 {ratio} Normal 0.9-2.4 [facility] Comment on above: Order Comment: Order Date: 03/10/23 Order Info: [id number] - CMP Order Info: [id number] - LIPID Order Info: [id number] - MG Order Info: [id number] - TSH Order Info: [id number] - T4F elevated TSH Performed By: #### L 501.9985, L500.4050, L100.0100, L501.5200, L500.4100, L501.9520 #### [facility] [address] [place], [address] ALK P 47 U/L Normal 45-117 [facility] Comment on above: Order Comment: Order Date: 03/10/23 Order Info: 86-1 - CMP Order Info: [id number] - LIPID Order Info: [id number] - MG Order Info: [id number] - TSH Order Info: [id number] - T4F elevated TSH Performed By: #### L 501.9985, L500.4050, L100.0100, L501.5200, L500.4100, L501.9520 #### [facility] [address] [place], [address] ALT [Catalytic activity/Vol] 25 U/L Normal 16-61 [facility] Comment on above: Order Comment: Order Date: 03/10/23 Order Info: 86-1 - CMP Order Info: [id number] - LIPID Order Info: [id number] - MG Order Info: 6-3 - TSH Order Info: [id number] - T4F elevated TSH Performed By: #### L 501.9985, L500.4050, L100.0100, L501.5200, L500.4100, L501.9520 #### [facility] [address] [place], [address] AST [Catalytic activity/Vol] 18 U/L Normal 15-37 [facility] Comment on above: Order Comment: Order Date: 03/10/23 Order Info: [id number] - CMP Order Info: [id number] - LIPID Order Info: [id number] - MG Order Info: [id number] - TSH Order Info: [id number] - T4F elevated TSH Performed By: #### L 501.9985, L500.4050, L100.0100, L501.5200, L500.4100, L501.9520 #### [facility] [address] [place], [place], [id number] Bilirubin [Mass/Vol] 0.50 mg/dL Normal 0.20-1.00 [facility] [facility] Comment on above: Order Comment: Order Date: 03/10/23 Order Info: 86-1 - CMP Order Info: [id number] - LIPID Order Info: [id number] - MG Order Info: 3016-3 - TSH Order Info: 3024-7 - T4F elevated TSH Result Comment: For patients on eltrombopag therapy, use of Dimension [place] TBIL is not recommended. Performed By: #### L 501.9985, L500.4050, L100.0100, L501.5200, L500.4100, L501.9520 #### [facility] [address] [place], [place], [id number] [phone] BUN/CRE 20.5 RATIO High 10-20 [facility] Comment on above: Order Comment: Order Date: 03/10/23 Order Info: [id number] - CMP Order Info: [id number] - LIPID Order Info: [id number] - MG Order Info: 3016-3 - TSH Order Info: 3024-7 - T4F elevated TSH Performed By: #### L 501.9985, L500.4050, L100.0100, L501.5200, L500.4100, L501.9520 #### [facility] [address] [place], [place], [id number] [place],Total 9.6 mg/dL Normal 8.5-10.1 [facility] Comment on above: Order Comment: Order Date: 03/10/23 Order Info: [id number] - CMP Order Info: [id number] - LIPID Order Info: [id number] - MG Order Info: 3016-3 - TSH Order Info: 3024-7 - T4F elevated TSH Performed By: #### L 501.9985, L500.4050, L100.0100, L501.5200, L500.4100, L501.9520 #### [facility] [address] [place], [address] Chloride [Moles/Vol] 105 mmol/L Normal 98-107 [facility] Comment on above: Order Comment: Order Date: 03/10/23 Order Info: 86-1 - CMP Order Info: [id number] - LIPID Order Info: [id number] - MG Order Info: [id number] - TSH Order Info: 3024-7 - T4F elevated TSH Performed By: #### L 501.9985, L500.4050, L100.0100, L501.5200, L500.4100, L501.9520 #### [facility] [address] [place], [place], [phone] ([phone] CO2 [Moles/Vol] 28.0 mmol/L Normal 21.0-32.0 [facility] Comment on above: Order Comment: Order Date: 03/10/23 Order Info: 785- - CMP Order Info: [id number] - LIPID Order Info: [id number] - MG Order Info: 3016-3 - TSH Order Info: 3024-7 - T4F elevated TSH Performed By: #### L 501.9985, L500.4050, L100.0100, L501.5200, L500.4100, L501.9520 #### [facility] [address] [place], [place], [id number] [phone] Creatinine [Mass/Vol] 0.88 mg/dL Normal 0.70-1.30 [facility] [place] Comment on above: Order Comment: Order Date: 03/10/23 Order Info: 785-1 - CMP Order Info: [id number] - LIPID Order Info: [id number] - MG Order Info: 3016-3 - TSH Order Info: 3024-7 - T4F elevated TSH Result Comment: The validity of the calculated GFR GFRAA in patients over 70 years has not been determined. Clinical correlation is essential. Performed By: #### L 501.9985, L500.4050, L100.0100, L501.5200, L500.4100, L501.9520 #### [facility] [address] [place], [place], [id number] EST GFR - AA 112 mL/min Normal >60 [facility] Comment on above: Order Comment: Order Date: 03/10/23 Order Info: 86-1 - CMP Order Info: [id number] - LIPID Order Info: [id number] - MG Order Info: 301-3 - TSH Order Info: 3024-7 - T4F elevated TSH Result Comment: Afri can [place] GFR Calc Performed By: #### L 501.9985, L500.4050, L100.0100, L501.5200, L500.4100, L501.9520 #### [facility] [address] [place], [place], [id number] GAP 8 Normal 5-15 [facility] Comment on above: Order Comment: Order Date: 03/10/23 Order Info: 785- - CMP Order Info: [id number] - LIPID Order Info: [id number] - MG Order Info: [id number] - TSH Order Info: [id number] - T4F elevated TSH Performed By: #### L 501.9985, L500.4050, L100.0100, L501.5200, L500.4100, L501.9520 #### [facility] [address] [place], [place], [id number] GFR/1.73 sq M.predicted among non-blacks MDRD (S/P/Bld) [Vol rate/Area] 93 mL/min/{1.73_m2} Normal >60 [facility] Comment on above: Order Comment: Order Date: 03/10/23 Order Info: 86-1 - CMP Order Info: [id number] - LIPID Order Info: [id number] - MG Order Info: 3016-3 - TSH Order Info: 3024-7 - T4F elevated TSH Result Comment: Non- GFR Calc Performed By: #### L 501.9985, L500.4050, L100.0100, L501.5200, L500.4100, L501.9520 #### [facility] [address] [place], [address] Globulin (S) [Mass/Vol] 3.9 g/dL Normal 2.2-4.2 [facility] Comment on above: Order Comment: Order Date: 03/10/23 Order Info: [id number] - CMP Order Info: [id number] - LIPID Order Info: [id number] - MG Order Info: 3016-3 - TSH Order Info: 302-7 - T4F elevated TSH Performed By: #### L 501.9985, L500.4050, L100.0100, L501.5200, L500.4100, L501.9520 #### [facility] [address] [place], [address] Glucose [Mass/Vol] 115 mg/dL High 74-106 [facility] Comment on above: Order Comment: Order Date: 03/10/23 Order Info: [id number] - CMP Order Info: - LIPID Order Info: [id number] - MG Order Info: 3 - TSH Order Info: 3023-7 - T4F elevated TSH Result Comment: Fast ing Glucose result from 100 to 125 mg/dL suggests IMPAIRED HOMEOSTASIS per A.D.A. criteria. Performed By: #### L 501.9985, L500.4050, L100.0100, L501.5200, L500.4100, L501.9520 #### [facility] [address] [place], [address] Potassium [Moles/Vol] 4.1 mmol/L Normal 3.5-5.1 [facility] [place] Comment on above: Order Comment: Order Date: 03/10/23 Order Info: 785-1 - CMP Order Info: [id number] - LIPID Order Info: [id number] - MG Order Info: 3016-3 - TSH Order Info: 3024-7 - T4F elevated TSH Performed By: #### L 501.9985, L500.4050, L100.0100, L501.5200, L500.4100, L501.9520 #### [facility] [address] [place], [address] Sodium [Moles/Vol] 141 mmol/L Normal 136-145 [facility] Comment on above: Order Comment: Order Date: 03/10/23 Order Info: 86-1 - CMP Order Info: [id number] - LIPID Order Info: [id number] - MG Order Info: [id number] - TSH Order Info: 3024-7 - T4F elevated TSH Performed By: #### L 501.9985, L500.4050, L100.0100, L501.5200, L500.4100, L501.9520 #### [facility] [address] [place], [place], [id number] T PROT 7.7 g/dL Normal 6.4-8.2 [facility] Comment on above: Order Comment: Order Date: 03/10/23 Order Info: [id number] - CMP Order Info: [id number] - LIPID Order Info: [id number] - MG Order Info: 3016-3 - TSH Order Info: 3024-7 - T4F elevated TSH Performed By: #### L 501.9985, L500.4050, L100.0100, L501.5200, L500.4100, L501.9520 #### [facility] [address] [place], [place], [phone] Urea nitrogen [Mass/Vol] 18 mg/dL Normal 7-18 [facility] Comment on above: Order Comment: Order Date: 03/10/23 Order Info: [id number] - CMP Order Info: [id number] - LIPID Order Info: [id number] - MG Order Info: [id number] - TSH Order Info: 3024-7 - T4F elevated TSH Performed By: #### L 501.9985, L500.4050, L100.0100, L501.5200, L500.4100, L501.9520 #### [facility] [address] [place], [place], [id number] Determination of erythrocyte mean corpuscular volume (MCV)Ordered By: Aníbal Tapia on 09-24-2023 MCV (RBC) [Entitic vol] 90.8 fL 80-94 [facility] Erythrocyte distribution wid th ratioOrdered By: Aníbal Tapia on 09-24-2023 Erythrocyte distribution width (RBC) [Ratio] 12.1 % 11.6-14.6 [facility] Erythrocyte distribution wid th standard deviationOrdered By: Aníbal Tapia on 09-24-2023 Erythrocyte distribution width (RBC) [Entitic vol] 40.3 fL 35.1-43.9 [facility] Hematocrit Auto (Bld) [Volum e fraction]Ordered By: Aníbal Tapia on 09-24-2023 Hematocrit (Bld) [Volume fraction] 40.6 % 40-54 [facility] Hemoglobin A1con 09-24-2023 HbA1c (Bld) [Mass fraction] 6.0 % High 3.8-5.6 [facility] Comment on above: Order Comment: Order Date: 03/10/23 Order Info: [id number] - A1C Result Comment: Norm al < 5.7 % Prediabetic 5.7 - 6.4 % Diabetic >or= 6.5 % Please note range changes. Performed By: #### L 501.9985, L500.4050, L100.0100, L501.5200, L500.4100, L501.9520 #### [facility] [address] [facility] [address] [place], [place], [id number] Immature granulocytes/100 WB C Auto (Bld)Ordered By: Aníbal Tapia on 09-24-2023 Immature granulocytes/100 WBC (Bld) 0.200 % 0.0-0.9 [facility] Comment on above: IG% - Immature Granu locytes (promyelocytes, myelocytes and metamyelocytes) > 1% indicates that a LEFT SHIFT is Present. Laboratory - Chemistry and C hemistry - challengeOrdered By: Aníbal Tapia on 09-24-2023 Albumin/Globulin [Mass ratio] 1.0 {ratio} 0.9-2.4 [facility] ALP [Catalytic activity/Vol] 47 U/L 45-117 [facility] ALT [Catalytic activity/Vol] 25 U/L 16-61 [facility] Cholesterol in HDL [Mass/Vol] 55 mg/dL >40 [facility] Comment on above: The drugs N-Acetylcy steine and Metamizole may falsely depress this assay. Reference Range HDL <40 mg/dL Low HDL Cholesterol HDL >or= 60 mg/dL High HDL Cholesterol Cholesterol in LDL [Mass/Vol] 69 mg/dL 0-130 [facility] CO2 [Moles/Vol] 28.0 mmol/L 21.0-32.0 [facility] Globulin (S) [Mass/Vol] 3.9 g/dL 2.2-4.2 [facility] Magnesium [Mass/Vol] 2.3 mg/dL 1.6-2.6 [facility] Urea nitrogen/Creatinine [Mass ratio] 20.5 mg/mg 10-20 [facility] - Hematology and Cell countsOrdered By: Aníbal Tapia on 09-24-2023 MCH (RBC) [Entitic mass] 30.4 pg 27.0-32.0 [facility] MCHC (RBC) [Mass/Vol] 33.5 g/dL 32-36 [facility] [place] Nucleated RBC/100 WBC (Bld) [Ratio] 0 % 0-5 [facility] Platelet mean volume (Bld) [Entitic vol] 9.9 fL 6.2-12.0 [facility] Platelets (Bld) [#/Vol] 204 10*3/uL 150-450 [facility] Lipid Profileon 09-24-2023 Cholesterol [Mass/Vol] 156 mg/dL Normal 200 [facility] Comment on above: Order Comment: Order Date: 03/10/23 Order Info: [id number] - CMP Order Info: [id number] - LIPID Order Info: [id number] - MG Order Info: 3016-3 - TSH Order Info: 3024-7 - T4F elevated TSH Result Comment: <200 mg/dL Desirable 200-240 mg/dL Borderline >240 mg/dL High Risk Performed By: #### L 501.9985, L500.4050, L100.0100, L501.5200, L500.4100, L501.9520 #### [facility] [address] [place], [address] Cholesterol in HDL [Mass/Vol] 55 mg/dL Normal [facility] Comment on above: Order Comment: Order Date: 03/10/23 Order Info: 785- - CMP Order Info: [id number] - LIPID Order Info: [id number] - MG Order Info: 301-3 - TSH Order Info: 3024-7 - T4F elevated TSH Result Comment: The drugs N-Acetylcysteine and Metamizole may falsely depress this assay. Reference Range HDL <40 mg/dL Low HDL Cholesterol HDL >or= 60 mg/dL High HDL Cholesterol Performed By: #### L 501.9985, L500.4050, L100.0100, L501.5200, L500.4100, L501.9520 #### [facility] [address] [place], [address] Cholesterol in LDL [Mass/Vol] 69 mg/dL Normal 0-130 [facility] Comment on above: Order Comment: Order Date: 03/10/23 Order Info: [id number] - CMP Order Info: - LIPID Order Info: [id number] - MG Order Info: [id number] - TSH Order Info: 3024-7 - T4F elevated TSH Performed By: #### L 501.9985, L500.4050, L100.0100, L501.5200, L500.4100, L501.9520 #### [facility] [address] [place], [address] Cholesterol in VLDL [Mass/Vol] 32 mg/dL Normal 5-40 [facility] Comment on above: Order Comment: Order Date: 03/10/23 Order Info: [id number]- - CMP Order Info: [id number] - LIPID Order Info: [id number] - MG Order Info: 3016-3 - TSH Order Info: 3024-7 - T4F elevated TSH Performed By: #### L 501.9985, L500.4050, L100.0100, L501.5200, L500.4100, L501.9520 #### [facility] [address] [place], [place], [address] Triglyceride [Mass/Vol] 161 mg/dL Normal [facility] Comment on above: Order Comment: Order Date: 03/10/23 Order Info: [id number] - CMP Order Info: [id number] - LIPID Order Info: [id number] - MG Order Info: 3016-3 - TSH Order Info: 3023-7 - T4F elevated TSH Result Comment: The drugs N-Acetylcysteine and Metamizole may falsely depress this assay. Serum Triglycerides Reference Interval Normal <150 mg/dL Borderline high 150 - 199 mg/dL High 200 - 499 mg/dL Very High > or = 500 mg/dL Performed By: #### L 501.9985, L500.4050, L100.0100, L501.5200, L500.4100, L501.9520 #### [facility] [address] [place], [place], [id number] Magnesiumon 09-24-2023 Magnesium [Mass/Vol] 2.3 mg/dL Normal 1.6-2.6 [facility] Comment on above: Order Comment: Order Date: 03/10/23 Order Info: [id number] - CMP Order Info: [id number] - LIPID Order Info: [id number] - MG Order Info: 3016-3 - TSH Order Info: 3023-7 - T4F elevated TSH Performed By: #### L 501.9985, L500.4050, L100.0100, L501.5200, L500.4100, L501.9520 #### [facility] [address] [place], [place], [id number] No Panel InformationOrdered By: Aníbal Tapia on 09-24-2023 Estimated GFR (MDRD) Amer 112 mL/min >60 [facility] Comment on above: GFR Calc Estimated GFR (MDRD) Non-Af Amer 93 mL/min >60 [facility] Comment on above: Non- GFR Calc VLDL Cholesterol 32 mg/dL 5-40 [facility] RBC Auto (Bld) [#/Vol]Ordere d By: Aníbal Tapia on 09-24-2023 RBC (Bld) [#/Vol] 4.47 10*6/uL 4.6-6.2 [facility] Serum or plasma calcium robert urement (mass/volume)Ordered By: Aníbal Tapia on 09-24-2023 Calcium [Mass/Vol] 9.6 mg/dL 8.5-10.1 [facility] Serum or plasma creatinine m easurement (mass/volume)Ordered By: Aníbal Tapia on 09-24-2023 Creatinine [Mass/Vol] 0.88 mg/dL 0.70-1.30 [facility] [place] Comment on above: The validity of the calculated GFR & GFRAA in patients over 70 years has not been determined. Clinical correlation is essential. Serum or plasma thyroid stim ulating hormone (TSH) measurement (units/volume)Ordered By: Aníbal Tapia on 09-24-2023 TSH Qn 2.93 uIU/mL 0.358-3.74 [facility] Serum or plasma urea nitroge n measurement (mass/volume)Ordered By: Aníbal Tapia on 09-24-2023 Urea nitrogen [Mass/Vol] 18 mg/dL 7-18 [facility] T4 Free Directon 09-24-2023 T4 FREE DIRECT 0.78 ng/dL Normal 0.76-1.46 [facility] Comment on above: Order Comment: Order Date: 03/10/23 Order Info: [id number] - A1C Performed By: #### L 501.9985, L500.4050, L100.0100, L501.5200, L500.4100, L501.9520 #### [facility] [place], [address] Thin prep Papanicolaou smear with manual screeningOrdered By: Aníbal Tapia on 09-24-2023 Thin prep Papanicolaou smear with manual screening 3.8 g/dL 3.2-5.0 [facility] Thin prep Papanicolaou smear with manual screening 18 U/L 15-37 [facility] Thin prep Papanicolaou smear with manual screening 8 5-15 [facility] Thin prep Papanicolaou smear with manual screening 0.78 ng/dL 0.76-1.46 [facility] Thyroid Stim Hormone (TSH)on 09-24-2023 TSH 2.93 uIU/mL Normal 0.358-3.74 [facility] Comment on above: Order Comment: Order Date: 03/10/23 Order Info: [id number] - CMP Order Info: [id number] - LIPID Order Info: [id number] - MG Order Info: 3016-3 - TSH Order Info: 3024-7 - T4F elevated TSH Performed By: #### L 501.9985, L500.4050, L100.0100, L501.5200, L500.4100, L501.9520 #### [facility] [address] [place], [address] Whole blood hemoglobin A1c/t otal hemoglobin ratio (mass fraction)Ordered By: Aníbal Tapia on 09-24-2023 HbA1c (Bld) [Mass fraction] 6.0 % 3.8-5.6 [facility] Comment on above: Normal < 5.7 % Predi abetic 5.7 - 6.4 % Diabetic >or= 6.5 % Please note range changes. Absolute lymphocyte countOrd ered By: Aníbal Tapia on 03-09-2023 Lymphocytes Auto (Unsp spec) [#/Vol] 1.91 10*3/uL 0.83-4.51 [facility] Basophil percentageOrdered B y: Aníbal Tapia on 03-09-2023 Basophils/100 WBC (Bld) 1.1 % 0-1 [facility] Bilirubin [Mass/Vol] 0.50 mg/dL 0.20-1.00 [facility] Comment on above: For patients on eltr ombopag therapy, use of Dimension [place] TBIL is not recommended. Chloride [Moles/Vol] 102 mmol/L 98-107 [facility] Cholesterol [Mass/Vol] 174 mg/dL <200 [facility] Comment on above: <200 mg/dL Desirable 200-240 mg/dL Borderline >240 mg/dL High Risk Eosinophils/100 WBC (Bld) 8.9 % 0-5 [facility] Glucose [Mass/Vol] 153 mg/dL 74-106 [facility] Comment on above: Fasting Glucose resu lt greater than or equal to 126 mg/dL suggests DIABETES MELLITUS per A.D.A. criteria. Neutrophils (Bld) [#/Vol] 2.5 10*3/uL 2.0-7.7 [facility] Neutrophils/100 WBC (Bld) 45.5 % 47-70 [facility] Potassium [Moles/Vol] 4.7 mmol/L 3.5-5.1 [facility] [place] Protein [Mass/Vol] 7.8 g/dL 6.4-8.2 [facility] Sodium [Moles/Vol] 139 mmol/L 136-145 [facility] Triglyceride [Mass/Vol] 127 mg/dL <199 [facility] Comment on above: The drugs N-Acetylcy steine and Metamizole may falsely depress this assay.Serum Triglycerides Reference Interval Normal <150 mg/dL Borderline high 150 - 199 mg/dL High 200 - 499 mg/dL Very High > or = 500 mg/dL WBC (Bld) [#/Vol] 5.5 10*3/uL 4.4-11.0 [facility] Blood erythrocytes count (nu mber/volume)Ordered By: Aníbal Tapia on 03-09-2023 RBC (Bld) [#/Vol] 4.60 10*6/uL 4.6-6.2 [facility] Blood hemoglobin measurement (mass/volume)Ordered By: Aníbal Tapia on 03-09-2023 Hemoglobin (Bld) [Mass/Vol] 14.1 g/dL 13.0-16.5 [facility] Blood lymphocytes/100 leukoc ytesOrdered By: Aníbal Tapia on 03-09-2023 Lymphocytes/100 WBC (Bld) 34.5 % 19-41 [facility] Blood monocytes/100 leukocyt esOrdered By: Aníbal Tapia on 03-09-2023 Monocytes/100 WBC (Bld) 9.6 % 0-10 [facility] Blood platelet mean volumeOr dered By: Aníbal Tapia on 03-09-2023 Platelet mean volume (Bld) [Entitic vol] 9.9 fL 6.2-12.0 [facility] Determination of erythrocyte mean corpuscular volume (MCV)Ordered By: Aníbal Tapia on 03-09-2023 MCV (RBC) [Entitic vol] 93.7 fL 80-94 [facility] Hematocrit Auto (Bld) [Volum e fraction]Ordered By: Aníbal Tapia on 03-09-2023 Hematocrit (Bld) [Volume fraction] 43.1 % 40-54 [facility] - Chemistry and C hemistry - challengeOrdered By: Aníbal Tapia on 03-09-2023 ALP [Catalytic activity/Vol] 55 U/L 45-117 [facility] ALT [Catalytic activity/Vol] 25 U/L 16-61 [facility] CO2 [Moles/Vol] 32.0 mmol/L 21.0-32.0 [facility] Free T4 [Mass/Vol] 0.92 ng/dL 0.76-1.46 [facility] Globulin (S) [Mass/Vol] 4.2 g/dL 2.2-4.2 [facility] Magnesium [Mass/Vol] 2.2 mg/dL 1.6-2.6 [facility] Urea nitrogen/Creatinine [Mass ratio] 15.4 mg/mg 10-20 [facility] - Hematology and Cell countsOrdered By: Aníbal Tapia on 03-09-2023 Erythrocyte distribution width (RBC) [Entitic vol] 41.6 fL 35.1-43.9 [facility] Erythrocyte distribution width (RBC) [Ratio] 12.2 % 11.6-14.6 [facility] Immature granulocytes/100 WBC (Bld) 0.400 % 0.0-0.9 [facility] Comment on above: IG% - Immature Granu locytes (promyelocytes, myelocytes and metamyelocytes) > 1% indicates that a LEFT SHIFT is Present. MCH (RBC) [Entitic mass] 30.7 pg 27.0-32.0 [facility] Nucleated RBC/100 WBC (Bld) [Ratio] 0 % 0-5 [facility] MCHC Auto (RBC) [Mass/Vol]Or dered By: Aníbal Tapia on 03-09-2023 MCHC (RBC) [Mass/Vol] 32.7 g/dL 32-36 [facility] [place] No Panel InformationOrdered By: Aníbal Tapia on 03-09-2023 Estimated GFR (MDRD) Amer 108 mL/min >60 [facility] Comment on above: GFR Calc Estimated GFR (MDRD) Non-Af Amer 89 mL/min >60 [facility] Comment on above: Non- GFR Calc Thyroid Stimulating Hormone (TSH) 3.75 uIU/mL 0.358-3.74 [facility] Platelets bldOrdered By: Jose Tapia on 03-09-2023 Platelets (Bld) [#/Vol] 197 10*3/uL 150-450 [facility] Serum or plasma albumin robert urement (mass/volume)Ordered By: Aníbal Tapia on 03-09-2023 Albumin [Mass/Vol] 3.6 g/dL 3.2-5.0 [facility] Serum or plasma albumin/glob ulin mass ratioOrdered By: Aníbal Tapia on 03-09-2023 Albumin/Globulin [Mass ratio] 0.9 {ratio} 0.9-2.4 [facility] Serum or plasma calcium robert urement (mass/volume)Ordered By: Aníbal Tapia on 03-09-2023 Calcium [Mass/Vol] 9.2 mg/dL 8.5-10.1 [facility] Serum or plasma cholesterol in HDL measurement (mass/volume)Ordered By: Aníbal Tapia on 03-09-2023 Cholesterol in HDL [Mass/Vol] 61 mg/dL >40 [facility] Comment on above: The drugs N-Acetylcy steine and Metamizole may falsely depress this assay. Reference Range HDL <40 mg/dL Low HDL Cholesterol HDL >or= 60 mg/dL High HDL Cholesterol Serum or plasma cholesterol in VLDL measurement (mass/volume)Ordered By: Aníbal Tapia on 03-09-2023 Cholesterol in VLDL [Mass/Vol] 25 mg/dL 5-40 [facility] Serum or plasma creatinine m easurement (mass/volume)Ordered By: Aníbal Tapia on 03-09-2023 Creatinine [Mass/Vol] 0.91 mg/dL 0.70-1.30 [facility] [place] Comment on above: The validity of the calculated GFR & GFRAA in patients over 70 years has not been determined. Clinical correlation is essential. Serum or plasma low density lipoprotein (LDL) cholesterol measurement (mass/volume)Ordered By: Aníbal Tapia on 03-09-2023 Cholesterol in LDL [Mass/Vol] 88 mg/dL 0-130 [facility] Serum or plasma urea nitroge n measurement (mass/volume)Ordered By: Aníbal Tapia on 03-09-2023 Urea nitrogen [Mass/Vol] 14 mg/dL 7-18 [facility] Thin prep Papanicolaou smear with manual screeningOrdered By: Aníbal Tapia on 03-09-2023 Thin prep Papanicolaou smear with manual screening 18 U/L 15-37 [facility] Thin prep Papanicolaou smear with manual screening 5 5-15 [facility] Whole blood hemoglobin A1c/t otal hemoglobin ratio (mass fraction)Ordered By: Aníbal Tapia on 03-09-2023 HbA1c (Bld) [Mass fraction] 6.2 % 3.8-5.6 [facility] Comment on above: Normal < 5.7 % Predi abetic 5.7 - 6.4 % Diabetic >or= 6.5 % Please note range changes. Basophil percentageOrdered B y: Aníbal Tapia on 11-06-2022 Bilirubin [Mass/Vol] 0.40 mg/dL 0.20-1.00 [facility] Comment on above: For patients on eltr ombopag therapy, use of Dimension [place] TBIL is not recommended. Protein [Mass/Vol] 7.6 g/dL 6.4-8.2 [facility] Direct bilirubinOrdered By: Aníbal Tapia on 11-06-2022 Bilirubin.direct [Mass/Vol] 0.13 mg/dL 0.00-0.30 [facility] - Chemistry and C hemistry - challengeOrdered By: Aníbal Tapia on 11-06-2022 ALP [Catalytic activity/Vol] 47 U/L 45-117 [facility] ALT [Catalytic activity/Vol] 32 U/L 16-61 [facility] Globulin (S) [Mass/Vol] 3.7 g/dL 2.2-4.2 [facility] No Panel InformationOrdered By: Aníbal Tapia on 11-06-2022 Urine Microalbumin/Creatinine Ratio 9.6 mg/g CRE <30 [facility] Serum or plasma albumin robert urement (mass/volume)Ordered By: Aníbal Tapia on 11-06-2022 Albumin [Mass/Vol] 3.9 g/dL 3.2-5.0 [facility] Thin prep Papanicolaou smear with manual screeningOrdered By: Aníbal Tapia on 11-06-2022 Thin prep Papanicolaou smear with manual screening 20 U/L 15-37 [facility] Thin prep Papanicolaou smear with manual screening 8.9 mg/L NO RANGE EST. [facility] Urine creatinine measurement (mass/volume)Ordered By: Aníbal Tapia on 11-06-2022 Creatinine (U) [Mass/Vol] 92.40 mg/dL NO RANGE EST. [facility] Absolute lymphocyte countOrd ered By: Aníbal Tapia on 10-29-2022 Lymphocytes Auto (Unsp spec) [#/Vol] 1.02 10*3/uL 0.83-4.51 [facility] Basophil percentageOrdered B y: Aníbal Tapia on 10-29-2022 Basophils/100 WBC (Bld) 0.7 % 0-1 [facility] Bilirubin [Mass/Vol] 1.30 mg/dL 0.20-1.00 [facility] Comment on above: For patients on eltr ombopag therapy, use of Dimension [place] TBIL is not recommended. Chloride [Moles/Vol] 98 mmol/L 98-107 [facility] Cholesterol [Mass/Vol] 187 mg/dL <200 [facility] Comment on above: <200 mg/dL Desirable 200-240 mg/dL Borderline >240 mg/dL High Risk Eosinophils/100 WBC (Bld) 0.5 % 0-5 [facility] Glucose [Mass/Vol] 157 mg/dL 74-106 [facility] Comment on above: Fasting Glucose resu lt greater than or equal to 126 mg/dL suggests DIABETES MELLITUS per A.D.A. criteria. Neutrophils (Bld) [#/Vol] 6.7 10*3/uL 2.0-7.7 [facility] Neutrophils/100 WBC (Bld) 77.9 % 47-70 [facility] Potassium [Moles/Vol] 4.1 mmol/L 3.5-5.1 [facility] [place] Protein [Mass/Vol] 8.4 g/dL 6.4-8.2 [facility] Sodium [Moles/Vol] 134 mmol/L 136-145 [facility] Triglyceride [Mass/Vol] 88 mg/dL <199 [facility] Comment on above: The drugs N-Acetylcy steine and Metamizole may falsely depress this assay.Serum Triglycerides Reference Interval Normal <150 mg/dL Borderline high 150 - 199 mg/dL High 200 - 499 mg/dL Very High > or = 500 mg/dL WBC (Bld) [#/Vol] 8.6 10*3/uL 4.4-11.0 [facility] Blood erythrocytes count (nu mber/volume)Ordered By: Aníbal Tapia on 10-29-2022 RBC (Bld) [#/Vol] 4.76 10*6/uL 4.6-6.2 [facility] Blood hemoglobin measurement (mass/volume)Ordered By: Aníbal Tapia on 10-29-2022 Hemoglobin (Bld) [Mass/Vol] 15.0 g/dL 13.0-16.5 [facility] Blood lymphocytes/100 leukoc ytesOrdered By: Aníbal Tapia on 10-29-2022 Lymphocytes/100 WBC (Bld) 11.8 % 19-41 [facility] Blood monocytes/100 leukocyt esOrdered By: Aníbal Tapia on 10-29-2022 Monocytes/100 WBC (Bld) 8.9 % 0-10 [facility] Blood platelet mean volumeOr dered By: Aníbal Tapia on 10-29-2022 Platelet mean volume (Bld) [Entitic vol] 10.4 fL 6.2-12.0 [facility] Determination of erythrocyte mean corpuscular volume (MCV)Ordered By: Aníbal Tapia on 10-29-2022 MCV (RBC) [Entitic vol] 93.7 fL 80-94 [facility] Hematocrit Auto (Bld) [Volum e fraction]Ordered By: Aníbal Tapia on 10-29-2022 Hematocrit (Bld) [Volume fraction] 44.6 % 40-54 [facility] - Chemistry and C hemistry - challengeOrdered By: Aníbal Tapia on 10-29-2022 ALP [Catalytic activity/Vol] 50 U/L 45-117 [facility] ALT [Catalytic activity/Vol] 20 U/L 16-61 [facility] CO2 [Moles/Vol] 28.0 mmol/L 21.0-32.0 [facility] Globulin (S) [Mass/Vol] 4.6 g/dL 2.2-4.2 [facility] Magnesium [Mass/Vol] 2.5 mg/dL 1.6-2.6 [facility] Urea nitrogen/Creatinine [Mass ratio] 12.9 mg/mg 10-20 [facility] - Hematology and Cell countsOrdered By: Aníbal Tapia on 10-29-2022 Erythrocyte distribution width (RBC) [Entitic vol] 41.9 fL 35.1-43.9 [facility] Erythrocyte distribution width (RBC) [Ratio] 12.1 % 11.6-14.6 [facility] Immature granulocytes/100 WBC (Bld) 0.200 % 0.0-0.9 [facility] Comment on above: IG% - Immature Granu locytes (promyelocytes, myelocytes and metamyelocytes) > 1% indicates that a LEFT SHIFT is Present. MCH (RBC) [Entitic mass] 31.5 pg 27.0-32.0 [facility] Nucleated RBC/100 WBC (Bld) [Ratio] 0 % 0-5 [facility] MCHC Auto (RBC) [Mass/Vol]Or dered By: Aníbal Tapia on 10-29-2022 MCHC (RBC) [Mass/Vol] 33.6 g/dL 32-36 [facility] [place] No Panel InformationOrdered By: Aníbal Tapia on 10-29-2022 Estimated GFR (MDRD) Amer 105 mL/min >60 [facility] Comment on above: GFR Calc Estimated GFR (MDRD) Non-Af Amer 87 mL/min >60 [facility] Comment on above: Non- GFR Calc Urine Microalbumin/Creatinine Ratio 507.5 mg/g CRE <30 [facility] Platelets bldOrdered By: Jose Tapia on 10-29-2022 Platelets (Bld) [#/Vol] 179 10*3/uL 150-450 [facility] Serum or plasma albumin robert urement (mass/volume)Ordered By: Aníbal Tapia on 10-29-2022 Albumin [Mass/Vol] 3.8 g/dL 3.2-5.0 [facility] Serum or plasma albumin/glob ulin mass ratioOrdered By: Aníbal Tapia on 10-29-2022 Albumin/Globulin [Mass ratio] 0.8 {ratio} 0.9-2.4 [facility] Serum or plasma calcium robert urement (mass/volume)Ordered By: Aníbal Tapia on 10-29-2022 Calcium [Mass/Vol] 9.9 mg/dL 8.5-10.1 [facility] Serum or plasma cholesterol in HDL measurement (mass/volume)Ordered By: Aníbal Tapia on 10-29-2022 Cholesterol in HDL [Mass/Vol] 73 mg/dL >40 [facility] Comment on above: The drugs N-Acetylcy steine and Metamizole may falsely depress this assay. Reference Range HDL <40 mg/dL Low HDL Cholesterol HDL >or= 60 mg/dL High HDL Cholesterol Serum or plasma cholesterol in VLDL measurement (mass/volume)Ordered By: Aníbal Tapia on 10-29-2022 Cholesterol in VLDL [Mass/Vol] 18 mg/dL 5-40 [facility] Serum or plasma creatinine m easurement (mass/volume)Ordered By: Aníbal Tapia on 10-29-2022 Creatinine [Mass/Vol] 0.93 mg/dL 0.70-1.30 [facility] [place] Comment on above: The validity of the calculated GFR & GFRAA in patients over 70 years has not been determined. Clinical correlation is essential. Serum or plasma low density lipoprotein (LDL) cholesterol measurement (mass/volume)Ordered By: Aníbal Tapia on 10-29-2022 Cholesterol in LDL [Mass/Vol] 96 mg/dL 0-130 [facility] Serum or plasma urea nitroge n measurement (mass/volume)Ordered By: Aníbal Tapia on 10-29-2022 Urea nitrogen [Mass/Vol] 12 mg/dL 7-18 [facility] Thin prep Papanicolaou smear with manual screeningOrdered By: Aníbal Tapia on 10-29-2022 Thin prep Papanicolaou smear with manual screening 16 U/L 15-37 [facility] Thin prep Papanicolaou smear with manual screening 8 5-15 [facility] Thin prep Papanicolaou smear with manual screening 269.0 mg/L NO RANGE EST. [facility] Urine creatinine measurement (mass/volume)Ordered By: Aníbal Tapia on 10-29-2022 Creatinine (U) [Mass/Vol] 53.00 mg/dL NO RANGE EST. [facility] Whole blood hemoglobin A1c/t otal hemoglobin ratio (mass fraction)Ordered By: Aníbal Tapia on 10-29-2022 HbA1c (Bld) [Mass fraction] 6.3 % 3.8-5.6 [facility] Comment on above: Normal < 5.7 % Predi abetic 5.7 - 6.4 % Diabetic >or= 6.5 % Please note range changes. Absolute lymphocyte countOrd ered By: Dr. Tapia on 07-09-2022 Lymphocytes Auto (Unsp spec) [#/Vol] 1.53 10*3/uL 0.83-4.51 [facility] Basophil percentageOrdered B y: Dr. Tapia on 07-09-2022 Basophils/100 WBC (Bld) 1.5 % 0-1 [facility] Bilirubin [Mass/Vol] 0.60 mg/dL 0.20-1.00 [facility] Comment on above: For patients on eltr ombopag therapy, use of Dimension [place] TBIL is not recommended. Chloride [Moles/Vol] 103 mmol/L 98-107 [facility] Cholesterol [Mass/Vol] 145 mg/dL <200 [facility] Comment on above: <200 mg/dL Desirable 200-240 mg/dL Borderline >240 mg/dL High Risk Eosinophils/100 WBC (Bld) 6.4 % 0-5 [facility] Glucose [Mass/Vol] 131 mg/dL 74-106 [facility] Comment on above: Fasting Glucose resu lt greater than or equal to 126 mg/dL suggests DIABETES MELLITUS per A.D.A. criteria. Neutrophils (Bld) [#/Vol] 2.8 10*3/uL 2.0-7.7 [facility] Neutrophils/100 WBC (Bld) 52.2 % 47-70 [facility] Potassium [Moles/Vol] 3.8 mmol/L 3.5-5.1 [facility] [place] Protein [Mass/Vol] 7.9 g/dL 6.4-8.2 [facility] Sodium [Moles/Vol] 138 mmol/L 136-145 [facility] Triglyceride [Mass/Vol] 96 mg/dL <199 [facility] Comment on above: The drugs N-Acetylcy steine and Metamizole may falsely depress this assay.Serum Triglycerides Reference Interval Normal <150 mg/dL Borderline high 150 - 199 mg/dL High 200 - 499 mg/dL Very High > or = 500 mg/dL WBC (Bld) [#/Vol] 5.3 10*3/uL 4.4-11.0 [facility] Blood erythrocytes count (nu mber/volume)Ordered By: Dr. Tapia on 07-09-2022 RBC (Bld) [#/Vol] 4.73 10*6/uL 4.6-6.2 [facility] Blood hemoglobin measurement (mass/volume)Ordered By: Dr. Tapia on 07-09-2022 Hemoglobin (Bld) [Mass/Vol] 14.9 g/dL 13.0-16.5 [facility] Blood lymphocytes/100 leukoc ytesOrdered By: Dr. Tapia on 07-09-2022 Lymphocytes/100 WBC (Bld) 28.8 % 19-41 [facility] Blood monocytes/100 leukocyt esOrdered By: Dr. Tapia on 07-09-2022 Monocytes/100 WBC (Bld) 10.9 % 0-10 [facility] Blood platelet mean volumeOr dered By: Dr. Tapia on 07-09-2022 Platelet mean volume (Bld) [Entitic vol] 9.7 fL 6.2-12.0 [facility] Determination of erythrocyte mean corpuscular volume (MCV)Ordered By: Dr. Tapia on 07-09-2022 MCV (RBC) [Entitic vol] 89.9 fL 80-94 [facility] Hematocrit Auto (Bld) [Volum e fraction]Ordered By: Dr. Tapia on 07-09-2022 Hematocrit (Bld) [Volume fraction] 42.5 % 40-54 [facility] - Chemistry and C hemistry - challengeOrdered By: Dr. Tapia on 07-09-2022 ALP [Catalytic activity/Vol] 49 U/L 45-117 [facility] ALT [Catalytic activity/Vol] 41 U/L 16-61 [facility] CO2 [Moles/Vol] 26.0 mmol/L 21.0-32.0 [facility] Globulin (S) [Mass/Vol] 3.9 g/dL 2.2-4.2 [facility] Magnesium [Mass/Vol] 2.1 mg/dL 1.6-2.6 [facility] Urea nitrogen/Creatinine [Mass ratio] 12.9 mg/mg 10-20 [facility] - Hematology and Cell countsOrdered By: Dr. Tapia on 07-09-2022 Erythrocyte distribution width (RBC) [Entitic vol] 37.9 fL 35.1-43.9 [facility] Erythrocyte distribution width (RBC) [Ratio] 11.7 % 11.6-14.6 [facility] Immature granulocytes/100 WBC (Bld) 0.200 % 0.0-0.9 [facility] Comment on above: IG% - Immature Granu locytes (promyelocytes, myelocytes and metamyelocytes) > 1% indicates that a LEFT SHIFT is Present. MCH (RBC) [Entitic mass] 31.5 pg 27.0-32.0 [facility] Nucleated RBC/100 WBC (Bld) [Ratio] 0 % 0-5 [facility] MCHC Auto (RBC) [Mass/Vol]Or dered By: Dr. Tapia on 07-09-2022 MCHC (RBC) [Mass/Vol] 35.1 g/dL 32-36 [facility] [place] No Panel InformationOrdered By: Dr. Tapia on 07-09-2022 Estimated GFR (MDRD) Amer 117 mL/min >60 [facility] Comment on above: GFR Calc Estimated GFR (MDRD) Non-Af Amer 96 mL/min >60 [facility] Comment on above: Non- GFR Calc Urine Microalbumin/Creatinine Ratio 5.8 mg/g CRE <30 [facility] Platelets bldOrdered By: Dr. Tapia on 07-09-2022 Platelets (Bld) [#/Vol] 201 10*3/uL 150-450 [facility] Serum or plasma albumin robert urement (mass/volume)Ordered By: Dr. Tapia on 07-09-2022 Albumin [Mass/Vol] 4.0 g/dL 3.2-5.0 [facility] Serum or plasma albumin/glob ulin mass ratioOrdered By: Dr. Tapia on 07-09-2022 Albumin/Globulin [Mass ratio] 1.0 {ratio} 0.9-2.4 [facility] Serum or plasma calcium robert urement (mass/volume)Ordered By: Dr. Tapia on 07-09-2022 Calcium [Mass/Vol] 9.5 mg/dL 8.5-10.1 [facility] Serum or plasma cholesterol in HDL measurement (mass/volume)Ordered By: Dr. Tapia on 07-09-2022 Cholesterol in HDL [Mass/Vol] 61 mg/dL >40 [facility] Comment on above: The drugs N-Acetylcy steine and Metamizole may falsely depress this assay. Reference Range HDL <40 mg/dL Low HDL Cholesterol HDL >or= 60 mg/dL High HDL Cholesterol Serum or plasma cholesterol in VLDL measurement (mass/volume)Ordered By: Dr. Tapia on 07-09-2022 Cholesterol in VLDL [Mass/Vol] 19 mg/dL 5-40 [facility] Serum or plasma creatinine m easurement (mass/volume)Ordered By: Dr. Tapia on 07-09-2022 Creatinine [Mass/Vol] 0.85 mg/dL 0.70-1.30 [facility] [place] Comment on above: The validity of the calculated GFR & GFRAA in patients over 70 years has not been determined. Clinical correlation is essential. Serum or plasma low density lipoprotein (LDL) cholesterol measurement (mass/volume)Ordered By: Dr. Tapia on 07-09-2022 Cholesterol in LDL [Mass/Vol] 65 mg/dL 0-130 [facility] Serum or plasma urea nitroge n measurement (mass/volume)Ordered By: Dr. Tapia on 07-09-2022 Urea nitrogen [Mass/Vol] 11 mg/dL 7-18 [facility] Thin prep Papanicolaou smear with manual screeningOrdered By: Dr. Tapia on 07-09-2022 Thin prep Papanicolaou smear with manual screening 25 U/L 15-37 [facility] Thin prep Papanicolaou smear with manual screening 9 5-15 [facility] Thin prep Papanicolaou smear with manual screening 5.8 mg/L NO RANGE EST. [facility] Urine creatinine measurement (mass/volume)Ordered By: Dr. Tapia on 07-09-2022 Creatinine (U) [Mass/Vol] 101.00 mg/dL NO RANGE EST. [facility] Whole blood hemoglobin A1c/t otal hemoglobin ratio (mass fraction)Ordered By: Dr. Tapia on 07-09-2022 HbA1c (Bld) [Mass fraction] 6.4 % 3.8-5.6 [facility] Comment on above: Normal < 5.7 % Predi abetic 5.7 - 6.4 % Diabetic >or= 6.5 % Please note range changes. Absolute lymphocyte countOrd ered By: Dr. Tapia on 04-08-2022 Lymphocytes Auto (Unsp spec) [#/Vol] 1.31 10*3/uL 0.83-4.51 [facility] Basophil percentageOrdered B y: Dr. Tapia on 04-08-2022 Basophils/100 WBC (Bld) 1.6 % 0-1 [facility] Bilirubin [Mass/Vol] 0.60 mg/dL 0.20-1.00 [facility] Comment on above: For patients on eltr ombopag therapy, use of Dimension [place] TBIL is not recommended. Chloride [Moles/Vol] 102 mmol/L 98-107 [facility] Cholesterol [Mass/Vol] 202 mg/dL <200 [facility] Comment on above: <200 mg/dL Desirable 200-240 mg/dL Borderline >240 mg/dL High Risk Eosinophils/100 WBC (Bld) 11.8 % 0-5 [facility] Glucose [Mass/Vol] 226 mg/dL 74-106 [facility] Comment on above: Glucose result great er than or equal to 200 mg/dLsuggests DIABETES MELLITUS per A.D.A. criteria. Neutrophils (Bld) [#/Vol] 2.0 10*3/uL 2.0-7.7 [facility] Neutrophils/100 WBC (Bld) 44.6 % 47-70 [facility] Potassium [Moles/Vol] 3.9 mmol/L 3.5-5.1 [facility] [place] Protein [Mass/Vol] 7.5 g/dL 6.4-8.2 [facility] Sodium [Moles/Vol] 137 mmol/L 136-145 [facility] Triglyceride [Mass/Vol] 251 mg/dL <199 [facility] Comment on above: The drugs N-Acetylcy steine and Metamizole may falsely depress this assay.Serum Triglycerides Reference Interval Normal <150 mg/dL Borderline high 150 - 199 mg/dL High 200 - 499 mg/dL Very High > or = 500 mg/dL WBC (Bld) [#/Vol] 4.5 10*3/uL 4.4-11.0 [facility] Blood erythrocytes count (nu mber/volume)Ordered By: Dr. Tapia on 04-08-2022 RBC (Bld) [#/Vol] 4.48 10*6/uL 4.6-6.2 [facility] Blood hemoglobin measurement (mass/volume)Ordered By: Dr. Tapia on 04-08-2022 Hemoglobin (Bld) [Mass/Vol] 14.2 g/dL 13.0-16.5 [facility] Blood lymphocytes/100 leukoc ytesOrdered By: Dr. Tapia on 04-08-2022 Lymphocytes/100 WBC (Bld) 29.1 % 19-41 [facility] Blood monocytes/100 leukocyt esOrdered By: Dr. Tapia on 04-08-2022 Monocytes/100 WBC (Bld) 12.7 % 0-10 [facility] Blood platelet mean volumeOr dered By: Dr. Tpaia on 04-08-2022 Platelet mean volume (Bld) [Entitic vol] 10.2 fL 6.2-12.0 [facility] Determination of erythrocyte mean corpuscular volume (MCV)Ordered By: Dr. Tapia on 04-08-2022 MCV (RBC) [Entitic vol] 92.0 fL 80-94 [facility] Hematocrit Auto (Bld) [Volum e fraction]Ordered By: Dr. Tapia on 04-08-2022 Hematocrit (Bld) [Volume fraction] 41.2 % 40-54 [facility] - Chemistry and C hemistry - challengeOrdered By: Dr. Tapia on 04-08-2022 ALP [Catalytic activity/Vol] 57 U/L 45-117 [facility] ALT [Catalytic activity/Vol] 47 U/L 16-61 [facility] CO2 [Moles/Vol] 29.0 mmol/L 21.0-32.0 [facility] Globulin (S) [Mass/Vol] 3.9 g/dL 2.2-4.2 [facility] Urea nitrogen/Creatinine [Mass ratio] 17.4 mg/mg 10-20 [facility] - Hematology and Cell countsOrdered By: Dr. Tapia on 04-08-2022 Erythrocyte distribution width (RBC) [Entitic vol] 39.9 fL 35.1-43.9 [facility] Erythrocyte distribution width (RBC) [Ratio] 11.9 % 11.6-14.6 [facility] Immature granulocytes/100 WBC (Bld) 0.200 % 0.0-0.9 [facility] Comment on above: IG% - Immature Granu locytes (promyelocytes, myelocytes and metamyelocytes) > 1% indicates that a LEFT SHIFT is Present. MCH (RBC) [Entitic mass] 31.7 pg 27.0-32.0 [facility] Nucleated RBC/100 WBC (Bld) [Ratio] 0 % 0-5 [facility] MCHC Auto (RBC) [Mass/Vol]Or dered By: Dr. Tapia on 04-08-2022 MCHC (RBC) [Mass/Vol] 34.5 g/dL 32-36 [facility] [place] No Panel InformationOrdered By: Dr. Tapia on 04-08-2022 Urine Microalbumin/Creatinine Ratio 7.0 mg/g CRE <30 [facility] Estimated GFR (MDRD) Amer 107 mL/min >60 [facility] Comment on above: GFR Calc Estimated GFR (MDRD) Non-Af Amer 89 mL/min >60 [facility] Comment on above: Non- GFR Calc Platelets bldOrdered By: Dr. Tapia on 04-08-2022 Platelets (Bld) [#/Vol] 197 10*3/uL 150-450 [facility] Serum or plasma albumin robert urement (mass/volume)Ordered By: Dr. Tapia on 04-08-2022 Albumin [Mass/Vol] 3.6 g/dL 3.2-5.0 [facility] Serum or plasma albumin/glob ulin mass ratioOrdered By: Dr. Tapia on 04-08-2022 Albumin/Globulin [Mass ratio] 0.9 {ratio} 0.9-2.4 [facility] Serum or plasma calcium robert urement (mass/volume)Ordered By: Dr. Tapia on 04-08-2022 Calcium [Mass/Vol] 9.0 mg/dL 8.5-10.1 [facility] Serum or plasma cholesterol in HDL measurement (mass/volume)Ordered By: Dr. Tapia on 04-08-2022 Cholesterol in HDL [Mass/Vol] 45 mg/dL >40 [facility] Comment on above: The drugs N-Acetylcy steine and Metamizole may falsely depress this assay. Reference Range HDL <40 mg/dL Low HDL Cholesterol HDL >or= 60 mg/dL High HDL Cholesterol Serum or plasma cholesterol in VLDL measurement (mass/volume)Ordered By: Dr. Tapia on 04-08-2022 Cholesterol in VLDL [Mass/Vol] 50 mg/dL 5-40 [facility] Serum or plasma creatinine m easurement (mass/volume)Ordered By: Dr. Tapia on 04-08-2022 Creatinine [Mass/Vol] 0.92 mg/dL 0.70-1.30 [facility] [place] Comment on above: The validity of the calculated GFR & GFRAA in patients over 70 years has not been determined. Clinical correlation is essential. Serum or plasma low density lipoprotein (LDL) cholesterol measurement (mass/volume)Ordered By: Dr. Tapia on 04-08-2022 Cholesterol in LDL [Mass/Vol] 107 mg/dL 0-130 [facility] Serum or plasma urea nitroge n measurement (mass/volume)Ordered By: Dr. Tapia on 04-08-2022 Urea nitrogen [Mass/Vol] 16 mg/dL 7-18 [facility] Thin prep Papanicolaou smear with manual screeningOrdered By: Dr. Tapia on 04-08-2022 Thin prep Papanicolaou smear with manual screening 20.0 mg/L NO RANGE EST. [facility] Thin prep Papanicolaou smear with manual screening 27 U/L 15-37 [facility] Thin prep Papanicolaou smear with manual screening 6 5-15 [facility] Urine creatinine measurement (mass/volume)Ordered By: Dr. Tapia on 04-08-2022 Creatinine (U) [Mass/Vol] 286.00 mg/dL NO RANGE EST. [facility] Whole blood hemoglobin A1c/t otal hemoglobin ratio (mass fraction)Ordered By: Dr. Tapia on 04-08-2022 HbA1c (Bld) [Mass fraction] 8.8 % 3.8-5.6 [facility] Comment on above: Normal < 5.7 % Predi abetic 5.7 - 6.4 % Diabetic >or= 6.5 % Please note range changes. Vital Signs Date Time Vital Sign Value Performing Clinician Facility 01-23-2024 11:23-0400 Body temperature 98.01 [degF] Ashutosh Rivera MD Work Phone: [facility] 01-23-2024 11:23-0400 Body weight 80 kg Ashutosh Rivera MD Work Phone: [facility] 01-23-2024 11:23-0400 Diastolic blood pressure 80 mm[Hg] Ashutosh Rivera MD Work Phone: [facility] 01-23-2024 11:23-0400 Heart rate 74 /min Ashutosh Rivera MD Work Phone: [facility] 01-23-2024 11:23-0400 Respiratory rate 16 /min Ashutosh Rivera MD Work Phone: [facility] 01-23-2024 11:23-0400 SaO2% (BldA) [Mass fraction] 98 % Ashutosh Rivera MD Work Phone: [facility] 01-23-2024 11:23-0400 Systolic blood pressure 132 mm[Hg] Ashutosh Rivera MD Work Phone: [facility] 08-03-2023 14:47-0500 Body height 167.[address] Aníbal Tapia Work Phone: [facility] 08-03-2023 14:47-0500 Body mass index (BMI) [Ratio] 30.2 kg/m2 Dr. Aníbal Tapia Work Phone: [facility] 08-03-2023 14:47-0500 Body weight 84.[address] Aníbal Tapia Work Phone: [facility] 08-03-2023 14:47-0500 Diastolic blood pressure 68 mm[Hg] Dr. Aníbal Tapia Work Phone: [facility] 08-03-2023 14:47-0500 Heart rate 52 /min Dr. Aníbal Tapia Work Phone: [facility] 08-03-2023 14:47-0500 Respiratory rate 18 /min Dr. Aníbal Tapia Work Phone: [facility] 08-03-2023 14:47-0500 SaO2% (BldA) [Mass fraction] 98 % Dr. Aníbal Tapia Work Phone: [facility] 08-03-2023 14:47-0500 Systolic blood pressure 121 mm[Hg] Dr. Aníbal Tapia Work Phone: [facility] 05-16-2022 13:42-0500 Body height 167.[address] Aníbal Tapia Work Phone: [facility] 05-16-2022 13:42-0500 Body mass index (BMI) [Ratio] 32.1 kg/m2 Dr. Aníbal Tapia Work Phone: [facility] 05-16-2022 13:42-0500 Body weight 90.[address] Aníbal Tapia Work Phone: [facility] 05-16-2022 13:42-0500 Diastolic blood pressure 60 mm[Hg] Dr. Aníbal Tapia Work Phone: [facility] 05-16-2022 13:42-0500 Heart rate 64 /min Dr. Aníbal Tapia Work Phone: [facility] 05-16-2022 13:42-0500 Respiratory rate 16 /min Dr. Aníbal Tapia Work Phone: [facility] 05-16-2022 13:42-0500 Systolic blood pressure 122 mm[Hg] Dr. Aníbal Tapia Work Phone: [facility] Encounters Encounter Date Encounter Type Care Provider Facility Start: 08-23-2024 End: 08-23-[address] Aníbal Tapia MD Work Phone: [facility] Work Phone: Start: 08-23-2024 End: 08-23-[address] Aníbal Tapia MD -Laboratory Work Phone: Start: 08-23-2024 End: 08-23-2024 ambulatory Aníbal Tapia Facility:[facility] Start: 01-25-2024 End: 01-25-2024 Telephone encounter Ashutosh Rivera MD Work Phone: [facility] Comment on above: Results Start: 01-23-2024 End: 01-23-2024 ambulatory Facility:[facility] Start: 01-23-2024 End: 01-23-2024 Office outpatient new 30 minutes Ashutosh Rivera MD Work Phone: [facility] Comment on above: Dysuria (Primary Dx) Start: 09-24-2023 End: 09-24-[address] Aníbal Tapia Work Phone: [facility] Work Phone: Start: 09-24-2023 End: 09-24-[address] Aníbal Tapia Work Phone: [facility] Work Phone: Start: 09-24-2023 End: 09-24-2023 ambulatory Aníbal Tapia Facility:[facility] Start: 08-03-2023 End: 08-03-[address] Aníbal Tapia Work Phone: [facility] Work Phone: Start: 03-09-2023 End: 03-09-2023 ambulatory [facility] Work Phone: Start: 03-09-2023 End: 03-09-2023 Patient encounter procedure [facility] Work Phone: Start: 11-06-2022 End: 11-06-[address] [facility] Start: 10-29-2022 End: 10-29-2022 ambulatory [facility] Work Phone: Start: 10-29-2022 End: 10-29-2022 Patient encounter procedure [facility] Work Phone: Start: 07-09-2022 End: 07-09-[address] Aníbal Tapia Work Phone: [facility] Work Phone: Start: 07-09-2022 End: 07-09-[address] Aníbal Tapia Work Phone: [facility] Start: 05-16-2022 End: 05-16-[address] Aníbal Tapia Work Phone: [facility] Start: 04-08-2022 End: 04-08-[address] Aníbal Tapia Work Phone: [facility] Procedures Date Procedure Procedure Detail Performing Clinician Start: 01-23-2024 Urnls dip stick/tabl et rgnt auto w/o microscopy Ashutosh Rivera MD Work Phone: Plan of Treatment Date Care Activity Detail Author Start: 01-31-2024 Influenza vaccination Influenza Vacc ine (#1) [facility] Start: 01-30-2023 Covid-19 Vaccine ( season) Covid-19 Vaccine ( season) [facility] Start: 2019 RSV Vaccine (1 - 1-d ose 60+ series) RSV Vaccine (1 - 1-dose 60+ series) [facility] Start: 01-26-2019 Urine microalbumin profile DTaP,Tdap,Td Vaccine (2 - Td or Tdap[facility] [facility] Start: 08-15-2014 Prostate specific antigen measurement Prostate Cancer Screening Discussion [facility] Start: 08-15-2009 Shingrix Vaccine (1 of 2) Shingrix Vaccine (1 of 2) [facility] Start: 08-15-2004 Diabetes Screening Diabetes Screenin g [facility] Start: 08-15-2004 Screening for malign ant neoplasm of colon [facility] Start: 08-15-1994 Lipid panel Lipid Screening [facility] Start: 08-15-1977 Anxiety Screening Anxiety Screening [facility] Start: 08-15-1977 Depression Screening Depression Scre ening [facility] Start: 08-15-1977 Hepatitis C screening Hepatitis C Sc reening [facility] Start: 08-15-1977 HIV screening HIV Screening [facility] Bacteria identified in Urine by Culture URINE CULTURE Microbiology Routine Dysuria Ordered: 01/23/2024 [facility] Work Phone: Comment on above: Ordered: 01/23/2024 Immunizations Immunization Date Immunization Notes Care Provider Debbie torrez 03-28-2009 influenza virus vacc ine, unspecified formulation Ashutosh Rivera MD Work Phone: [facility] Payers Date Payer Category Payer Medicare [id number] 2023 Self-pay [id number] 2023 Unknown [id number] [id number] Unknown ANTHEM [id number] Unknown [id number] Unknown [facility] [id number] Unknown [facility] [id number] Unknown [id number] Unknown [id number] Social History Date Type Detail Facility Start: 05-16-2022 End: 08-03-2023 Tobacco smoking status NHIS Unknown if ever smoked [facility] Start: 1960 Sex Assigned At Male W [facility] Start: 1960 Sex assigned at Not on file [facility] Gender identity Not on file [facility] Start: 08-03-2023 Tobacco smoking stat NHIS Never smoked tobacco (finding) [facility] Start: 08-29-2024 Sex Male (finding) [facility] Clinical Notes 01-23-2024 to 01-25-2024 Telephone Encounter - Harpreet Ott RN - 01/25/2024 10:03 AM EDTTelephone Encounter - Harpreet Ott RN - 01/25/2024 10:03 AM EDTMAshutosh Reynaga MD - 01/23/2024 11:35 AM EDT Note Date & Type Note Facility 01-25-2024 Telephone encount er Note Pt returned call and given provider's message below with verbalized understanding. [facility] 01-25-2024 Miscellaneous Notes Formattin g of this note might be different from the original. Pt returned call and given provider's message below with verbalized understanding. Left message for patient to return call for results and recommendations.Little Ahumada LPN ----- Message from Ashutosh Rivera MD sent at 01/25/2024 8:38 AM EDT ----- Urine culture showed an infection with a bacteria that should respond to the antibiotic prescribed. documented in this encounter [facility] 01-25-2024 Telephone encount er Note Left message for patient to return call for results and recommendations.Little Ahumada LPN [facility] 01-25-2024 Telephone encount er Note ----- Message from Ashutosh Rivera MD sent at 01/25/2024 8:38 AM EDT ----- Urine culture showed an infection with a bacteria that should respond to the antibiotic prescribed. [facility] 01-23-2024 Note HNO ID: [id number] Author: ASHUTOSH RIVERA MD Service: ? Author Type: Physician Type: Progress Notes Filed: 01/23/2024 11:50 Note Text: Patient presents with: Urinary Tract Infection: Entered by patient UTI: X 4 days HPI: Symptoms for about 4 days. Dysuria: Yes Frequency: Yes Hematuria: No. Urine is cloudy with odor. Discharge: No Nausea: No Fever or chills: No Back pain: unchanged low back pain Abdominal pain: No Prior UTI: Yes, treated by PCP a few years ago and feels similar. Suspicion for hot tub cause, used hot tub again last week. PHx of chlamydia. Denies concern for current exposure. Personal history of kidney stones: No Family history of kidney stones: father PAST MEDICAL HISTORY No date: Diabetes mellitus (HCC) No date: PVC (premature ventricular contraction) PAST SURGICAL HISTORY No date: INGUINAL HERNIA REPAIR HX; Left MEDICATIONS: Current Outpatient Medications Medication Sig metFORMIN ER (FORTAMET) 500 mg 24 hr tablet Take 500 mg by mouth two times a day. metoprolol tartrate, short acting, (LOPRESSOR) 50 mg tablet Take 50 mg by mouth two times a day. No current facility-administered medications for this visit. ALLERGIES: ALLERGIES Allergen Reactions Asa [Aspirin] Hives VITALS: BP 132/80 Pulse 74 Temp 36.7 ?C (98 ?F) (Tympanic) Resp 16 Wt 80 kg (176 lb 5.9 oz) SpO2 98% PHYSICAL EXAM: GEN: NAD HEENT: EOMI, conjunctiva clear, HEART: regular rate and rhythm, no murmurs LUNGS: clear to auscultation, no wheezes or crackles, no increased WOB ABDOMEN: Soft, nondistended, no masses, no suprapubic tenderness BACK: No CVA tenderness ASSESSMENT/PLAN: 1. Dysuria - ICD9: 788.1, ICD10: R30.0 - UA positive for jarrett esterase, hematuria, and proteinuria. Probable UTI - UA DIP, URINE (POC) - URINE CULTURE - advised follow up for blood on UA if no clear infection on culture. - NITROFURANTOIN MONOHYDRATE AND MACROCRYSTAL 100 MG ORAL CAP Ashutosh Rivera MD [facility] 01-23-2024 History of Presen t illness Narrative Patient presents with: Urinary Tract Infection: Entered by patient UTI: X 4 days HPI: Symptoms for about 4 days. Dysuria: Yes Frequency: Yes Hematuria: No. Urine is cloudy with odor. Discharge: No Nausea: No Fever or chills: No Back pain: unchanged low back pain Abdominal pain: No Prior UTI: Yes, treated by PCP a few years ago and feels similar. Suspicion for hot tub cause, used hot tub again last week. PHx of chlamydia. Denies concern for current exposure. Personal history of kidney stones: No Family history of kidney stones: father PAST MEDICAL HISTORY No date: Diabetes mellitus (HCC) No date: PVC (premature ventricular contraction) PAST SURGICAL HISTORY No date: INGUINAL HERNIA REPAIR HX; Left MEDICATIONS: Current Outpatient Medications Medication Sig metFORMIN ER (FORTAMET) 500 mg 24 hr tablet Take 500 mg by mouth two times a day. metoprolol tartrate, short acting, (LOPRESSOR) 50 mg tablet Take 50 mg by mouth two times a day. No current facility-administered medications for this visit. ALLERGIES: ALLERGIES Allergen Reactions Asa [Aspirin] Hives VITALS: BP 132/80 Pulse 74 Temp 36.7 C (98 F) (Tympanic) Resp 16 Wt 80 kg (176 lb 5.9 oz) SpO2 98% PHYSICAL EXAM: GEN: NAD HEENT: EOMI, conjunctiva clear, HEART: regular rate and rhythm, no murmurs LUNGS: clear to auscultation, no wheezes or crackles, no increased WOB ABDOMEN: Soft, nondistended, no masses, no suprapubic tenderness BACK: No CVA tenderness ASSESSMENT/PLAN: 1. Dysuria - ICD9: 788.1, ICD10: R30.0 - UA positive for jarrett esterase, hematuria, and proteinuria. Probable UTI - UA DIP, URINE (POC) - URINE CULTURE - advised follow up for blood on UA if no clear infection on culture. - NITROFURANTOIN MONOHYDRATE & MACROCRYSTAL 100 MG ORAL CAP Ashutosh Rivera MD documented in this encounter [facility] Evaluation note Diagnosis Onset Date Hyperglycemia acute Mixed hyperlipidemia chronic Premature ventricular contraction [facility] Work Phone: Evaluation noteNo assessment information available [facility] Work Phone: Evaluation note* Diagnosis Onset Date Resolution Status Mixed hyperlipidemia chronic Premature ventricular contraction [facility] Work Phone: Evaluation note* Diagnosis Dysuria- Primary documented [facility] this encounter [facility] (narrative)No reason for referral information availableAultman [facility] Work Phone: Chief Complaint and Reason for Visit Chief Complaint INT LABS 1 Y FU E ORDERS Reason for Visit Hyperglycemia Mixed hyperlipidemia Premature ventricular contraction Chief Complaint EORDER Chief Complaint E ORDERS Chief Complaint 1 Y FU INT LABS Reason for Visit Mixed hyperlipidemia Premature ventricular contraction Chief Complaint Admit Date INT LABS August 23, 2024 7:1 1am Family History No Family History Records Found Relationship Condition Age at Onset Recorded Date/T zulema father Malignant neoplasm Unknown Hypertension Unknown Chronic obstructive pulmonary disease Unk nown Congestive heart failure Unknown mother Diabetes mellitus Unknown sister Diabetes mellitus Unknown Malignant neoplasm of breast Unknown Advance Directives No Advanced Directives Records Found Advance Directive Response Recorded Date/ Time Living Will No May 08 12:31pm Power of Straw Hat Brim Cutter Operator No May 08, 2018 12:31pm Advance Directive Response Recorded Date/ Time Living Will No May 08 1:31pm Power of Straw Hat Brim Cutter Operator No May 08, 2018 1:31pm Summary Purpose Additional Source Comments Care Teams (unrecognized sec tion and content) Team Status: Active Member Role Status Dates Dr. Aníbal Tapia MD Family Provider Active Dr. Aníbal Tapia MD Primary Care Provider Active Team Status: Inactive Member Role Status Dates Dr. Aníbal Tapia MD Primary Care Provider, Referr ing Provider Active Dr. Lul Chapman MD Attending Provider Active Team Status: Inactive Member Role Status Dates Dr. Aníbal Tapia MD Primary Care Pr ovider, Attending Provider, Referring Provider Active Team Status: Inactive Member Role Status Dates Dr. Aníbal Tapia MD Primary Care Provider, Attend ing Provider Active Team Status: Inactive Member Role Status Dates Dr. Aníbal Tapia MD Primary Care Provider, Referr ing Provider Active Yvonne Gomez COUNTY DIRECTOR, COUNTY DIRECTOR-C Attending Provider Active Team Status: Inactive Member Role Status Dates Dr. Aníbal Tapia MD Primary Care Provider Active Start: August 23, 2024 End: August 23, 2024 Dr. Aníbal Tapia MD Attending Provider Active Start: August 23, 2024 End: August 23, 2024 Dr. Aníbal Tapia MD Referring Provider Active Start: August 23, 2024 End: August 23, 2024 Goals (unrecognized section and content) Goals may be documented in a n alternate sectionGoals may be documented in an alternate sectionGoals may be documented in an alternate sectionGoals may be documented in an alternate sectionGoals may be documented in an alternate section Source Comments (unrecognize d section and content) In the event this informatio n is protected by the Federal Confidentiality of Alcohol and Drug Abuse Patient Records regulations: The Federal rules restrict any use of the information to criminally investigate or prosecute any alcohol or drug abuse patient.[facility] the event this information is protected by the Federal Confidentiality of Alcohol and Drug Abuse Patient Records regulations: The Federal rules restrict any use of the information to criminally investigate or prosecute any alcohol or drug abuse patient.[facility] Reason for Visit (unrecogniz ed section and content) Reason Comments Urinary Tract Infection Entered by xuan nt UTI X 4 days Reason Comments Results (unrecognized sect ion and content) No Status Records FoundNo Status Records Found INFORMATION SOURCE (unrecogn ized section and content) DATE CREATED AUTHOR 01/26/2024 [facility] DATE CREATED AUTHOR AUTHOR'S ORGANIZ ATION 08/29/2024 [facility] FOR RECORDS PERTAINING TO PATIENTS WHO ARE OR HAVE BEEN ENROLLED IN A CHEMICAL DEPENDENCY/SUBSTANCEABUSE PROGRAM, SOME INFORMATION MAY BE OMITTED. This clinical summary was aggregated from multiple sources. Caution should be exercised in using it in the provision of clinical care. This summary normalizes information from multiple sources, and as a consequence, information in this document may materially change the coding, format and clinical context of patient data. In addition, data may be omitted in some cases. CLINICAL DECISIONS SHOULD BE BASED ON THE PRIMARY CLINICAL RECORDS. [employer] [facility] provides no warranty or guarantee of the accuracy or completeness of information in this document.
[2025-02-13 07:07] LABS: Hematocrit 42.2 % (40-54); Hemoglobin 14.2 g/dL (13.0-16.5); Immature Granulocytes Count 0.020 X10^3/uL (0.0-0.0); Mean Corp Hgb Conc 33.6 g/dL (32-36); Mean Corpuscular Volume 91.3 fL (80-94); Mean Platelet Vol. 9.8 fl (6.2-12.0); NRBC Flagged by Analyzer 0 % (0-5); Platelet Count 242 K/mm3 (150-450); RBC Distribution Width CV 11.8 % (11.6-14.6); RBC Distribution Width SD 39.3 fl (35.1-43.9); Red Blood Count 4.62 M/mm3 (4.6-6.2); White Blood Count 6.5 K/mm3 (4.4-11.0)
[2025-02-13 07:50] LABS: AST(SGOT) 33 U/L (<=37); Alanine Aminotransfer ALT/SGPT 45 U/L (<=46); Albumin, Serum 4.4 g/dL (3.4-4.8); Alkaline Phosphatase 53 U/L (40-129); Anion Gap 14 (5-15); BUN 15 mg/dL (4-19); BUN/Creat Ratio 17.1 RATIO (10-20); Calcium,Total 9.7 mg/dL (7.6-11.0); Carbon Dioxide 22.0 mmol/L (21.0-32.0); Chloride 102 mmol/L (98-108); Cholesterol 182 mg/dL (<=200); Globulin 3.6 g/dL (2.2-4.2); Glucose 169 mg/dL (70-99); Low Density Lipoprotein Calc. 107 mg/dL; Potassium 4.5 mmol/L (3.3-5.1); Triglycerides 118 mg/dL; Very Low Density Lipoprotein 24 mg/dL (5-40); cholesterol:hdl ratio screen 3.55
[2025-02-13 12:53] LABS: Creatinine, Urine (random) 173.00 mg/dL (39.00-259.00); Microalbumin,Random Urine < 12.0 mg/L (<20 mg/L)
== END | disposition home or self-care (01) ==
PROVIDERS: PCP Family Medicine; Referring Provider Family Medicine; Visit Provider Family Medicine
DX: E11.8 Type 2 diabetes mellitus with unspecified complications (principal); Z12.5 Encounter for screening for malignant neoplasm of prostate
CPT/HCPCS: 36415; 80053; 80061; 82043; 82570; 83036; 85025